=== PATIENT | female | born 1970 | race Caucasian/White ===

== ENCOUNTER → 2017-09-24 09:55 | Outpatient (CLI) | payer SELFPAY ==
[2017-09-24 12:38] LABS: Hematocrit 42.4 % (37-47); Hemoglobin 13.7 g/dl (12.0-15.0); Mean Corp Hgb Conc 32.3 g/gl (32-36); Mean Corpuscular Hgb 29.1 pg (27.0-32.0); Mean Platelet Vol. 9.3 fl (6.2-12.0); Platelet Count 303 K/mm3 (150-450); RBC Distribution Width CV 14.3 % (11.6-14.6); RBC Distribution Width SD 46.6 fl (35.1-43.9); Red Blood Count 4.71 M/mm3 (4.2-5.4); White Blood Count 8.3 K/mm3 (4.4-11.0)
[2017-09-24 12:40] LABS: Valproic Acid (Depakene) Level 101 ug/mL (50-100)
[2017-09-24 12:45] LABS: AST(SGOT) 18 U/L (15-37); Alanine Aminotransfer ALT/SGPT 34 U/L (13-56); Albumin, Serum 3.2 g/dL (3.2-5.0); Alkaline Phosphatase 98 U/L (45-117); Bilirubin, Direct 0.09 mg/dL (0.00-0.30); Free T3 2.4 pg/mL (2.18-3.98); Globulin 4.1 g/dL (2.2-4.2); Protein, Total 7.3 g/dL (6.4-8.2); T4 Free Direct 0.73 ng/dL (0.76-1.46); Thyroid Stim Hormone (TSH) 0.78 uIU/mL (0.358-3.74)
[2017-09-24 12:47] LABS: Scan Indicated on CBC? Y/N NO
== END ==
PROVIDERS: Family Provider Nurse Practitioner Primary Care; PCP Nurse Practitioner Primary Care; Visit Provider Psychiatry & Neurology Psychiatry
DX: F34.0 Cyclothymic disorder (principal); E03.9 Hypothyroidism, unspecified
CPT/HCPCS: 36415; 80076; 80164; 84439; 84443; 84481; 85027

== ENCOUNTER → 2018-04-15 10:09 | Outpatient (CLI) | payer SELFPAY ==
[2018-04-15 11:48] LABS: Hematocrit 44.3 % (37-47); Hemoglobin 14.4 g/dl (12.0-15.0); Mean Corp Hgb Conc 32.5 g/gl (32-36); Mean Corpuscular Hgb 30.1 pg (27.0-32.0); Mean Corpuscular Volume 92.7 fL (81-99); Mean Platelet Vol. 9.4 fl (6.2-12.0); Platelet Count 291 K/mm3 (150-450); RBC Distribution Width CV 14.1 % (11.6-14.6); RBC Distribution Width SD 46.5 fl (35.1-43.9); Red Blood Count 4.78 M/mm3 (4.2-5.4); Scan Indicated on CBC? Y/N NO
[2018-04-15 12:02] LABS: Valproic Acid (Depakene) Level 83 ug/mL (50-100)
[2018-04-15 12:10] LABS: AST(SGOT) 20 U/L (15-37); Alanine Aminotransfer ALT/SGPT 33 U/L (13-56); Albumin, Serum 3.2 g/dL (3.2-5.0); Alkaline Phosphatase 87 U/L (45-117); Bilirubin, Direct 0.07 mg/dL (0.00-0.30); Free T3 2.5 pg/mL (2.18-3.98); Globulin 4.3 g/dL (2.2-4.2); Protein, Total 7.5 g/dL (6.4-8.2); T4 Free Direct 0.72 ng/dL (0.76-1.46); Thyroid Stim Hormone (TSH) 1.58 uIU/mL (0.358-3.74)
== END ==
PROVIDERS: Family Provider Nurse Practitioner Primary Care; PCP Nurse Practitioner Primary Care; Referring Provider Psychiatry & Neurology Psychiatry; Visit Provider Psychiatry & Neurology Psychiatry
DX: F34.0 Cyclothymic disorder (principal); E03.9 Hypothyroidism, unspecified
CPT/HCPCS: 36415; 80076; 80164; 84439; 84443; 84481; 85027

== ENCOUNTER → 2018-10-17 08:44 | Outpatient (CLI) | payer SELFPAY ==
[2018-10-17 10:27] LABS: Hematocrit 44.2 % (37-47); Hemoglobin 14.3 g/dl (12.0-15.0); Mean Corp Hgb Conc 32.4 g/gl (32-36); Mean Corpuscular Hgb 30.1 pg (27.0-32.0); Mean Corpuscular Volume 93.1 fL (81-99); Mean Platelet Vol. 9.4 fl (6.2-12.0); Platelet Count 202 K/mm3 (150-450); RBC Distribution Width CV 13.4 % (11.6-14.6); RBC Distribution Width SD 45.6 fl (35.1-43.9); Red Blood Count 4.75 M/mm3 (4.2-5.4); White Blood Count 6.5 K/mm3 (4.4-11.0)
[2018-10-17 10:35] LABS: Scan Indicated on CBC? Y/N NO
[2018-10-17 10:50] LABS: ALB/GLOB Ratio 0.9 RATIO (0.9-2.4); AST(SGOT) 19 U/L (15-37); Alanine Aminotransfer ALT/SGPT 33 U/L (13-56); Albumin, Serum 3.2 g/dL (3.2-5.0); Alkaline Phosphatase 86 U/L (45-117); Anion Gap 8 (5-15); BUN 7 mg/dL (7-18); BUN/Creat Ratio 11.3 RATIO (10-20); Calcium,Total 8.7 mg/dL (8.5-10.1); Chloride 109 mmol/L (98-107); Cholesterol 175 mg/dL (200); Creatinine, Serum 0.62 mg/dL (0.55-1.02); EST Glomerular Filtration Rate 109 mL/min (>60); Est Glom Filt Rate - Afr Amer 132 mL/min (>60); Free T3 2.9 pg/mL (2.18-3.98); Globulin 3.6 g/dL (2.2-4.2); Glucose 81 mg/dL (74-106); High Density Lipoprotein 40 mg/dL; Potassium 4.4 mmol/L (3.5-5.1); Protein, Total 6.8 g/dL (6.4-8.2); Sodium Level 143 mmol/L (136-145); T4 Free Direct 0.83 ng/dL (0.76-1.46); Triglycerides 214 mg/dL; Very Low Density Lipoprotein 43 mg/dL (5-40)
[2018-10-17 11:19] LABS: Valproic Acid (Depakene) Level 104 ug/mL (50-100)
== END ==
PROVIDERS: Family Provider Nurse Practitioner Primary Care; PCP Nurse Practitioner Primary Care; Referring Provider Psychiatry & Neurology Psychiatry; Visit Provider Psychiatry & Neurology Psychiatry
DX: E03.9 Hypothyroidism, unspecified (principal); E78.00 Pure hypercholesterolemia, unspecified
CPT/HCPCS: 36415; 80053; 80061; 80164; 84439; 84443; 84481; 85027

== ENCOUNTER → 2019-04-21 10:04 | Outpatient (CLI) | payer SELFPAY ==
[2019-04-21 12:35] LABS: Hematocrit 47.4 % (37-47); Hemoglobin 15.2 g/dL (12.0-15.0); Mean Corp Hgb Conc 32.1 g/dL (32-36); Mean Corpuscular Hgb 30.2 pg (27.0-32.0); Mean Platelet Vol. 9.6 fl (6.2-12.0); Platelet Count 214 K/mm3 (150-450); RBC Distribution Width SD 44.7 fl (35.1-43.9); Red Blood Count 5.04 M/mm3 (4.2-5.4); White Blood Count 5.8 K/mm3 (4.4-11.0)
[2019-04-21 12:54] LABS: Valproic Acid (Depakene) Level 94 ug/mL (50-100)
[2019-04-21 12:58] LABS: AST(SGOT) 40 U/L (15-37); Alanine Aminotransfer ALT/SGPT 63 U/L (13-56); Albumin, Serum 3.4 g/dL (3.2-5.0); Alkaline Phosphatase 86 U/L (45-117); Bilirubin, Direct 0.06 mg/dL (0.00-0.30); Free T3 2.5 pg/mL (2.18-3.98); Globulin 4.1 g/dL (2.2-4.2); Protein, Total 7.5 g/dL (6.4-8.2); T4 Free Direct 0.76 ng/dL (0.76-1.46)
== END ==
PROVIDERS: Family Provider Nurse Practitioner Primary Care; PCP Nurse Practitioner Primary Care; Referring Provider Psychiatry & Neurology Psychiatry; Visit Provider Psychiatry & Neurology Psychiatry
DX: Z79.899 Other long term (current) drug therapy (principal)
CPT/HCPCS: 36415; 80076; 80164; 84439; 84443; 84481; 85027

== ENCOUNTER → 2019-10-21 07:23 | Outpatient (CLI) | payer SELFPAY ==
[2019-10-21 09:54] LABS: Hematocrit 46.7 % (37-47); Hemoglobin 14.9 g/dL (12.0-15.0); Mean Corp Hgb Conc 31.9 g/dL (32-36); Mean Corpuscular Hgb 29.9 pg (27.0-32.0); Mean Corpuscular Volume 93.8 fL (81-99); Mean Platelet Vol. 9.5 fl (6.2-12.0); Platelet Count 248 K/mm3 (150-450); RBC Distribution Width SD 44.6 fl (35.1-43.9); Red Blood Count 4.98 M/mm3 (4.2-5.4); White Blood Count 7.4 K/mm3 (4.4-11.0)
[2019-10-21 10:01] LABS: Valproic Acid (Depakene) Level 83 ug/mL (50-100)
[2019-10-21 10:14] LABS: AST(SGOT) 17 U/L (15-37); Alanine Aminotransfer ALT/SGPT 33 U/L (13-56); Albumin, Serum 3.2 g/dL (3.2-5.0); Alkaline Phosphatase 87 U/L (45-117); Anion Gap 7 (5-15); BUN 13 mg/dL (7-18); BUN/Creat Ratio 18.2 RATIO (10-20); Bilirubin, Direct 0.09 mg/dL (0.00-0.30); Chloride 105 mmol/L (98-107); Cholesterol 195 mg/dL (200); Creatinine, Serum 0.71 mg/dL (0.55-1.02); EST Glomerular Filtration Rate 92 mL/min (>60); Est Glom Filt Rate - Afr Amer 112 mL/min (>60); Globulin 4.2 g/dL (2.2-4.2); Glucose 108 mg/dL (74-106); High Density Lipoprotein 32 mg/dL; Potassium 3.7 mmol/L (3.5-5.1); Protein, Total 7.4 g/dL (6.4-8.2); Sodium Level 141 mmol/L (136-145); T4 Free Direct 0.77 ng/dL (0.76-1.46); Thyroid Stim Hormone (TSH) 0.11 uIU/mL (0.358-3.74); Triglycerides 397 mg/dL; Very Low Density Lipoprotein 79 mg/dL (5-40)
== END ==
PROVIDERS: PCP Nurse Practitioner Primary Care; Referring Provider Nurse Practitioner Primary Care; Visit Provider Nurse Practitioner Primary Care
DX: I10 Essential (primary) hypertension (principal); E78.2 Mixed hyperlipidemia; E03.9 Hypothyroidism, unspecified; Z79.899 Other long term (current) drug therapy
CPT/HCPCS: 36415; 80048; 80061; 80076; 80164; 84439; 84443; 84481; 85027

== ENCOUNTER → 2020-03-03 | Outpatient (CLI) | payer MEDICARE, SELFPAY | END | disposition home or self-care (01) | LOC: LABSPEC 16:54 | PROVIDERS: Referring Provider Family Medicine; Visit Provider Family Medicine | DX: Z03.818 Encounter for observation for suspected exposure to other biological agents ruled out (principal) | CPT/HCPCS: 87635; U0003 ==

== ENCOUNTER → 2020-03-17 | Outpatient (CLI) | payer MEDICARE, SELFPAY | END | disposition home or self-care (01) | LOC: LABSPEC 13:13 | PROVIDERS: Referring Provider Family Medicine; Visit Provider Family Medicine | DX: Z11.59 Encounter for screening for other viral diseases (principal) | CPT/HCPCS: 87635; U0003 ==

== ENCOUNTER → 2020-03-31 | Outpatient (CLI) | payer MEDICARE, SELFPAY | END | disposition home or self-care (01) | LOC: LABSPEC 12:42 | PROVIDERS: Referring Provider Family Medicine; Visit Provider Family Medicine | DX: Z03.818 Encounter for observation for suspected exposure to other biological agents ruled out (principal) | CPT/HCPCS: 87635; U0003 ==

== ENCOUNTER → 2020-04-14 | Outpatient (CLI) | payer MEDICARE, SELFPAY | END | disposition home or self-care (01) | LOC: LABSPEC 10:52 | PROVIDERS: Referring Provider Family Medicine; Visit Provider Family Medicine | DX: Z03.818 Encounter for observation for suspected exposure to other biological agents ruled out (principal) | CPT/HCPCS: 87635; U0003 ==

== ENCOUNTER → 2020-04-21 10:15 | Outpatient (CLI) | payer SELFPAY ==
[2020-04-21 12:25] LABS: Hematocrit 48.6 % (37-47); Hemoglobin 15.2 g/dL (12.0-15.0); Mean Corp Hgb Conc 31.3 g/dL (32-36); Mean Corpuscular Hgb 29.5 pg (27.0-32.0); Mean Corpuscular Volume 94.2 fL (81-99); Mean Platelet Vol. 9.1 fl (6.2-12.0); Platelet Count 265 K/mm3 (150-450); RBC Distribution Width SD 44.8 fl (35.1-43.9); Red Blood Count 5.16 M/mm3 (4.2-5.4); White Blood Count 7.4 K/mm3 (4.4-11.0)
[2020-04-21 13:09] LABS: AST(SGOT) 18 U/L (15-37); Alanine Aminotransfer ALT/SGPT 31 U/L (13-56); Albumin, Serum 3.4 g/dL (3.2-5.0); Alkaline Phosphatase 89 U/L (45-117); Bilirubin, Direct 0.05 mg/dL (0.00-0.30); Free T3 2.4 pg/mL (2.18-3.98); Globulin 4.2 g/dL (2.2-4.2); Protein, Total 7.6 g/dL (6.4-8.2); T4 Free Direct 0.77 ng/dL (0.76-1.46); Thyroid Stim Hormone (TSH) 0.08 uIU/mL (0.358-3.74)
[2020-04-21 13:14] LABS: Valproic Acid (Depakene) Level 102 ug/mL (50-100)
== END ==
PROVIDERS: PCP Nurse Practitioner Primary Care; Referring Provider Psychiatry & Neurology Psychiatry; Visit Provider Psychiatry & Neurology Psychiatry
DX: Z51.81 Encounter for therapeutic drug level monitoring (principal); Z79.899 Other long term (current) drug therapy; E03.9 Hypothyroidism, unspecified
CPT/HCPCS: 36415; 80076; 80164; 84439; 84443; 84481; 85027

== ENCOUNTER → 2020-04-28 | Outpatient (CLI) | payer MEDICARE, SELFPAY | END | disposition home or self-care (01) | LOC: LABSPEC 13:33 | PROVIDERS: PCP Nurse Practitioner Primary Care; Referring Provider Family Medicine; Visit Provider Family Medicine | DX: Z03.818 Encounter for observation for suspected exposure to other biological agents ruled out (principal) | CPT/HCPCS: 87635; U0003 ==

== ENCOUNTER → 2020-12-08 07:32 | Outpatient (CLI) | payer OTHER, SELFPAY ==
[2020-12-08 10:04] LABS: Hematocrit 49.6 % (37-47); Hemoglobin 15.9 g/dL (12.0-15.0); Mean Corp Hgb Conc 32.1 g/dL (32-36); Mean Corpuscular Hgb 29.6 pg (27.0-32.0); Mean Corpuscular Volume 92.4 fL (81-99); Mean Platelet Vol. 9.6 fl (6.2-12.0); Platelet Count 252 K/mm3 (150-450); RBC Distribution Width CV 13.2 % (11.6-14.6); RBC Distribution Width SD 44.9 fl (35.1-43.9); Red Blood Count 5.37 M/mm3 (4.2-5.4); White Blood Count 6.7 K/mm3 (4.4-11.0)
[2020-12-08 10:17] LABS: Valproic Acid (Depakene) Level 88 ug/mL (50-100)
[2020-12-08 10:40] LABS: ALB/GLOB Ratio 0.9 RATIO (0.9-2.4); AST(SGOT) 23 U/L (15-37); Alanine Aminotransfer ALT/SGPT 38 U/L (13-56); Albumin, Serum 3.6 g/dL (3.2-5.0); Alkaline Phosphatase 92 U/L (45-117); Anion Gap 8 (5-15); BUN 11 mg/dL (7-18); BUN/Creat Ratio 15.8 RATIO (10-20); Bilirubin, Direct 0.08 mg/dL (0.00-0.30); Calcium,Total 9.3 mg/dL (8.5-10.1); Chloride 104 mmol/L (98-107); Cholesterol 208 mg/dL (200); EST Glomerular Filtration Rate 95 mL/min (>60); Est Glom Filt Rate - Afr Amer 114 mL/min (>60); Free T3 2.6 pg/mL (2.18-3.98); Glucose 89 mg/dL (74-106); High Density Lipoprotein 42 mg/dL; Potassium 4.1 mmol/L (3.5-5.1); Protein, Total 7.6 g/dL (6.4-8.2); Sodium Level 139 mmol/L (136-145); Thyroid Stim Hormone (TSH) 0.24 uIU/mL (0.358-3.74); Triglycerides 268 mg/dL; Very Low Density Lipoprotein 54 mg/dL (5-40)
== END ==
PROVIDERS: PCP Nurse Practitioner Primary Care; Referring Provider Psychiatry & Neurology Psychiatry; Visit Provider Psychiatry & Neurology Psychiatry
DX: E78.2 Mixed hyperlipidemia (principal); I10 Essential (primary) hypertension
CPT/HCPCS: 36415; 80053; 80061; 80164; 82248; 84439; 84443; 84481; 85027

== ENCOUNTER 2021-08-18 08:27 | Outpatient (CLI) | payer SELFPAY ==
[2021-08-18 09:57] LABS: Hematocrit 46.4 % (37-47); Hemoglobin 15.1 g/dL (12.0-15.0); Mean Corp Hgb Conc 32.5 g/dL (32-36); Mean Corpuscular Hgb 30.6 pg (27.0-32.0); Mean Corpuscular Volume 93.9 fL (81-99); Mean Platelet Vol. 9.5 fl (6.2-12.0); Platelet Count 231 K/mm3 (150-450); RBC Distribution Width CV 13.2 % (11.6-14.6); RBC Distribution Width SD 45.5 fl (35.1-43.9); Red Blood Count 4.94 M/mm3 (4.2-5.4); White Blood Count 7.2 K/mm3 (4.4-11.0)
[2021-08-18 10:12] LABS: Valproic Acid (Depakene) Level 97 ug/mL (50-100)
[2021-08-18 10:17] LABS: AST(SGOT) 27 U/L (15-37); Alanine Aminotransfer ALT/SGPT 45 U/L (13-56); Albumin, Serum 3.4 g/dL (3.2-5.0); Alkaline Phosphatase 87 U/L (45-117); Bilirubin, Direct 0.08 mg/dL (0.00-0.30); Free T3 2.5 pg/mL (2.18-3.98); Globulin 4.1 g/dL (2.2-4.2); Protein, Total 7.5 g/dL (6.4-8.2); T4 Free Direct 0.88 ng/dL (0.76-1.46); Thyroid Stim Hormone (TSH) 0.43 uIU/mL (0.358-3.74)
== END 2021-08-18 23:59 | disposition home or self-care (01) ==
PROVIDERS: PCP Nurse Practitioner Primary Care; Referring Provider Psychiatry & Neurology Psychiatry; Visit Provider Psychiatry & Neurology Psychiatry
DX: E03.9 Hypothyroidism, unspecified (principal)
CPT/HCPCS: 36415; 80076; 80164; 84439; 84443; 84481; 85027

== ENCOUNTER → 2022-04-09 | Outpatient (CLI) | payer SELFPAY ==
[2022-04-09 10:01] LABS: Hematocrit 45.8 % (37-47); Hemoglobin 14.7 g/dL (12.0-15.0); Mean Corp Hgb Conc 32.1 g/dL (32-36); Mean Corpuscular Hgb 29.8 pg (27.0-32.0); Mean Corpuscular Volume 92.9 fL (81-99); Mean Platelet Vol. 9.3 fl (6.2-12.0); Platelet Count 244 K/mm3 (150-450); RBC Distribution Width CV 13.2 % (11.6-14.6); RBC Distribution Width SD 44.9 fl (35.1-43.9); Red Blood Count 4.93 M/mm3 (4.2-5.4); White Blood Count 8.4 K/mm3 (4.4-11.0)
[2022-04-09 11:20] LABS: AST(SGOT) 19 U/L (15-37); Alanine Aminotransfer ALT/SGPT 31 U/L (13-56); Albumin, Serum 3.3 g/dL (3.2-5.0); Alkaline Phosphatase 79 U/L (45-117); Bilirubin, Direct 0.08 mg/dL (0.00-0.30); Free T3 2.8 pg/mL (2.18-3.98); Globulin 4.3 g/dL (2.2-4.2); Protein, Total 7.6 g/dL (6.4-8.2); T4 Free Direct 0.82 ng/dL (0.76-1.46); Thyroid Stim Hormone (TSH) 0.27 uIU/mL (0.358-3.74); Valproic Acid (Depakene) Level 75 ug/mL (50-100)
== END | disposition home or self-care (01) ==
PROVIDERS: PCP Nurse Practitioner Primary Care; Referring Provider Psychiatry & Neurology Psychiatry; Visit Provider Psychiatry & Neurology Psychiatry
DX: E03.9 Hypothyroidism, unspecified (principal); Z79.899 Other long term (current) drug therapy
CPT/HCPCS: 36415; 80076; 80164; 84439; 84443; 84481; 85027

== ENCOUNTER → 2022-10-08 | Outpatient (CLI) | payer SELFPAY ==
[2022-10-08 09:59] LABS: Hematocrit 46.4 % (37-47); Hemoglobin 14.5 g/dL (12.0-15.0); Mean Corp Hgb Conc 31.3 g/dL (32-36); Mean Corpuscular Hgb 29.1 pg (27.0-32.0); Mean Corpuscular Volume 93.2 fL (81-99); Mean Platelet Vol. 9.1 fl (6.2-12.0); Platelet Count 255 K/mm3 (150-450); RBC Distribution Width SD 44.2 fl (35.1-43.9); Red Blood Count 4.98 M/mm3 (4.2-5.4)
[2022-10-08 10:40] LABS: Valproic Acid (Depakene) Level 98 ug/mL (50-100)
[2022-10-08 10:44] LABS: AST(SGOT) 16 U/L (15-37); Alanine Aminotransfer ALT/SGPT 31 U/L (13-56); Albumin, Serum 3.3 g/dL (3.2-5.0); Alkaline Phosphatase 88 U/L (45-117); Bilirubin, Direct 0.09 mg/dL (0.00-0.30); Free T3 2.7 pg/mL (2.18-3.98); Globulin 4.1 g/dL (2.2-4.2); Protein, Total 7.4 g/dL (6.4-8.2); T4 Free Direct 1.06 ng/dL (0.76-1.46)
== END | disposition home or self-care (01) ==
PROVIDERS: PCP Nurse Practitioner Primary Care; Referring Provider Psychiatry & Neurology Psychiatry; Visit Provider Psychiatry & Neurology Psychiatry
DX: Z51.81 Encounter for therapeutic drug level monitoring (principal); Z79.899 Other long term (current) drug therapy
CPT/HCPCS: 36415; 80076; 80164; 84439; 84443; 84481; 85027

== ENCOUNTER → 2025-01-14 | Outpatient (CLI) | payer SELFPAY ==
[2025-01-14 15:26] LABS: Hematocrit 44.6 % (37-47); Hemoglobin 14.6 g/dL (12.0-15.0); Immature Granulocytes Count 0.040 X10^3/uL (0.0-0.0); Mean Corp Hgb Conc 32.7 g/dL (32-36); Mean Corpuscular Volume 89.4 fL (81-99); Mean Platelet Vol. 9.3 fl (6.2-12.0); NRBC Flagged by Analyzer 0 % (0-5); Platelet Count 370 K/mm3 (150-450); RBC Distribution Width CV 13.2 % (11.6-14.6); RBC Distribution Width SD 43.5 fl (35.1-43.9); Red Blood Count 4.99 M/mm3 (4.2-5.4); White Blood Count 9.1 K/mm3 (4.4-11.0)
[2025-01-20 07:08] LABS: Ash, White <0.10 kU/L (Class 0); Black Walnut <0.10 kU/L (Class 0); Cat Hair / Dander,Stand <0.10 kU/L (Class 0); Cedar, Mountain <0.10 kU/L (Class 0); Cockroach, American <0.10 kU/L (Class 0); Dog Epithelia <0.10 kU/L (Class 0); Elm, American White <0.10 kU/L (Class 0); Mulberry, White <0.10 kU/L (Class 0); Oak, White <0.10 kU/L (Class 0); Pigweed, Rough <0.10 kU/L (Class 0); Ragweed, Short/Common <0.10 kU/L (Class 0); Sycamore, American <0.10 kU/L (Class 0)
[2025-01-20 16:09] LABS: Aspirgillus flavus Negative (Neg:<1:1); Aspirgillus fumigatus Negative (Neg:<1:1); Aspirgillus niger Negative (Neg:<1:1); Cytoplasmic Ab (C-ANCA) <1:20 titer (Neg:<1:20); Perinuclear Ab (P-ANCA) <1:20 titer (Neg:<1:20)
== END | disposition home or self-care (01) ==
PROVIDERS: PCP Nurse Practitioner Primary Care; Referring Provider Internal Medicine Critical Care Medicine; Visit Provider Internal Medicine Critical Care Medicine
DX: R05.3 Chronic cough (principal); J45.909 Unspecified asthma, uncomplicated
CPT/HCPCS: 36415; 82785; 85025; 86003; 86037; 86606

== ENCOUNTER → 2025-05-03 | Outpatient (CLI) | payer SELFPAY ==
--- NOTE | 2025-05-03 12:36 | ECHOD_ITS ---
Reason For Study Reason For Study: SOB Procedure This was a 2D Doppler, Color Flow transthoracic echocardiogram. The study was technically difficult. Contrast injection was performed. Exam performed in department. Left Ventricle Normal LV size. The left ventricular ejection fraction is 55 %. No regional wall motion abnormalities noted. Right Ventricle Normal RV size. Normal systolic function. Atria Normal left atrium. Normal right atrium. Mitral Valve Normal mitral valve. Tricuspid Valve Normal tricuspid valve. Aortic Valve The aortic valve is not well visualized. Pulmonic Valve The pulmonic valve is not well visualized. Great Vessels Normal aortic root. The pulmonary artery is normal size. Inferior vena cava collapse with respiration. Pericardium/Pleural No pericardial effusion. Medication 22 gauge I.V. with prn adaptor inserted into right arm. Diluted definity 2ml given slow IV push to enhance endocardial definition. MMode/2D Measurements & Calculations LVIDd: 4.6 cm IVSd: 1.0 cm Ao root diam: 3.3 cm LVIDs: 2.7 cm LVPWd: 1.4 cm FS: 40.3 % LVAd ap4: 27.3 cm2 SV(MOD-sp4): 46.2 ml SV(sp4-el): 48.4 ml LVLd ap4: 7.5 cm SI(MOD-sp4): 24.6 ml/m2 EDV(MOD-sp4): 83.4 ml EDV(sp4-el): 84.6 ml LVAs ap4: 16.3 cm2 LVLs ap4: 6.3 cm ESV(MOD-sp4): 37.2 ml ESV(sp4-el): 36.2 ml EF(MOD-sp4): 55.4 % EF(sp4-el): 57.2 % LA dimension(2D): 3.9 cm Time Measurements MV dec time: 0.16 sec Doppler Measurements & Calculations MV E max zander: 74.1 cm/sec MV V2 max: 77.7 cm/sec MV A max zander: 65.0 cm/sec MV max P.4 mmHg MV dec slope: 474.7 cm/sec2 MV E/A: 1.1 MV V2 mean: 54.3 cm/sec MV mean P.3 mmHg MV V2 VTI: 23.2 cm Ao V2 max: 121.1 cm/sec LV V1 max: 96.5 cm/sec PA V2 max: 94.5 cm/sec Ao max P.0 mmHg LV V1 max P.7 mmHg PA V2 mean: 63.5 cm/sec Ao V2 mean: 88.2 cm/sec LV V1 mean P.0 mmHg Ao mean P.5 mmHg LV V1 mean: 66.0 cm/sec Ao V2 VTI: 23.3 cm LV V1 VTI: 21.1 cm AV (velocity ratio): 0.91 ECHO/Echo Complete W/ Contrast Interpretation Summary Normal LV size. The left ventricular ejection fraction is 55 %. Contrast injection was performed. Ordering Physician: Mary Valdivia Referring Physician: Mary Valdivia Performed By: Ebony Hernandes RCS
--- NOTE | 2025-05-03 14:26 | STRESSREP ---
Stress Test Report Exercise stress test. 55-year-old lady with a history of chest pain. Stress protocol: Resting EKG demonstrates normal sinus rhythm with a rate of 82 bpm resting blood pressure is 164/90 mmHg. The patient exercised according to the regular Jae protocol for a total duration of 6 minutes attaining a maximum heart rate of 129 bpm which was 78% of maximum predicted heart rate; the maximum workload was 7 metabolic equivalents. At rest there were no ST or T wave changes noted to suggest ischemia and at peak exercise upsloping ST changes only were noted which did not meet the criteria for ischemia. No clinical angina was noted the test was terminated due to the target heart rate being achieved/fatigue. The peak blood pressure was 194/90 mmHg. Rate-pressure product was 24,400. Conclusion: Stress test with no EKG criteria for ischemia at a moderate workload. No arrhythmias noted.
--- OUTSIDE RECORDS SUMMARY | 2025-05-03 14:55 | XMS RPT_ITS | CCD ---
Author Organization [facility] CliniSyia Care Team Providers Care Email Marketing Executive Name Role Phone DEMOND HACKLER DOLL WIGS-COAL MINER, JOEL S Primary Care Physicia n Josemanuel PT, Cristy Unavailable Unavailable DEMOND HACKLER DOLL WIGS-COAL MINER, JOEL S Primary Care Unava ilable DEMOND HACKLER DOLL WIGS-COAL MINER, JOEL S Attending Unava ilable DEMOND HACKLER DOLL WIGS-COAL MINER, JOEL S Primary Care Unava ilable DEMOND HACKLER DOLL WIGS-COAL MINER, JOEL S Attending Unava ilable FRATENA HACKLER DOLL WIGS-PLATFORM LOADER, SAMMY Carmichael Attending Un available DEMOND HACKLER DOLL WIGS-COAL MINER, JOEL S Primary Care Unava ilable DEMOND HACKLER DOLL WIGS-COAL MINER, JOEL S Primary Care Unava ilable DEMOND HACKLER DOLL WIGS-COAL MINER, JOEL S Attending Unava ilable Demond DISTRIBUTION AGENT-C, Joel Primary Care Provider Dmeond DISTRIBUTION AGENT-C Joel Referring Provider Dr. Akin Meredith DO Attending Provider [phone] Dr. Akin Meredith DO Referring Provider [facility] Attending Provider FRATENA HACKLER DOLL WIGS-PLATFORM LOADER, SAMMY Carmichael Attending Un available DEMOND HACKLER DOLL WIGS-COAL MINER, JOEL S Primary Care Unava ilable DEMOND HACKLER DOLL WIGS-COAL MINER, JOEL S Attending Unava ilable DEMOND HACKLER DOLL WIGS-COAL MINER, JOEL S Primary Care Unava ilable DEMOND HACKLER DOLL WIGS-COAL MINER, JOEL S Primary Care Unava ilable FRATENA HACKLER DOLL WIGS-PLATFORM LOADER, SAMMY A Attending Un available DEMOND HACKLER DOLL WIGS-COAL MINER, JOEL S Attending Unava ilable DEMOND HACKLER DOLL WIGS-COAL MINER, JOEL S Primary Care Unava ilable DEMOND HACKLER DOLL WIGS-COAL MINER, JOEL S Attending Unava ilable DEMOND HACKLER DOLL WIGS-COAL MINER, JOEL S Primary Care Unava ilable DEMOND HACKLER DOLL WIGS-COAL MINER, JOEL S Attending Unava ilable DEMOND HACKLER DOLL WIGS-COAL MINER, JOEL S Primary Care Unava ilable DEMOND HACKLER DOLL WIGS-COAL MINER, JOEL S Attending Unava ilable DEMOND HACKLER DOLL WIGS-COAL MINER, JOEL S Primary Care Unava ilable [place], Joel Referring Unavailable Mary Valdivia Attending Unavailable Demond, Joel Primary Care Unavailable Akin Meredith Attending Unavailable Akin Meredith Referring Unavailable Demond, Joel Primary Care Unavailable Demond, Joel Primary Care Unavailable Mary Valdivia Attending Unavailable Mary Valdivia Referring Unavailable [place], Joel Referring Unavailable Mary Valdivia Attending Unavailable Demond, Joel Primary Care Unavailable Demond, Joel Primary Care Unavailable [place], Joel Referring Unavailable Akin Meredith Attending Unavailable Demond DISTRIBUTION AGENT-CJoel Primary Care Physician [phone] Demond [facility] Rivera Referring Provider Dr. Akin Meredith DO Attending Physician [phone] Dr. Akin Meredith DO Referring Provider [phone] Mary Guajardo Attending Physician [phone] Allergies Allergy Classification Reported Allergen(s) Allergy Type Date of Onset Reaction(s) Facility (14 sources) meloxicam; Translations: [meloxicam] Drug Allergy 5 Diarrhea (finding) [facility] (10 sources) Sulfonamides (Antibiotic); Translations: [sulfa drugs] Drug allergy Eruption of skin (disorder) [facility] (4 sources) Sulfonamides (Antibiotic) Allergy to substance 5 Rash [facility] (1 source) meloxicam Drug Allergy 5 [facility] (1 source) Sulfonamides (Antibiotic) Drug allergy (disorder) 5 [facility] Medications Current Medications Medication Drug Class(es) Dates Sig (Normalized) Sig (Original) 200 actuat albuterol 0.09 mg/actuat dry powder inhaler (4 sources) beta2-Adrenergic Agonist Start: 01-07-2025 albuterol MDI (90 mcg/inh) CFC free inhalation aerosol (5 sources) Start: 09-29-2024 take 1-2 puff(s) by inhalation every four hours as needed for wheezing albuterol MDI (90 mcg/inh) CFC free inhalation aerosol See Instructions, PRN Shortness of breath or wheezing, 1 to 2 puff(s) Inhalation q4h, # 18 gram(s), 11 Refill(s), Pharmacy: [facility], Community acquired pneumonia Wheezing, 165, cm, 09/29/24 10:12:00 EDT, Height, kg, 09/29/24 10:12:00 EDT, Dosing Weight Start Date: 09/29/24 Status: Ordered Medication Dispense Status: Completed Quantity: 18.0 Unit: g Total Allowed Fills: 12 Fills Dispensed: 0 Indications: Pneumonia, unspecified organism; Wheezing; Start: 01-12-2022 take 2 puff(s) by in halation every four hours as needed for wheezing albuterol MDI (90 mcg/inh) CFC free inhalation aerosol 2 puff(s), Inhalation, q4h, PRN as needed for wheezing, # 18 gram(s), 0 Refill(s), Pharmacy: [facility], Right lower lobe pneumonia, 165.8, cm, 01/12/22 16:49:00 EDT, Height Start Date: 01/12/22 Status: Ordered buPROPion hydrochloride 100 mg oral tablet (6 sources) Aminoketone Start: 08-08-2014 buPROPion 100 mg oral tablet Dose : 100 mg = 1 tab(s), Oral, Daily Start Date: 08/08/14 Status: Ordered clotrimazole 10 mg/ml topical cream (3 sources) Azole Antifungal Start: 01-29-2024 apply 1 dose topically twice daily clotrimazole 1% topical cream Apply 1 juaquin, Topical, BID, # 60 gram(s), 0 Refill(s), Pharmacy: [facility], Cream, 165, cm, 01/29/24 10:49:00 EDT, Height, 80.8, kg, 01/29/24 10:49:00 EDT, Dosing Weight Start Date: 01/29/24 Status: Ordered Medication Dispense Status: Completed Quantity: 60.0 Unit: g Total Allowed Fills: 1 Fills Dispensed: 0 FLUoxetine 20 mg oral capsule (8 sources) Serotonin Reuptake Inhibitor Start: 04-06-2025 take 2 capsules by mouth once daily Start: 01-29-2024 End: 04-06-2025 take 1 capsule by mouth once daily Fluoxetine 20 mg capsule Discontinued 20 mg PO daily January 06, 2025 11:00pm April 06, 2025 12:51pm Fluticasone Propion-Salmeter ol (4 sources) Corticosteroid, beta2-Adrenergic Agonist Start: 01-07-2025 Start: 01-07-2025 Fluticasone Pr opion-Salmeterol 250-50 mcg/dose blister with device Active 1 NMA INHALATION TWICE A DAY January 07, 2025 12:00am fluticasone-salmeterol 250 mcg-50 mcg/inh inhalation powder (2 sources) Start: 09-17-2024 take 1 dose by inhalation twice daily fluticasone-salmeterol 250 mcg-50 mcg/inh inhalation powder Dose = 1 puff(s), Inhalation, BID, # 60 EA, 11 Refill(s) Start Date: 09/17/24 Status: Ordered Medication Dispense Status: Completed Quantity: 60.0 Unit: EA Total Allowed Fills: 12 Fills Dispensed: 0 levothyroxine sodium 0.1 mg oral capsule (13 sources) l-Th yrox ine Start: 01-07-2025 take 1 capsule by mouth once daily Start: 09-29-2024 levothyroxine 100 mcg (0.1 mg) oral tablet Dose : 100 mcg = 1 tab(s), Oral, qDay, # 90 tab(s), 3 Refill(s), Pharmacy: [facility], 165, cm, 09/29/24 10:12:00 EDT, Height, kg, 09/29/24 10:12:00 EDT, Dosing Weight Start Date: 09/29/24 Status: Ordered Medication Dispense Status: Completed Quantity: 90.0 Unit: tab(s) Total Allowed Fills: 4 Fills Dispensed: 0 Start: 10-08-2023 End: 11-11-2024 levothyroxine 112 mcg (0.112 mg) oral tablet Dose : 112 mcg = 1 tab(s), Oral, qDay, # 100 tab(s), 3 Refill(s), Pharmacy: [facility], 165, cm, 07/23/23 7:21:00 EST, Height, kg, 07/23/23 7:21:00 EST, Dosing Weight Start Date: 10/08/23 Stop Date: 11/11/24 Status: Ordered Start: 06-13-2023 levothyroxine 112 mcg (0.112 mg) oral tablet Dose : 112 mcg = 1 tab(s), Oral, qDay, # 90 tab(s), 0 Refill(s), Pharmacy: [facility], 165, cm, 07/03/22 8:04:00 EST, Height, kg, 07/03/22 8:04:00 EST, Dosing Weight Start Date: 06/13/23 Status: Ordered Start: 03-05-2023 levothyroxine 112 mcg (0.112 mg) oral tablet Dose : 112 mcg = 1 tab(s), Oral, qDay, # 90 tab(s), 0 Refill(s), Pharmacy: [facility], 165, cm, 07/03/22 8:04:00 EST, Height, kg, 07/03/22 8:04:00 EST, Dosing Weight Start Date: 03/05/23 Status: Ordered Start: 12-04-2022 levothyroxine 112 mcg (0.112 mg) oral tablet Dose : 112 mcg = 1 tab(s), Oral, qDay, # 90 tab(s), 0 Refill(s), Pharmacy: [facility], 165, cm, 07/03/22 8:04:00 EST, Height Start Date: 12/04/22 Status: Ordered Start: 08-08-2014 Levothroid 112 mcg (0.112 mg) oral tablet Dose : 112 mcg = 1 tab(s), Oral, qDayAC, 0 Refill(s) Start Date: 08/08/14 Status: Ordered Start: 08-08-2014 Levothroid 112 mcg (0.112 mg) oral tablet Dose : 112 mcg = 1 tab(s), Oral, qDayAC, 0 Refill(s) Start Date: 08/08/14 Status: Ordered liothyronine sodium 0.005 mg oral tablet (5 sources) l-Triiodothyronine Start: 03-05-2023 liothyronin e 5 mcg oral tablet Dose : 5 mcg = 1 tab(s), Oral, qDay, # 90 tab(s), 0 Refill(s), Pharmacy: [facility], 165, cm, 07/03/22 8:04:00 EST, Height, kg, 07/03/22 8:04:00 EST, Dosing Weight Start Date: 03/05/23 Status: Ordered Start: 12-04-2022 liothyronine 5 mcg oral tablet Dose : 5 mcg = 1 tab(s), Oral, qDay, # 90 tab(s), 0 Refill(s), Pharmacy: [facility], 165, cm, 07/03/22 8:04:00 EST, Height Start Date: 12/04/22 Status: Ordered Start: 07-18-2021 liothyronine 5 mcg oral tablet 0 Refill(s) Start Date: 07/18/21 Status: Ordered losartan potassium 50 mg oral tablet (4 sources) Angiotensin 2 Receptor [place] Start: 03-02-2025 take 1 tablet by mouth once daily Start: 01-19-2025 losartan 50 mg oral tablet Dose : 50 mg = 1 tab(s), Oral, qDay, # 90 tab(s), 3 Refill(s), Pharmacy: [facility], 165, cm, 09/29/24 10:12:00 EDT, Height, kg, 09/29/24 10:12:00 EDT, Dosing Weight Start Date: 01/19/25 Status: Ordered Medication Dispense Status: Completed Quantity: 90.0 Unit: tab(s) Total Allowed Fills: 4 Fills Dispensed: 0 metroNIDAZOLE 500 mg oral tablet (1 source) Nitroimidazole Antimicrobial Start: 02-02-2024 End: 02-09-2024 metroNIDAZOLE 500 mg oral tablet Dose : 500 mg = 1 tab(s), Oral, q12h, X 7 day(s), # 14 tab(s), 0 Refill(s), 02/09/24 10:04:00 PM EDT, Pharmacy: [facility], 165, cm, 01/29/24 10:49:00 EDT, Height, 80.8, kg, 01/29/24 10:49:00 EDT, Dosing Weight Start Date: 02/02/24 Stop Date: 02/09/24 Status: Ordered omeprazole 20 mg delayed release oral tablet (2 sources) Proton Pump Inhibitor Start: 03-02-2025 take 1 tablet by mouth twice daily 30 minutes before breakfast predniSONE 20 mg oral tablet (1 source) Start: 04-06-2025 take 2 tablets by mouth once daily, then take 1 tablet by mouth once daily simvastatin 20 mg oral tablet (13 sources) HMG-CoA Reductase Inhibitor Start: 09-16-2024 End: 09-11-2025 take 1 tablet by mouth at bedtime Start: 07-23-2023 End: 07-17-2024 simvastatin 20 mg oral table t Dose : 20 mg = 1 tab(s), Oral, qHS, # 90 tab(s), 3 Refill(s), Pharmacy: [facility], 165, cm, 07/23/23 7:21:00 EST, Height, kg, 07/23/23 7:21:00 EST, Dosing Weight Start Date: 07/23/23 Stop Date: 07/17/24 Status: Ordered Start: 07-18-2021 End: 06-28-2023 simvastatin 20 mg oral table t Dose : 20 mg = 1 tab(s), Oral, qHS, # 90 tab(s), 3 Refill(s), Pharmacy: [facility], 165, cm, 07/03/22 8:04:00 EST, Height, kg, 07/03/22 8:04:00 EST, Dosing Weight Start Date: 07/03/22 Stop Date: 06/28/23 Status: Ordered SUMAtriptan 50 mg oral tablet (11 sources) Serotonin-1b and Serotonin-1d Receptor Agonist Start: 01-07-2025 take 1 tablet by mouth every two hours Start: 07-23-2023 End: 07-17-2024 SUMAtriptan 50 mg oral table t Dose : 50 mg = 1 tab(s), Oral, qDay, PRN as needed for migraine headache, 1 tab onset , may repeat in 2 hrs. MAX 4 tab(s)/24hrs, X 90 day(s), # 27 tab(s), 3 Refill(s), 07/17/24 7:47:00 AM EST, Pharmacy: [facility], 165, cm, 07/23/23 7:21:00 EST, Height, kg, 07/23/23 7:21:00 EST, Dosing Weight Start Date: 07/23/23 Stop Date: 07/17/24 Status: Ordered Start: 07-03-2022 take 1 tablet by nettie th every twenty-four hours SUMAtriptan 100 mg oral tablet Dose : 100 mg = 1 tab(s), Oral, qDay, PRN as needed for migraine headache, may repeat dose after 2 hours up to a maximum of 200 mg in 24 hours, # 27 tab(s), 1 Refill(s), Pharmacy: [facility], 165, cm, 07/03/22 8:04:00 EST, Height, kg, 07/03/22 8:04:00 EST, Dosing Weight Start Date: 07/03/22 Status: Ordered Start: 07-18-2021 take 1 tablet by nettie th every twenty-four hours SUMAtriptan 100 mg oral tablet Dose : 100 mg = 1 tab(s), Oral, qDay, PRN as needed for migraine headache, may repeat dose after 2 hours up to a maximum of 200 mg in 24 hours, # 27 tab(s), 0 Refill(s), Pharmacy: [place] [id number], 165, cm, 07/18/21 8:42:00 EST, Height, kg, 07/18... Start Date: 07/18/21 Status: Ordered divalproex sodium 500 mg delayed release oral tablet (13 sources) Mood Stabilizer, Anti-epileptic Agent Start: 01-07-2025 take 1 tablet by mouth twice daily Start: 04-13-2024 divalproex sod ium 500 mg oral tablet, extended release Dose : 500 mg = 1 tab(s), BID, TAKE 1 TABLET BY MOUTH TWICE DAILY Start Date: 04/13/24 Status: Ordered Medication Dispense Status: Completed Total Allowed Fills: 1 Fills Dispensed: 0 Start: 08-08-2014 take 1 tablet by nettie th in the morning, then take 2 tablets by mouth in the evening divalproex sodium 500 mg oral tablet, extended release See Instructions, 1 tab in the am, 2 tabs the pm Start Date: 08/08/14 Status: Ordered 24 hr verapamil hydrochloride 240 mg extended release oral capsule (13 sources) Calcium Channel [place] Start: 01-07-2025 take 1 capsule by mouth once daily in the morning Start: 09-29-2024 End: 09-24-2025 take 1 tablet by mouth every hour, then take 1 tablet by mouth once daily in the morning verapamil 240 mg/12 hours oral tablet, extended release Dose : 240 mg = 1 tab(s), Oral, qAM, # 90 tab(s), 3 Refill(s), Pharmacy: [facility], 165, cm, 09/29/24 10:12:00 EDT, Height, kg, 09/29/24 10:12:00 EDT, Dosing Weight Start Date: 09/29/24 Stop Date: 09/24/25 Status: Ordered Medication Dispense Status: Completed Quantity: 90.0 Unit: tab(s) Total Allowed Fills: 4 Fills Dispensed: 0 Start: 07-23-2023 End: 07-17-2024 take 1 tablet by mouth every hour, then take 1 tablet by mouth once daily in the morning verapamil 240 mg/12 hours oral tablet, extended release Dose : 240 mg = 1 tab(s), Oral, qAM, # 90 tab(s), 3 Refill(s), Pharmacy: [facility], 165, cm, 07/23/23 7:21:00 EST, Height, kg, 07/23/23 7:21:00 EST, Dosing Weight Start Date: 07/23/23 Stop Date: 07/17/24 Status: Ordered Start: 07-03-2022 End: 06-28-2023 take 1 tablet by mouth every hour, then take 1 tablet by mouth once daily in the morning verapamil 240 mg/12 hours oral tablet, extended release Dose : 240 mg = 1 tab(s), Oral, qAM, # 90 tab(s), 3 Refill(s), Pharmacy: [facility], 165, cm, 07/03/22 8:04:00 EST, Height, kg, 07/03/22 8:04:00 EST, Dosing Weight Start Date: 07/03/22 Stop Date: 06/28/23 Status: Ordered Start: 07-18-2021 End: 07-13-2022 take 1 tablet by mouth every hour, then take 1 tablet by mouth once daily in the morning verapamil 240 mg/12 hours oral tablet, extended release Dose : 240 mg = 1 tab(s), Oral, qAM, # 90 tab(s), 3 Refill(s), Pharmacy: [facility], 165, cm, 07/18/21 8:42:00 EST, Height, kg, 07/18/21 8:42:00 EST, Dosing Weight Start Date: 07/18/21 Stop Date: 07/13/22 Status: Ordered Completed/Discontinued Medications Medication Drug Class(es) Dates Sig (Normalized) Sig (Original) lisinopril 20 mg oral tablet (11 sources) Angiotensin Converting Enzyme Inhibitor Start: 01-07-2025 End: 03-02-2025 take 1 tablet by mouth once daily Lisinopril 20 mg tablet Discontinued 20 mg PO daily January 06, 2025 11:00pm March 02, 2025 8:45am Start: 07-23-2023 End: 07-17-2024 lisinopril 20 mg oral tablet Dose : 20 mg = 1 tab(s), Oral, qDay, # 90 tab(s), 3 Refill(s), Pharmacy: [facility], 165, cm, 07/23/23 7:21:00 EST, Height, kg, 07/23/23 7:21:00 EST, Dosing Weight Start Date: 07/23/23 Stop Date: 07/17/24 Status: Ordered Start: 07-18-2021 End: 06-28-2023 lisinopril 20 mg oral tablet Dose : 20 mg = 1 tab(s), Oral, qDay, # 90 tab(s), 3 Refill(s), Pharmacy: [facility], 165, cm, 07/03/22 8:04:00 EST, Height, kg, 07/03/22 8:04:00 EST, Dosing Weight Start Date: 07/03/22 Stop Date: 06/28/23 Status: Ordered Problems Active Problems Problem Classification Problem Date Documented Date Episodic/Chronic Asthma (5 sources) Asthma; Translations: [Unspecified asthma, uncomplicated] 01-14-2025 Chronic Diseases of white blood cells (6 sources) Leukocytosis; Translations: [Elevated white blood cell count, unspecified] 01-07-2025 Chronic Disorders of lipid metabolism (14 sources) Mixed hyperlipidemia; Translations: [Mixed hyperlipidemia] 07-17-2019 Chronic Essential hypertension (11 sources) Benign essential hypertension; Translations: [Hypertensive disorder] 07-17-2019 Chronic Headache; including migraine (14 sources) Migraine; Translations: [Migraine, unspecified, not intractable, without status migrainosus] 08-08-2014 Chronic Mood disorders (14 sources) Cyclothymia; 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] 07-17-2019 Chronic Mycoses (4 sources) Anogenital candidiasis; Translations: [Other urogenital candidiasis] Onset: 01-29-2024 01-29-2024 Episodic Nutritional deficiencies (1 source) Vitamin D deficiency; Translations: [Vitamin D deficiency, unspecified] Chronic Other inflammatory condition of skin (2 sources) Pruritus of vagina 02-02-2024 Episodic Other lower respiratory disease (14 sources) Chronic cough; Translations: [Chronic cough] Onset: 04-06-2025 01-14-2025 Episodic Other lower respiratory disease (4 sources) Wheezing; Translations: [Wheezing] 01-07-2025 Episodic Other lower respiratory disease (4 sources) Other nonspecific abnormal finding of lung field; Translations: [Ground glass opacity present on imaging of lung] 01-07-2025 Episodic Other lower respiratory disease (1 source) Shortness of breath; Translations: [Shortness of breath] Onset: 04-20-2025 Episodic Other lower respiratory disease (2 sources) Dyspnea; Translations: [Shortness of breath] 04-06-2025 Episodic Other screening for suspected conditions (not mental disorders or infectious disease) (6 sources) Viral screening status; Translations: [Abnormal electrocardiogram [ECG] [EKG]] Onset: 04-20-2025 07-23-2023 Episodic Pneumonia (except that caused by tuberculosis or sexually transmitted disease) (1 source) Pneumonia 07-22-2024 Episodic Residual codes; unclassified (1 source) Daytime hypersomnia; Translations: [Hypersomnia, unspecified] 04-06-2025 Chronic Thyroid disorders (10 sources) Hypothyroidism; Translations: [Hypothyroidism, unspecified] 07-23-2023 Chronic Thyroid disorders (5 sources) Thyroid dysfunction 08-08-2014 Episodic Unclassified (5 sources) Bipolar (qualifier value) 08-08-2014 Unclassified (10 sources) Cancer cervix screening status 08-01-2021 Unclassified (20 sources) Patient encounter status 05-30-2020 Unclassified (2 sources) Ground glass opacity 09-30-2024 Past or Other Problems Problem Classification Problem Date Documented Da te Episodic/Chronic Other lower respiratory disease (1 source) Wheezing; Translations: [Wheezing] Onset: 01-14-2025 Episodic Results Test Name Value Interpretation Reference Range Facility Pulmonary Visit Reporton Pulmonary Visit Report [facility] [address] [place] [address] OFFICE VISIT Date of Service: 04/06/25 MR#: [id number] Acct: [id number] Name: MEGAN ESPINOZA Rep #: [id number] 00 : 1970 Provider: Mary Valdivia NP Age/Sex: 55/F Location: [facility] Status: Signed Assessment and Plan Assessment and Plan (1) Shortness of breath: Status: Acute Plan: The patient is reporting shortness of breath associated with chest pain and tightness. The patient is also describing a chest heaviness to the right of her sternum. Her NIOX is elevated today which could suggest an asthma exacerbation and so I have recommended treating with oral prednisone at this time. She does have a faint expiratory wheeze on today's exam along with a diminished expiratory phase. She has completed an EKG from PCP which showed LVH per patient report. If the patient receives improvement in the symptoms with use of oral prednisone then the stress testing and ECHO can occur prior to follow-up. If there is no improvement in her symptoms with use of prednisone then I recommend the echo and stress testing be obtained to soon as possible. The patient will call and give an update on of this week. These 2 tests were previously ordered through [facility] [employer] system but the patient is self pay and [employer] is not giving them prices. (2) Chronic cough: Status: Chronic Plan: 80% improved with PPI for acid reflux and use of Trelegy. Her PFT from September 2024 and it does not suggest a flattened inspiratory limb or the presence of a fixed airway. I do believe that there was a combination of acid reflux disease and asthma that was contributing to her cough. Her NIOX is elevated today which continues to point towards asthma and so I recommend that she continue with Trelegy 200, 1 inhalation daily. The patient is self-pay and so I will provide samples in the office at this time and consider adjusting the regimen on follow-up after acute symptoms have improved. STOP BANG is elevated, further testing may be warranted for sleep disordered breathing and will be discussed on follow up. I have recommended that the patient follow-up in 4 weeks to review response to oral prednisone. Advance follow-up if there are worsening respiratory symptoms present or report to ER for severe worsening. Orders: Orders NIOX Today R05.3 - Chronic cough Stress Test Regular Today R06.02 - Shortness of breath, R94.31 - Abnormal electrocardiogram [ECG] [EKG] Echo Complete W/ Contrast Today R06.02 - Shortness of breath, R94.31 - Abnormal electrocardiogram [ECG] [EKG] Medications: New prednisone Take 2 tablets daily for 4 days then 1 tablet daily for 2 days. 20 mg PO QDAY 10 tabs 0RF J45.909 - Unspecified asthma, uncomplicated Plan Details Additional Comments: This note was generated with [employer] dictation software. It may contain incorrect words, spelling, and punctuation that were not noted in checking the note before signing. Follow Up: 4 Weeks (LMR) HPI HPI Comments Details: The patient is a 55-year-old female who presents to the office today for follow up of a chronic cough. She is ambulatory and currently on room air. Since last follow-up she has not been seen in the ER or urgent care for worsening respiratory symptoms. She has not received oral prednisone or antibiotics for her breathing. Previously noted by Dr. Meredith, the patient reported that she has been struggling with an intermittently productive cough since June 2024. She indicated that her cough initially began in June in the setting of an upper respiratory infection. She indicated that she has been diagnosed with several bouts of pneumonia over the course of the last year. She has never been formally diagnosed with asthma aside from indicating the possibility of exercise-induced bronchospasm 10 to 15 years ago. The patient is a lifelong non-smoker. She did not grow up in a smoking household. 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 She does not currently keep any animals as pets in her home environment. Prior pulmonary function studies completed through [facility] in September 2024 demonstrated no evidence of an obstructive ventilatory impairment. There was no significant bronchodilator response. Lung volumes and diffusing capacity were normal. CT chest without contrast from September 2024 apparently demonstrated tree-in-bud opacities in the right upper lobe. The patient then went on to have a repeat CT chest completed in December 2024 which demonstrated no significant pulmonary pathology. Her cough is 80% improved with use of omeprazole twice daily. She did use Trelegy for 2 weeks but lost the second inhaler and has been without inhaled therapy for the last 2 weeks. She denies cough today. She reports carol (more content not included)... Normal [facility] Pulmonary Visit Reporton Pulmonary Visit Report [facility] [address] [place] [address] OFFICE VISIT Date of Service: 03/02/25 MR#: [id number] Acct: [id number] Name: MEGAN ESPINOZA Rep #: [id number] : 1970 Provider: Mary Valdivia NP Age/Sex: 55/F Location: [facility].PMW Status: Signed Assessment and Plan Assessment and Plan (1) Chronic cough: Status: Chronic Plan: The patient presented today for the evaluation of a cough which has been present since June 2024 in the setting of an upper respiratory infection. CBC with differential does not show peripheral eosinophilia at this time. IgE, Aspergillus antibodies, ANCA and RAST profile were all negative. I am not suspecting an allergic component to her cough at this time. Her PFT is available to review from September 2024 and it does not suggest a flattened inspiratory limb or the presence of a fixed airway. I do believe that there is a combination of acid reflux disease and asthma that is contributing to her cough today. Her NIOX is elevated today which would suggest asthma and therefore I am recommending a trial of Trelegy 200, 1 inhalation daily. I am using this inhaler as a trial only as the patient is self-pay and this inhaler is available for samples in the office at this time. The use of this inhaler and potential side effects were reviewed with patient today. I have also recommended aggressive treatment for acid reflux and have prescribed omeprazole twice daily dosing with specific instructions of utilizing this on an empty stomach as well. I will not prescribe oral prednisone at this time as it could aggravate her GI symptoms and she will be receiving a high dose steroid component in the inhaler. The patient has nighttime symptoms but this could be due to sleep disordered breathing as well which will be further discussed on follow-up. If sleep apnea is present this could be contributing to the inflammatory process that is occurring in her upper airway. I have recommended that the patient follow-up in 4 to 6 weeks to review response to this regimen. Advance follow-up if there are worsening respiratory symptoms present. Orders: Orders NIOX Today R05.3 - Chronic cough Medications: New omeprazole 30 minutes before breakfast and 45 minutes before dinner 20 mg PO BID 60 tabs 3RF R05.3 - Chronic cough Plan She will return to the dentist for the jaw pain that she has been experiencing since the dental procedure. Plan Details Additional Comments: This note was generated with [employer] dictation software. It may contain incorrect words, spelling, and punctuation that were not noted in checking the note before signing. Follow Up: 4 to 6 weeks (LMR) HPI HPI Comments Details: The patient is a 55-year-old female who presents to the office today to review recent testing for a chronic cough. She is ambulatory and currently on room air. Since last follow-up she has not been seen in the ER or urgent care for worsening respiratory symptoms. She has not received oral prednisone or antibiotics for her breathing. She has however had worsening respiratory symptoms since Saturday. She reports that she has experienced fever and chills along with a productive cough with yellowish sputum. She indicates that she experiences shortness of breath with stairs at times and carrying items. She will have a wheeze on occasion but believes it is more in her throat, like a whistle. She experiences chest heaviness which is common for her. She has noticed hoarseness of her voice today. She reports that she awakens gasping to cough at night. She will suck on a lollipop at night and reports that this does improve her symptoms. She started having jaw pain after dentist appointment that the pain would go to her ear then down her throat but Advil helps this pain. She reports occasional heartburn and acid reflux along with vocal hoarseness. She denies any significant postnasal drainage or sinus drip. Previously noted by Dr. Meredith, the patient reported that she has been struggling with an intermittently productive cough since June 2024. She indicated that her cough initially began in June in the setting of an upper respiratory infection. She indicated that she has been diagnosed with several bouts of pneumonia over the course of the last year. She has never been formally diagnosed with asthma aside from indicating the possibility of exercise-induced bronchospasm 10 to 15 years ago. The patient is a lifelong non-smoker. She did not grow up in a smoking household. 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 She does not currently keep any animals as pets in her home environment. Prior pulmonary function studies completed through [facility] in September 2024 demonstrated no evidence of an obstructive ventila (more content not included)... Normal [facility] FT4on 01-26-2025 Free T4 [Mass/Vol] 0.85 ng/dL Normal 0.76-1.46 [facility] Comment on above: Performed By: #### T , FT4 #### [place] [address] LABORATORYOrdered By: SYSTEM SYSTEM on 01-26-2025 25-hydroxyvitamin D3 [Mass/Vol] 28.6 ng/mL Invalid Interpretation Code AO [facility] Comment on above: Interpretive Data: I nterpretive Values Based on Total 25([place]) Vitamin D: Deficient <20 ng/mL Insufficient 20 - <30 ng/mL Sufficient 30-100 ng/mL Free T4 [Mass/Vol] 0.85 ng/dL Normal 0.76 - 1.46 ng/dL AO ADM SS TSH Qn 0.93 m[IU]/L Normal 0.36 - 3.74 mcIU/mL AO ADM SS TSHon 01-26-2025 TSH Qn 0.93 m[IU]/L Normal 0.36-3.[address] [facility] Comment on above: Performed By: #### T , FT4 #### [place] [address] VIDHon 01-26-2025 Vit. D 25-Hydroxy 28.6 ng/mL Normal [facility] Comment on above: Result Comment: Inte rpretive Values Based on Total 25([place]) Vitamin D: Deficient <20 ng/mL Insufficient 20 - <30 ng/mL Sufficient 30-100 ng/mL Performed By: #### V IDH #### [facility] [address] [place], [place] [address] ANCAon 01-20-2025 Atypical pANCA <1:20 Normal Neg:<1:20 [facility] Comment on above: Result Comment: The atypical pANCA pattern has been observed in a significant percentage of patients with ulcerative colitis, primary sclerosing cholangitis and autoimmune hepatitis. Performed By: #### L 100.0100, L3200.1600, L3300.1200, L5500.0700, L3500.3600 #### [facility] [address] [place], [place], [phone] Cytoplasmic Ab <1:20 Normal Neg:<1:20 [facility] Comment on above: Performed By: #### L 100.0100, L3200.1600, L3300.1200, L5500.0700, L3500.3600 #### [facility] [address] [place], [address] Perinuclear Ab. <1:20 Normal Neg:<1:20 [facility] Comment on above: Result Comment: The presence of positive fluorescence exhibiting P-ANCA or C-ANCA patterns alone is not specific for the diagnosis of Jo's Granulomatosis (WG) or microscopic polyangiitis. Decisions about treatment should not be based solely on ANCA IFA results. The International ANCA Group Consensus recommends follow up testing of positive sera with both FL- 3 and MPO-ANCA enzyme immunoassays. As many as 5% serum samples are positive only by EIA. Ref. AM J Clin Pathol 1999;111:507-513. Performed By: #### L 100.0100, L3200.1600, L3300.1200, L5500.0700, L3500.3600 #### [facility] [address] [place], [address] Allergen Resp. Area 5on 08-0 ALTERNARIA TEN <0.10 Normal Class 0 [facility] Comment on above: Order Comment: Reaso n for Exam: chronic cough Performed By: #### L 100.0100, L3200.1600, L3300.1200, L5500.0700, L3500.3600 #### [facility] [address] [place], [address] JESUS, WHITE <0.10 Normal Class 0 [facility] Comment on above: Order Comment: Reaso n for Exam: chronic cough Performed By: #### L 100.0100, L3200.1600, L3300.1200, L5500.0700, L3500.3600 #### [facility] [address] [place], [address] ASPERGILLUS FUM <0.10 Normal Class 0 [facility] Comment on above: Order Comment: Reaso n for Exam: chronic cough Performed By: #### L 100.0100, L3200.1600, L3300.1200, L5500.0700, L3500.3600 #### [facility] [address] [place], [address] BERMUDA GRASS <0.10 Normal Class 0 [facility] Comment on above: Order Comment: Reaso n for Exam: chronic cough Performed By: #### L 100.0100, L3200.1600, L3300.1200, L5500.0700, L3500.3600 #### [facility] [address] [place], [address] BIRCH <0.10 Normal Class 0 [facility] Comment on above: Order Comment: Reaso n for Exam: chronic cough Performed By: #### L 100.0100, L3200.1600, L3300.1200, L5500.0700, L3500.3600 #### [facility] [address] [place], [address] BLACK WALNUT <0.10 Normal Class 0 [facility] Comment on above: Order Comment: Reaso n for Exam: chronic cough Performed By: #### L 100.0100, L3200.1600, L3300.1200, L5500.0700, L3500.3600 #### [facility] [address] [place], [place], [phone] ([phone]) CAT HAIR/DANDER <0.10 Normal Class 0 [facility] Comment on above: Order Comment: Reaso n for Exam: chronic cough Performed By: #### L 100.0100, L3200.1600, L3300.1200, L5500.0700, L3500.3600 #### [facility] [address] [place], [place], [phone] CLADOSPOR HERB <0.10 Normal Class 0 [facility] Comment on above: Order Comment: Reaso n for Exam: chronic cough Performed By: #### L 100.0100, L3200.1600, L3300.1200, L5500.0700, L3500.3600 #### [facility] [address] [place], [place], [phone] COCKROACH,AMER <0.10 Normal Class 0 [facility] Comment on above: Order Comment: Reaso n for Exam: chronic cough Performed By: #### L 100.0100, L3200.1600, L3300.1200, L5500.0700, L3500.3600 #### [facility] [address] [place], [place], [id number] COMMENT Comment Normal . [facility] Comment on above: Order Comment: Reaso n for Exam: chronic cough Result Comment: Carrillo sanchez of Specific IgE Class Description of Class ----- < 0.10 0 Negative 0.10 - 0.31 0/I Equivocal/Low 0.32 - 0.55 I Low 0.56 - 1.40 II Moderate 1.41 - 3.90 III High 3.91 - 19.00 IV Very High 19.01 - 100.00 V Very High >100.00 Very High Performed By: #### L 100.0100, L3200.1600, L3300.1200, L5500.0700, L3500.3600 #### [facility] [address] [place], [address] COTTONWOOD <0.10 Normal Class 0 [facility] Comment on above: Order Comment: Reaso n for Exam: chronic cough Performed By: #### L 100.0100, L3200.1600, L3300.1200, L5500.0700, L3500.3600 #### [facility] [address] [place], [place], [facility] D FARINAE MITE <0.10 Normal Class 0 [facility] Comment on above: Order Comment: Reaso n for Exam: chronic cough Performed By: #### L 100.0100, L3200.1600, L3300.1200, L5500.0700, L3500.3600 #### [facility] [address] [place], [place], [facility] D PTERONYSSINUS <0.10 Normal Class 0 [facility] Comment on above: Order Comment: Reaso n for Exam: chronic cough Performed By: #### L 100.0100, L3200.1600, L3300.1200, L5500.0700, L3500.3600 #### [facility] [address] [place], [place], [facility] DOG EPITHELIA <0.10 Normal Class 0 [facility] Comment on above: Order Comment: Reaso n for Exam: chronic cough Performed By: #### L 100.0100, L3200.1600, L3300.1200, L5500.0700, L3500.3600 #### [facility] [address] [place], [place], [facility] ELM,AMER WHITE <0.10 Normal Class 0 [facility] Comment on above: Order Comment: Reaso n for Exam: chronic cough Performed By: #### L 100.0100, L3200.1600, L3300.1200, L5500.0700, L3500.3600 #### [facility] [address] [place], [address] IMMUNOGLOB E 5 IU/mL Low 6-495 [facility] Comment on above: Order Comment: Reaso n for Exam: chronic cough Performed By: #### L 100.0100, L3200.1600, L3300.1200, L5500.0700, L3500.3600 #### [facility] [address] [place], [address] MAPLE/BOX ELDER <0.10 Normal Class 0 [facility] Comment on above: Order Comment: Reaso n for Exam: chronic cough Performed By: #### L 100.0100, L3200.1600, L3300.1200, L5500.0700, L3500.3600 #### [facility] [address] [place], [address] M[place] <0.10 Normal Class 0 [facility] Comment on above: Order Comment: Reaso n for Exam: chronic cough Performed By: #### L 100.0100, L3200.1600, L3300.1200, L5500.0700, L3500.3600 #### [facility] [address] [place], [address] Mouse Urine <0.10 Normal Class 0 [facility] Comment on above: Order Comment: Reaso n for Exam: chronic cough Performed By: #### L 100.0100, L3200.1600, L3300.1200, L5500.0700, L3500.3600 #### [facility] [address] [place], [address] MULBERRY,WHITE <0.10 Normal Class 0 [facility] Comment on above: Order Comment: Reaso n for Exam: chronic cough Performed By: #### L 100.0100, L3200.1600, L3300.1200, L5500.0700, L3500.3600 #### [facility] [address] [place], [address] OAK, WHITE <0.10 Normal Class 0 [facility] Comment on above: Order Comment: Reaso n for Exam: chronic cough Performed By: #### L 100.0100, L3200.1600, L3300.1200, L5500.0700, L3500.3600 #### [facility] [address] [place], [place], [facility] PECAN <0.10 Normal Class 0 [facility] Comment on above: Order Comment: Reaso n for Exam: chronic cough Performed By: #### L 100.0100, L3200.1600, L3300.1200, L5500.0700, L3500.3600 #### [facility] [address] [place], [place], [facility] PEN NOTATUM <0.10 Normal Class 0 [facility] Comment on above: Order Comment: Reaso n for Exam: chronic cough Performed By: #### L 100.0100, L3200.1600, L3300.1200, L5500.0700, L3500.3600 #### [facility] [address] [place], [address] PIGWEED, ROUGH <0.10 Normal Class 0 [facility] Comment on above: Order Comment: Reaso n for Exam: chronic cough Performed By: #### L 100.0100, L3200.1600, L3300.1200, L5500.0700, L3500.3600 #### [facility] [address] [place], [place], [facility] RAGWEED SH/COM <0.10 Normal Class 0 [facility] Comment on above: Order Comment: Reaso n for Exam: chronic cough Performed By: #### L 100.0100, L3200.1600, L3300.1200, L5500.0700, L3500.3600 #### [facility] [address] [place], [address] AUSTRALIAN THISTLE <0.10 Normal Class 0 [facility] Comment on above: Order Comment: Reaso n for Exam: chronic cough Performed By: #### L 100.0100, L3200.1600, L3300.1200, L5500.0700, L3500.3600 #### [facility] [address] [place], [place], [phone] SHEEP SORREL <0.10 Normal Class 0 [facility] Comment on above: Order Comment: Reaso n for Exam: chronic cough Result Comment: Perf ormed at: [facility] [id number] Wood Milling Machine Tender: Priscilla Butler MD, Phone: [phone] Performed By: #### L 100.0100, L3200.1600, L3300.1200, L5500.0700, L3500.3600 #### [facility] [address] [place], [place], [id number] SYCAMORE, AMER <0.10 Normal Class 0 [facility] Comment on above: Order Comment: Reaso n for Exam: chronic cough Performed By: #### L 100.0100, L3200.1600, L3300.1200, L5500.0700, L3500.3600 #### [facility] [address] [place], [place], [id number] WU GRASS <0.10 Normal Class 0 [facility] Comment on above: Order Comment: Reaso n for Exam: chronic cough Performed By: #### L 100.0100, L3200.1600, L3300.1200, L5500.0700, L3500.3600 #### [facility] [address] [place], [address] Aspergillus Antibodieson Asp. flavus Negative Normal Neg:<1:1 [facility] Comment on above: Performed By: #### L 100.0100, L3200.1600, L3300.1200, L5500.0700, L3500.3600 #### [facility] [address] [place], [address] Asp. fumigatus Negative Normal Neg:<1:1 [facility] Comment on above: Performed By: #### L 100.0100, L3200.1600, L3300.1200, L5500.0700, L3500.3600 #### [facility] [address] [place], [address] Asp. niger Negative Normal Neg:<1:1 [facility] Comment on above: Performed By: #### L 100.0100, L3200.1600, L3300.1200, L5500.0700, L3500.3600 #### [facility] [address] [place], [address] Immunoglobulin Reinaldo 5 IMMUNOGLOB E QN 5 IU/mL Low 6-495 [facility] Comment on above: Result Comment: Perf ormed at: - [facility] [id number] [employer] Milling Machine Tender: Russ Verma PhD, Phone: [phone] Performed at: [facility] [id number] [employer]illing Machine Tender: Priscilla Butler MD, Phone: [phone] Performed By: #### L 100.0100, L3200.1600, L3300.1200, L5500.0700, L3500.3600 #### [facility] [address] [place], [address] Absolute lymphocyte countOrd ered By: Akin Meredith on 01-14-2025 Lymphocytes Auto (Unsp spec) [#/Vol] 2.84 10*3/uL 0.83-4.51 [facility] Absolute neutrophil countOrd ered By: Akin Meredith on 01-14-2025 Neutrophils (Bld) [#/Vol] 5.4 10*3/uL 2.0-7.7 [facility] Automated lymphocyte count a s percentage of total leukocytesOrdered By: Akin Meredith on 01-14-2025 Lymphocytes/100 WBC Auto (Unsp spec) 31.3 % 19-41 [facility] Basophil percentageOrdered B y: Akin Meredith on 01-14-2025 Basophils/100 WBC (Bld) 0.6 % 0-[address] [facility] CBC W/Diff, Automatedon 12-17-2024 Absolute Lymph 2.84 X10 3/uL Normal 0.83-4.51 [facility] Comment on above: Performed By: #### L 100.0100, L3200.1600, L3300.1200, L5500.0700, L3500.3600 #### [facility] [address] [place], [address] Absolute Neut 5.4 X10 3/uL Normal 2.0-7.7 [facility] Comment on above: Performed By: #### L 100.0100, L3200.1600, L3300.1200, L5500.0700, L3500.3600 #### [facility] [address] [place], [address] Basophils/100 WBC (Bld) 0.6 % Normal 0-[address] [facility] Comment on above: Performed By: #### L 100.0100, L3200.1600, L3300.1200, L5500.0700, L3500.3600 #### [facility] [address] [place], [address] Eosinophils/100 WBC (Bld) 1.2 % Normal 0-5 [facility] Comment on above: Performed By: #### L 100.0100, L3200.1600, L3300.1200, L5500.0700, L3500.3600 #### [facility] [address] [place], [address] Erythrocyte distribution width (RBC) [Ratio] 13.2 % Normal 11.6-14.6 [facility] Comment on above: Performed By: #### L 100.0100, L3200.1600, L3300.1200, L5500.0700, L3500.3600 #### [facility] [address] [place], [address] Hematocrit (Bld) [Volume fraction] 44.6 % Normal 37-47 [facility] Comment on above: Performed By: #### L 100.0100, L3200.1600, L3300.1200, L5500.0700, L3500.3600 #### [facility] [address] [place], [address] Hemoglobin (Bld) [Mass/Vol] 14.6 g/dL Normal 12.0-15. 0 [facility] Comment on above: Performed By: #### L 100.0100, L3200.1600, L3300.1200, L5500.0700, L3500.3600 #### [facility] [address] [place], [address] IG% 0.400 Normal 0.0-0.9 [facility] Comment on above: Result Comment: IG% - Immature Granulocytes (promyelocytes, myelocytes and metamyelocytes) > 1% indicates that a LEFT SHIFT is Present. Performed By: #### L 100.0100, L3200.1600, L3300.1200, L5500.0700, L3500.3600 #### [facility] [address] [place], [address] Lymphocytes/100 WBC (Bld) 31.3 % Normal 19-41 [facility] Comment on above: Performed By: #### L 100.0100, L3200.1600, L3300.1200, L5500.0700, L3500.3600 #### [facility] [address] [place], [address] MCH (RBC) [Entitic mass] 29.3 pg Normal 27.0-32.0 [facility] Comment on above: Performed By: #### L 100.0100, L3200.1600, L3300.1200, L5500.0700, L3500.3600 #### [facility] [address] [place], [address] MCHC (RBC) [Mass/Vol] 32.7 g/dL Normal 32-36 [facility] Comment on above: Performed By: #### L 100.0100, L3200.1600, L3300.1200, L5500.0700, L3500.3600 #### [facility] [address] [place], [address] MCV (RBC) [Entitic vol] 89.4 fL Normal 81-[address] [facility] Comment on above: Performed By: #### L 100.0100, L3200.1600, L3300.1200, L5500.0700, L3500.3600 #### [facility] [address] [place], [address] Monocytes/100 WBC (Bld) 7.6 % Normal 0-10 [facility] Comment on above: Performed By: #### L 100.0100, L3200.1600, L3300.1200, L5500.0700, L3500.3600 #### [facility] [address] [place], [address] Neutrophils/100 WBC (Bld) 58.9 % Normal 47-70 [facility] Comment on above: Performed By: #### L 100.0100, L3200.1600, L3300.1200, L5500.0700, L3500.3600 #### [facility] [address] [place], [address] Nucleated RBC (Bld) [#/Vol] 0 10*3/uL Normal 0-5 [facility] Comment on above: Performed By: #### L 100.0100, L3200.1600, L3300.1200, L5500.0700, L3500.3600 #### [facility] [address] [place], [address] Platelet mean volume (Bld) [Entitic vol] 9.3 fL Normal 6.2-12.0 [facility] Comment on above: Performed By: #### L 100.0100, L3200.1600, L3300.1200, L5500.0700, L3500.3600 #### [facility] [address] [place], [address] Platelets (Bld) [#/Vol] 370 10*3/uL Normal 150-450 [facility] Comment on above: Performed By: #### L 100.0100, L3200.1600, L3300.1200, L5500.0700, L3500.3600 #### [facility] [address] [place], [address] RBC (Bld) [#/Vol] 4.99 10*6/uL Normal 4.2-5.4 [facility] Comment on above: Performed By: #### L 100.0100, L3200.1600, L3300.1200, L5500.0700, L3500.3600 #### [facility] [address] [place], [address] RDW SD 43.5 fl Normal 35.1-43.9 [facility] Comment on above: Performed By: #### L 100.0100, L3200.1600, L3300.1200, L5500.0700, L3500.3600 #### [facility] [address] [place], [address] WBC (Bld) [#/Vol] 9.1 10*3/uL Normal 4.4-11.0 [facility] Comment on above: Performed By: #### L 100.0100, L3200.1600, L3300.1200, L5500.0700, L3500.3600 #### [facility] [address] [place], [address] Eosinophil percentageOrdered By: Akin Meredith on 01-14-2025 Eosinophils/100 WBC (Bld) 1.2 % 0-5 [facility] Erythrocyte distribution wid th ratioOrdered By: Akin Meredith on 01-14-2025 Erythrocyte distribution width (RBC) [Ratio] 13.2 % 11.6-14.6 [facility] Erythrocyte distribution wid th standard deviationOrdered By: Akin Meredith on 01-14-2025 Erythrocyte distribution width (RBC) [Ratio] 43.5 fl 35.1-43.9 [facility] Hematocrit Auto (Bld) [Volum e fraction]Ordered By: Akin Meredith on 01-14-2025 Hematocrit (Bld) [Volume fraction] 44.6 % 37-47 [facility] Hemoglobin measurementOrdere d By: Akin Meredith on 01-14-2025 Hemoglobin (Bld) [Mass/Vol] 14.6 g/dL 12.0-15. 0 [facility] IgEOrdered By: Akin rodriguez n 01-14-2025 IgE 5 IU/mL Low 6-495 [facility] Comment on above: Performed at: [address] [id number] Director: Russ Verma PhD, Phone: [phone] at: [facility] [id number] Director: Priscilla Butler MD, Phone: [phone] Immature granulocytes/100 WB C Auto (Bld)Ordered By: Akin Meredith on 01-14-2025 Immature granulocytes/100 WBC (Bld) 0.400 % 0.0-0.9 [facility] Comment on above: IG% - Immature Granu locytes (promyelocytes, myelocytes and metamyelocytes) > 1% indicates that a LEFT SHIFT is Present. MCV (mean corpuscular volume ) determinationOrdered By: Akin Meredith on 01-14-2025 MCV (RBC) [Entitic vol] 89.4 fL 81-[address] [facility] Mean corpuscular hemoglobin (MCH) determinationOrdered By: Akin Meredith 01-14-2025 MCH (RBC) [Entitic mass] 29.3 pg 27.0-32.0 [facility] Mean corpuscular hemoglobin concentration (MCHC) determinationOrdered By: Akin Meredith 01-14-2025 MCHC (RBC) [Mass/Vol] 32.7 g/dL 32-36 [facility] Mean platelet volume determi nationOrdered By: Akin Meredith on 01-14-2025 Platelet mean volume (Bld) [Entitic vol] 9.3 fL 6.2-12.0 [facility] Monocyte percentageOrdered B y: Akin Meredith on 01-14-2025 Monocytes/100 WBC (Bld) 7.6 % 0-[address] [facility] Neutrophil percentageOrdered By: Akin Meredith on 01-14-2025 Neutrophils/100 WBC (Bld) 58.9 % 47-70 [facility] No Panel InformationOrdered By: Akin Meredith on 01-14-2025 RAST Comment Comment . [facility] Comment on above: Levels of Specific I gE Class Description of Class ----- < 0.10 0 Negative 0.10 - 0.31 0/I Equivocal/Low 0.32 - 0.55 I Low 0.56 - 1.40 II Moderate 1.41 - 3.90 III High 3.91 - 19.00 IV Very High 19.01 - 100.00 V Very High >100.00 Very High Nucleated red blood cell per centageOrdered By: Akin Meredith on 01-14-2025 Nucleated RBC/100 WBC (Bld) [Ratio] 0 % 0-5 [facility] Platelet countOrdered By: Monsalve on 01-14-2025 Platelets (Bld) [#/Vol] 370 10*3/uL 150-450 [facility] Pulmonary Visit Reporton Pulmonary Visit Report [facility] [address] [place] [address]. [address] [place] [address] OFFICE VISIT Date of Service: 01/14/25 MR#: [id number] Acct: [id number] Name: MEGAN ESPINOZA Rep #: [id number] : 1970 Provider: Dr. Akin Meredith DO Age/Sex: 55/F Location: [facility].PMW Status: Signed Assessment and Plan Assessment and Plan (1) Chronic cough: Status: Chronic Plan: The patient presented today for the evaluation of a cough which has been present since June 2024 in the setting of an upper respiratory infection. Prior pulmonary function studies were unremarkable. Recent CT imaging of the chest completed at the beginning of December 2024 was also unremarkable. She has a normal exhaled nitric oxide level at today's office visit. At the present time, the patient is currently on an MORGAN inhibitor, which I have recommended he discontinued. I do suspect that the patient may have an underlying component of vocal cord dysfunction, given her symptoms reported at today's visit. Will plan to obtain additional lab work including CBC with differential to evaluate for peripheral eosinophilia, IgE, Aspergillus antibodies, ANCA and RAST profile. The patient has never responded symptomatically to the use of bronchodilators, which certainly suggest an alternative diagnosis to asthma. If the patient continues to have a cough and asthma-like symptoms after discontinuation of MORGAN inhibitor, recommend referral to speech therapy for possible swallow evaluation and laryngeal control therapy, given suspicion for vocal cord dysfunction. Result: Oral exhaled NO (ppb): 18 Normal: 5-20 ppb (Adult) High Normal/Increased: 20-35 ppb (Adult). Moderately raised exhaled nitric oxide may indicate underlying inflammation, but notes that cold and influenza can raise exhaled nitric oxide in some patients have higher baseline levels than others. High: >35 ppb (Adult). Indicative of ongoing eosinophilic inflammation. Symptomatic patient likely to respond to steroids. Possible causes include: Poor compliance, recent allergen exposure, steroid dose inadequate, and steroid resistance. Orders: Orders NIOX 01/14/25 R06.2 - Wheezing Immunoglobulin E 01/14/25 J45.909 - Unspecified asthma, uncomplicated, R05.3 - Chronic cough Aspergillus Antibodies 01/14/25 J45.909 - Unspecified asthma, uncomplicated, R05.3 - Chronic cough CBC W/Diff, Automated 01/14/25 J45.909 - Unspecified asthma, uncomplicated, R05.3 - Chronic cough ANCA 01/14/25 J45.909 - Unspecified asthma, uncomplicated, R05.3 - Chronic cough Allergen Resp. Area 5 01/14/25 J45.909 - Unspecified asthma, uncomplicated, R05.3 - Chronic cough PFT Complete - DLCO, Spirometry b/a bronchodilators, lung volumes 01/14/25 R05.3 - Chronic cough HPI HPI Comments Details: The patient is a 55-year-old female who presents to the clinic today in referral for the evaluation of a chronic cough. The patient reported that she has been struggling with an intermittently productive cough since June 2024. She indicated that her cough initially began in June in the setting of an upper respiratory infection. She indicated that she has been diagnosed with several bouts of pneumonia over the course of the last year. She has never been formally diagnosed with asthma aside from indicating the possibility of exercise-induced bronchospasm 10 to 15 years ago. The patient is a lifelong non-smoker. She did not grow up in a smoking household. 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 She does not currently keep any animals as pets in her home environment. She denies any fevers, chills or night sweats. She does report occasional dyspnea along with intermittent chest tightness and wheezing. She often times experiences her cough when she is eating and describes a sensation that things are getting stuck. The patient has never been formally diagnosed with anxiety, but does report a tightness in her throat during these episodes along with the sensation that she is breathing through a straw. She has been prescribed albuterol as needed in the past, without any significant symptom relief. The patient is currently prescribed an MORGAN inhibitor for management of her hypertension. She does report occasional heartburn and reflux along with vocal hoarseness. She denies any significant sinus drainage or postnasal drip. Prior pulmonary function studies completed through [facility] in September 2024 demonstrated no evidence of an obstructive ventilatory impairment. There was no significant bronchodilator response. Lung volumes and diffusing capacity were normal. CT chest without contrast from September 2024 apparently demonstrated tree-in-bud opacities in the right upper lobe. The patient then went on to have a repeat CT chest completed in December 2024 which demonstrate (more content not included)... Normal [facility] RBC Auto (Bld) [#/Vol]Ordere d By: Akin Meredith on 01-14-2025 RBC (Bld) [#/Vol] 4.99 10*6/uL 4.2-5.4 [facility] Serum [place] sycamore IgE antibody assay (units/volume)Ordered By: Akin Meredith on 01-14-2025 [place] IgE Qn (S) <0.10 kU/L Class 0 [facility] Serum Aspergillus flavus ant ibody detection by immunodiffusionOrdered By: Akin Meredith on 01-14-2025 A. flavus Ab Immune diff Ql (S) Negative Neg:<1:1 [facility] Serum Aspergillus fumigatus IgE antibody assay (units/volume)Ordered By: Akin Meredith on 01-14-2025 A. fumigatus IgE Qn (S) <0.10 kU/L Class 0 [facility] Serum Aspergillus fumigatus antibody detection by immunodiffusionOrdered By: Akin Meredith on 01-14-2025 A. fumigatus Ab Immune diff Ql (S) Negative Neg:<1:1 [facility] Serum Aspergillus niger anti body detection by immunodiffusionOrdered By: Akin Meredith on 01-14-2025 A. niger Ab Immune diff Ql (S) Negative Neg:<1:1 [facility] Serum Bermuda grass IgE anti body assay (units/volume)Ordered By: Akin Meredith on 01-14-2025 Berm[place] grass IgE Qn (S) <0.10 kU/L Class 0 [facility] Serum Cladosporium herbarum IgE antibody assay (units/volume)Ordered By: Akin Meredith on 01-14-2025 C. herbarum IgE Qn (S) <0.10 kU/L Class 0 [facility] Serum Dermatophagoides ptero nyssinus specific IgE antibody assay (units/volume)Ordered By: Akin Meredith on 01-14-2025 house dust mite IgE Qn (S) <0.10 kU/L Class 0 [facility] Serum Fraxinus americana IgE antibody assay (units/volume)Ordered By: Akin Meredith on 01-14-2025 White Jesus IgE Qn (S) <0.10 kU/L Class 0 [facility] Serum Rumex acetosella IgE a ntibody assay (units/volume)Ordered By: Akin Meredith on 01-14-2025 [place] IgE Qn (S) <0.10 kU/L Class 0 [facility] Comment on above: Performed at: [address] [id number] Director: Priscilla Butler MD, Phone: [phone] Serum black walnut IgE antib lj assay (units/volume)Ordered By: Akin Meredith on 01-14-2025 [place] IgE Qn (S) <0.10 kU/L Class [address] [facility] Serum classic neutrophil cyt oplasmic antibody assay (units/volume)Ordered By: Akin Meredith on 01-14-2025 Neutrophil cytoplasmic Ab.classic Qn (S) <1:20 titer Neg:<1:20 [facility] Serum cottonwood IgE antibod y assay (units/volume)Ordered By: Akin Meredith on 01-14-2025 [place] IgE Qn (S) <0.10 kU/L Class 0 [facility] Serum dog epithelium IgE ant ibody assay (units/volume)Ordered By: Akin Meredith on 01-14-2025 Dog epithelium IgE Qn (S) <0.10 kU/L Class 0 [facility] Serum perinuclear neutrophil cytoplasmic antibody titer by immunofluorescenceOrdered By: Akin Meredith on 01-14-2025 Neutrophil cytoplasmic Ab.perinuclear IF (S) [Titer] <1:20 titer Neg:<1:20 [facility] Comment on above: The presence of posi tive fluorescence exhibiting P-ANCA orC-ANCA patterns alone is not specific for the diagnosis ofWegener's Granulomatosis (WG) or microscopic polyangiitis.Decisions about treatment should not be based solely onANCA IFA results. The International ANCA Group Consensusrecommends follow up testing of positive sera with both FL-3 and MPO-ANCA enzyme immunoassays. As many as 5% serumsamples are positive only by EIA. Ref. AM J Clin [id number];111:507-513. Serum wu IgE antibody a ssay (units/volume)Ordered By: Akin Meredith on 01-14-2025 Wu IgE Qn (S) <0.10 kU/L Class 0 [facility] Serum white elm IgE antibody assay (units/volume)Ordered By: Akin Meredith on 01-14-2025 White [place] IgE Qn (S) <0.10 kU/L Class 0 [facility] Serum white mulberry IgE ant ibody assay (units/volume)Ordered By: Akin Meredith on 01-14-2025 White mulberry IgE Qn (S) <0.10 kU/L Class 0 [facility] White blood cell (WBC) count Ordered By: Akin Meredith on 01-14-2025 WBC (Bld) [#/Vol] 9.1 10*3/uL 4.4-11.0 [facility] CT THORAX W/O CONTRASTon CT THORAX W/O CONTRAST ORIGINAL EXAMINATION: CT CHEST WITHOUT CONTRAST09/28/2024 11:15 am TECHNIQUE: CT of the chest was performed without the administration of intravenous contrast. Multiplanar reformatted images are provided for review. Automated exposure control, iterative reconstruction, and/or weight based adjustment of the mA/kV was utilized to reduce the radiation dose to as low as reasonably achievable. HISTORY: ORDERING SYSTEM PROVIDED HISTORY: Reason for Exam: cough, wheezing, frequent respiratory infections COMPARISON: Chest x-ray 07/23/2024 FINDINGS: LUNGS/PLEURA: The trachea and mainstem bronchi are patent. There are few small clusters of tree-in-bud type nodules within the posterior right upper lobe. 4 mm right middle lobe ground-glass nodule (series 4, image 38). There are also a couple small ground-glass opacities within the posterior right upper lobe. Couple small ground-glass opacities within the right lower lobe (series 4, image 41). No consolidation, pleural effusion, or pneumothorax. Scattered pleural and parenchymal scarring, for example in the lateral right lower lobe where there is a bandlike density. HEART AND VESSELS: The heart is normal in size without pericardial effusion. Mild calcified atherosclerotic disease of the aorta and branching vessels. No significant coronary artery calcifications. LYMPH: No mediastinal, axillary, or supraclavicular adenopathy on this non-contrast study. SOFT TISSUE/BONES: No acute soft tissue process. No thyroid nodule. No acute fracture or aggressive osseous lesion. Moderate multilevel degenerative changes of the spine. UPPER ABDOMEN: Cholelithiasis, otherwise unremarkable. Decreased attenuation within the liver is consistent with hepatic steatosis. IMPRESSION: Few small clusters of tree-in-bud type nodules within the posterior right upper lobe and couple scattered small ground-glass opacities within the right lung are likely infectious/inflammato ry in etiology. Recommend CT follow-up in 8-12 weeks to ensure resolution. Cholelithiasis. Hepatic steatosis. I have personally reviewed the images of this examination and agree with the resident's findings and interpretation. Interpreted by: Adebayo Howard Preliminary Report By: Sarmad Garcia Electronically signed By Adebayo Howard Dictated Date: 09/28/2024 11:27:58 AM Prelim Date: 09/28/2024 11:56:42 AM Sign Date: 09/28/2024 11:56:42 AM Ordering Provider: JOEL Queen [facility] .Auto Diffon 09-22-2024 Basophil, Absolute 0.0 10 3/mcL Normal 0.0-0.3 [facility] Comment on above: Performed By: #### V IDH, ANEU, VALPR, TSH, ADIFF, GFR, CMP, CBC #### [address] [address] Basophils/100 WBC (Bld) 0.2 % Normal 0.0-2.5 [facility] Comment on above: Performed By: #### V IDH, ANEU, VALPR, TSH, ADIFF, GFR, CMP, CBC #### [address] [address] Eosinophil, Absolute 0.1 10 3/mcL Normal 0.0-0.7 [facility] Comment on above: Performed By: #### V IDH, ANEU, VALPR, TSH, ADIFF, GFR, CMP, CBC #### [address] [address] Eosinophils/100 WBC (Bld) 0.5 % Normal 0.0-6.[address] [facility] Comment on above: Performed By: #### V IDH, ANEU, VALPR, TSH, ADIFF, GFR, CMP, CBC #### [address] [address] Lymphocyte, Absolute 2.9 10 3/mcL Normal 0.9-4.3 [facility] Comment on above: Performed By: #### V IDH, ANEU, VALPR, TSH, ADIFF, GFR, CMP, CBC #### [address] [address] Lymphocytes/100 WBC (Bld) 18.9 % Low 20.0-40.[address] [facility] Comment on above: Performed By: #### V IDH, ANEU, VALPR, TSH, ADIFF, GFR, CMP, CBC #### [address] [address] Monocyte, Absolute 1.0 10 3/mcL Normal 0.1-1.4 [facility] Comment on above: Performed By: #### V IDH, ANEU, VALPR, TSH, ADIFF, GFR, CMP, CBC #### [address] [address] Monocytes/100 WBC (Bld) 6.4 % Normal 2.0-13.0 [facility] Comment on above: Performed By: #### V IDH, ANEU, VALPR, TSH, ADIFF, GFR, CMP, CBC #### [address] [address] Neutrophils/100 WBC (Bld) 74.0 % Normal 50.0-75.[address] [facility] Comment on above: Performed By: #### V IDH, ANEU, VALPR, TSH, ADIFF, GFR, CMP, CBC #### [address] [address] .GFRon 09-22-2024 Estimated Glomerular Filtration Rate 107 ml/min/1.73sqm Normal [facility] Comment on above: Result Comment: Stages of Chronic Kidney Disease (CKD) Stage Description eGFR(ml/min/1.73 sq.m.) CKD 1 Normal kidney function or >=90 normal kindney function with possible kidney damage (ex. Proteinuria) CKD 2 Kidney damage with mild loss 60-89 of kidney function CKD 3a Mild to moderate loss of kidney 45-59 function CKD 3b Moderate to severe loss of 30-44 of kindey function CKD 4 Severe loss of kidney function 15-29 CKD 5 Kidney failure <15 Note: (go live 2024) the eGFR calculation was updated to the 2020 CKD-EPI creatinine equation without a race factor to calculate the eGFR results. Performed By: #### V IDH #### [address] [address] .NEUABSon 09-22-2024 Neutrophil, Absolute 11.3 10 3/mcL High 2.3-8.1 [facility] Comment on above: Performed By: #### V IDH, ANEU, VALPR, TSH, ADIFF, GFR, CMP, CBC #### [address] [address] CBCon 09-22-2024 Erythrocyte distribution width (RBC) [Ratio] 14.4 % Normal 11.5-15.[address] [facility] Comment on above: Performed By: #### V IDH, ANEU, VALPR, TSH, ADIFF, GFR, CMP, CBC #### [address] [address] Hematocrit (Bld) [Volume fraction] 44.6 % Normal 34.0-46.[address] [facility] Comment on above: Performed By: #### V IDH, ANEU, VALPR, TSH, ADIFF, GFR, CMP, CBC #### [place] [address] Hgb 14.8 G/dL Normal 12.0-16.[address] [facility] Comment on above: Performed By: #### V IDH, ANEU, VALPR, TSH, ADIFF, GFR, CMP, CBC #### [address] [address] MCH (RBC) [Entitic mass] 29.3 pg Normal 27.0-33.[address] [facility] Comment on above: Performed By: #### V IDH, ANEU, VALPR, TSH, ADIFF, GFR, CMP, CBC #### [address] [address] MCHC 33.2 G/dL Normal 32.0-36.[address] [facility] Comment on above: Performed By: #### V IDH, ANEU, VALPR, TSH, ADIFF, GFR, CMP, CBC #### [address] [address] MCV (RBC) [Entitic vol] 88.2 fL Normal 80.0-99.0 [facility] Comment on above: Performed By: #### V IDH, ANEU, VALPR, TSH, ADIFF, GFR, CMP, CBC #### [address] [address] Platelet 387 10 3/mcL Normal 150-[address] [facility] Comment on above: Performed By: #### V IDH, ANEU, VALPR, TSH, ADIFF, GFR, CMP, CBC #### [address] [address] Platelet mean volume (Bld) [Entitic vol] 7.2 fL Normal 6.6-10.[address] [facility] Comment on above: Performed By: #### V IDH, ANEU, VALPR, TSH, ADIFF, GFR, CMP, CBC #### [address] [address] RBC 5.06 10 6/mcL Normal 4.10-5.[address] [facility] Comment on above: Performed By: #### V IDH, ANEU, VALPR, TSH, ADIFF, GFR, CMP, CBC #### [address] [address] WBC 15.2 10 3/mcL High 4.5-10.[address] [facility] Comment on above: Performed By: #### V IDH, ANEU, VALPR, TSH, ADIFF, GFR, CMP, CBC #### [address] [address] CMPon 09-22-2024 Albumin Level 3.7 G/dL Normal 3.5-5.[address] [facility] Comment on above: Performed By: #### V IDH, ANEU, VALPR, TSH, ADIFF, GFR, CMP, CBC #### [address] [address] Albumin/Globulin [Mass ratio] 1.0 {ratio} Low 1.1-2.[address] [facility] Comment on above: Performed By: #### V IDH, ANEU, VALPR, TSH, ADIFF, GFR, CMP, CBC #### [address] [address] ALP [Catalytic activity/Vol] 95 U/L Normal 40-[address] [facility] Comment on above: Performed By: #### V IDH, ANEU, VALPR, TSH, ADIFF, GFR, CMP, CBC #### [address] [address] ALT [Catalytic activity/Vol] 58 U/L Normal 14-[address] [facility] Comment on above: Performed By: #### V IDH, ANEU, VALPR, TSH, ADIFF, GFR, CMP, CBC #### [address] [address] AST [Catalytic activity/Vol] 21 U/L Normal 10-[address] [facility] Comment on above: Performed By: #### V IDH, ANEU, VALPR, TSH, ADIFF, GFR, CMP, CBC #### [address] [address] Bili Total 0.4 mg/dL Normal 0.2-1.[address] [facility] Comment on above: Result Comment: Use of this assay is not recommended for patients undergoing treatment with eltrombopag due to the potential for falsely elevated results. Performed By: #### V IDH, ANEU, VALPR, TSH, ADIFF, GFR, CMP, CBC #### [address] [address] BUN/Creatinine Ratio 18 ratio Normal 7-27 [facility] Comment on above: Performed By: #### V IDH, ANEU, VALPR, TSH, ADIFF, GFR, CMP, CBC #### [address] [address] Calcium [Mass/Vol] 9.2 mg/dL Normal 8.4-10.2 [facility] Comment on above: Performed By: #### V IDH, ANEU, VALPR, TSH, ADIFF, GFR, CMP, CBC #### [address] [address] Chloride [Moles/Vol] 103 mmol/L Normal 98-107 [facility] Comment on above: Performed By: #### V IDH, ANEU, VALPR, TSH, ADIFF, GFR, CMP, CBC #### [address] [address] CO2 [Moles/Vol] 30 mmol/L High 22-[address] [facility] Comment on above: Performed By: #### V IDH, ANEU, VALPR, TSH, ADIFF, GFR, CMP, CBC #### [address] [address] Creatinine [Mass/Vol] 0.60 mg/dL Normal 0.55-1.02 [facility] Comment on above: Result Comment: Test ing performed on [employer] Dimension EXL analyzer using a modified kinetic Sadi technique. Performed By: #### V IDH, ANEU, VALPR, TSH, ADIFF, GFR, CMP, CBC #### [place] [address] Electrolyte Balance 9.0 mEq/L Normal 4.0-15.0 [facility] Comment on above: Performed By: #### V IDH, ANEU, VALPR, TSH, ADIFF, GFR, CMP, CBC #### [address] [address] Globulin 3.8 G/dL Normal 1.5-3.[address] [facility] Comment on above: Performed By: #### V IDH, ANEU, VALPR, TSH, ADIFF, GFR, CMP, CBC #### [address] [address] Glucose [Mass/Vol] 104 mg/dL Normal 70-105 [facility] Comment on above: Performed By: #### V IDH, ANEU, VALPR, TSH, ADIFF, GFR, CMP, CBC #### [address] [address] Potassium [Moles/Vol] 3.5 mmol/L Normal 3.5-5.1 [facility] Comment on above: Performed By: #### V IDH, ANEU, VALPR, TSH, ADIFF, GFR, CMP, CBC #### [address] [address] Sodium [Moles/Vol] 142 mmol/L Normal 136-145 [facility] Comment on above: Performed By: #### V IDH, ANEU, VALPR, TSH, ADIFF, GFR, CMP, CBC #### [place] [address] Total Protein 7.5 G/dL Normal 6.4-8.[address] [facility] Comment on above: Performed By: #### V IDH, ANEU, VALPR, TSH, ADIFF, GFR, CMP, CBC #### [place] [address] Urea nitrogen [Mass/Vol] 11 mg/dL Normal 7-[address] [facility] Comment on above: Performed By: #### V IDH, ANEU, VALPR, TSH, ADIFF, GFR, CMP, CBC #### [place] [address] TSHon 09-22-2024 TSH Qn 0.21 m[IU]/L Low 0.36-3.[address] [facility] Comment on above: Performed By: #### V IDH, ANEU, VALPR, TSH, ADIFF, GFR, CMP, CBC #### [place] [address] VALPRon 09-22-2024 LDose Valproic Acid: Unknown Normal [facility] Comment on above: Performed By: #### V IDH #### [place] [address] Valproic Acid Lvl 51 mcg/mL Normal 50-[address] [facility] Comment on above: Performed By: #### V IDH #### [place] [address] VIDHon 09-22-2024 Vit. D 25-Hydroxy 21.9 ng/mL Normal [facility] Comment on above: Result Comment: Inte rpretive Values Based on Total 25(OH) Vitamin D: Deficient <20 ng/mL Insufficient 20 - <30 ng/mL Sufficient 30-100 ng/mL Performed By: #### V IDH, ANEU, VALPR, TSH, ADIFF, GFR, CMP, CBC #### [place] [address] XR CHEST 2 VIEWSon XR CHEST 2 VIEWS ORIGINAL EXAMINATION: TWO XRAY VIEWS OF THE CHEST 07/23/2024 1:57 pm COMPARISON: None. HISTORY: ORDERING SYSTEM PROVIDED HISTORY: Reason for Exam: cough, fever x 2 weeks FINDINGS: The lungs are without acute focal process. There is no effusion or pneumothorax. The cardiomediastinal silhouette is without acute process. The osseous structures are without acute process. IMPRESSION: No acute process. Interpreted by: Dwight Hu DO Preliminary Report By: Dwight Hu DO Electronically signed By Dwight Hu DO Dictated Date: 07/23/2024 3:24:36 PM Prelim Date: 07/23/2024 3:24:57 PM Sign Date: 07/23/2024 3:24:57 PM Ordering Provider: JOEL LAGOS [facility] No Panel InformationOrdered By: Edgar Wilkins on 01-29-2024 Affirm Pathogens DNA Direct Probe Gardnerella vaginalis DNA Probe Positive Trichomonas vaginalis DNA Probe Negative Jenifer species DNA Probe Negative [facility] VALPRon 09-27-2023 LDose Valproic Acid: Unknown Normal [facility] ([place]) Comment on above: Performed By: #### V HODA YUAN #### [address] [address] Valproic Acid Lvl 80 mcg/mL Normal 50-100 [facility] ([place]) Comment on above: Performed By: #### V ALPAlirio VIDH #### [address] [address] VIDHon 09-27-2023 Vit. D 25-Hydroxy 20.2 ng/mL Normal [facility] ([place]) Comment on above: Result Comment: Inte rpretive Values Based on Total 25(OH) Vitamin D: Deficient <20 ng/mL Insufficient 20 - <30 ng/mL Sufficient 30-100 ng/mL Performed By: #### V ALPAlirio, VIDH #### [address] [address] .Auto Diffon 09-03-2023 Basophil, Absolute 0.0 10 3/mcL Normal 0.0-0.2 [facility] ([place]) Comment on above: Performed By: #### T SH, FT4, LIPID, ADIFF, CMP, GFR, ANEU, CBC #### [address] [address] Basophils/100 WBC (Bld) 0.5 % Normal 0.0-2.5 A [facility] ([place]) Comment on above: Performed By: #### T SH, FT4, LIPID, ADIFF, CMP, GFR, ANEU, CBC #### [address] [address] Eosinophil, Absolute 0.1 10 3/mcL Normal 0.0-0.4 [facility] ([place]) Comment on above: Performed By: #### T SH, FT4, LIPID, ADIFF, CMP, GFR, ANEU, CBC #### [address] [address] Eosinophils/100 WBC (Bld) 1.0 % Normal 0.0-7.0 [facility] ([place]) Comment on above: Performed By: #### T SH, FT4, LIPID, ADIFF, CMP, GFR, ANEU, CBC #### [address] [address] Lymphocyte, Absolute 3.1 10 3/mcL Normal 0.8-3.9 [facility] ([place]) Comment on above: Performed By: #### T SH, FT4, LIPID, ADIFF, CMP, GFR, ANEU, CBC #### [address] [address] Lymphocytes/100 WBC (Bld) 34.6 % Normal 10.0-50.0 [facility] ([place] Comment on above: Performed By: #### T SH, FT4, LIPID, ADIFF, CMP, GFR, ANEU, CBC #### [address] [address] Monocyte, Absolute 0.8 10 3/mcL Normal 0.2-1.0 [facility] ([place]) Comment on above: Performed By: #### T SH, FT4, LIPID, ADIFF, CMP, GFR, ANEU, CBC #### [address] [address] Monocytes/100 WBC (Bld) 8.6 % Normal 1.7-13.0 A [facility] ([place] Comment on above: Performed By: #### T SH, FT4, LIPID, ADIFF, CMP, GFR, ANEU, CBC #### [address] [address] Neutrophils/100 WBC (Bld) 55.3 % Normal 37.0-80.0 [facility] ([place]) Comment on above: Performed By: #### T SH, FT4, LIPID, ADIFF, CMP, GFR, ANEU, CBC #### [address] [address] .GFRon 09-03-2023 GFR Non- 82 ml/min/1.73sqm Normal [facility] ([place]) Comment on above: Result Comment: GFR Population mean for , Non- Americans Ages 20-29 = 116 mL/min/1.73 sq.m. Ages 30-39 = 107 mL/min/1.73 sq.m. Ages 40-49 = 99 mL/min/1.73 sq.m. Ages 50-59 = 93 mL/min/1.73 sq.m. Ages 60-69 = 85 mL/min/1.73 sq.m. Ages 70+ = 75 mL/min/1.73 sq.m. Chronic Kidney Disease: Less than 60 mL/min/1.73 square meters End Stage Renal Disease: Less than 15 mL/min/1.73 square meters Performed By: #### V ALPAlirio, VIMORAIMA #### [address] [address] GFR 100 ml/min/1.73sqm Normal [facility] ([place]) Comment on above: Result Comment: GFR Population mean for , Non- Americans Ages 20-29 = 116 mL/min/1.73 sq.m. Ages 30-39 = 107 mL/min/1.73 sq.m. Ages 40-49 = 99 mL/min/1.73 sq.m. Ages 50-59 = 93 mL/min/1.73 sq.m. Ages 60-69 = 85 mL/min/1.73 sq.m. Ages 70+ = 75 mL/min/1.73 sq.m. Chronic Kidney Disease: Less than 60 mL/min/1.73 square meters End Stage Renal Disease: Less than 15 mL/min/1.73 square meters Performed By: #### V KWABENA VIMORAIMA #### [address] [address] .NEUABSon 09-03-2023 Neutrophil, Absolute 5.0 10 3/mcL Normal 2.9-6.2 [facility] ([place]) Comment on above: Performed By: #### T SH, FT4, LIPID, ADIFF, CMP, GFR, ANEU, CBC #### [place] [address] CBCon 09-03-2023 Erythrocyte distribution width (RBC) [Ratio] 13.9 % Normal 11.5-14.5 [facility] ([place]) Comment on above: Performed By: #### T SH, FT4, LIPID, ADIFF, CMP, GFR, ANEU, CBC #### [place] [address] Hematocrit (Bld) [Volume fraction] 43.5 % Normal 37.0-47.0 [facility] ([place]) Comment on above: Performed By: #### T SH, FT4, LIPID, ADIFF, CMP, GFR, ANEU, CBC #### [place] [address] Hgb 14.8 G/dL Normal 12.0-16.0 [facility] ([place]) Comment on above: Performed By: #### T SH, FT4, LIPID, ADIFF, CMP, GFR, ANEU, CBC #### [place] [address] MCH (RBC) [Entitic mass] 30.2 pg Normal 27.0-31.2 [facility] ([place]) Comment on above: Performed By: #### T SH, FT4, LIPID, ADIFF, CMP, GFR, ANEU, CBC #### [place] [address] MCHC 34.1 G/dL Normal 33.0-37.0 [facility] ([place]) Comment on above: Performed By: #### T SH, FT4, LIPID, ADIFF, CMP, GFR, ANEU, CBC #### [address] [address] MCV (RBC) [Entitic vol] 88.6 fL Normal 80.0-94.0 A [facility] ([place]) Comment on above: Performed By: #### T SH, FT4, LIPID, ADIFF, CMP, GFR, ANEU, CBC #### [address] [address] Platelet 296 10 3/mcL Normal 130-400 [facility] ([place]) Comment on above: Performed By: #### T SH, FT4, LIPID, ADIFF, CMP, GFR, ANEU, CBC #### [address] [address] Platelet mean volume (Bld) [Entitic vol] 7.8 fL Normal 7.4-10.4 [facility] ([place]) Comment on above: Performed By: #### T SH, FT4, LIPID, ADIFF, CMP, GFR, ANEU, CBC #### [address] [address] RBC 4.91 10 6/mcL Normal 4.20-5.40 [facility] ([place]) Comment on above: Performed By: #### T SH, FT4, LIPID, ADIFF, CMP, GFR, ANEU, CBC #### [address] [address] WBC 9.1 10 3/mcL Normal 4.6-10.8 [facility] ([place]) Comment on above: Performed By: #### T SH, FT4, LIPID, ADIFF, CMP, GFR, ANEU, CBC #### [address] [address] CMPon 09-03-2023 Albumin Level 3.5 G/dL Normal 3.5-5.0 [facility] ([place]) Comment on above: Performed By: #### T SH, FT4, LIPID, ADIFF, CMP, GFR, ANEU, CBC #### [address] [address] Albumin/Globulin [Mass ratio] 0.9 {ratio} Low 1.1-2.5 [facility] ([place]) Comment on above: Performed By: #### T SH, FT4, LIPID, ADIFF, CMP, GFR, ANEU, CBC #### [address] [address] ALP [Catalytic activity/Vol] 78 U/L Normal 40-135 [facility] ([place]) Comment on above: Performed By: #### T SH, FT4, LIPID, ADIFF, CMP, GFR, ANEU, CBC #### [place] [address] ALT [Catalytic activity/Vol] 33 U/L Normal 14-59 [facility] ([place]) Comment on above: Performed By: #### T SH, FT4, LIPID, ADIFF, CMP, GFR, ANEU, CBC #### [place] [address] AST [Catalytic activity/Vol] 17 U/L Normal 10-40 [facility] ([place]) Comment on above: Performed By: #### T SH, FT4, LIPID, ADIFF, CMP, GFR, ANEU, CBC #### [address] [address] Bili Total 0.3 mg/dL Normal 0.2-1.0 [facility] ([place]) Comment on above: Result Comment: Use of this assay is not recommended for patients undergoing treatment with eltrombopag due to the potential for falsely elevated results. Performed By: #### T SH, FT4, LIPID, ADIFF, CMP, GFR, ANEU, CBC #### [place] [address] BUN/Creatinine Ratio 22 ratio Normal 7-27 [facility] ([place]) Comment on above: Performed By: #### T SH, FT4, LIPID, ADIFF, CMP, GFR, ANEU, CBC #### [address] [address] Calcium [Mass/Vol] 9.3 mg/dL Normal 8.4-10.2 [facility] ([place]) Comment on above: Performed By: #### T SH, FT4, LIPID, ADIFF, CMP, GFR, ANEU, CBC #### [address] [address] Chloride [Moles/Vol] 102 mmol/L Normal 98-107 [facility] ([place]) Comment on above: Performed By: #### T SH, FT4, LIPID, ADIFF, CMP, GFR, ANEU, CBC #### [address] [address] CO2 [Moles/Vol] 26 mmol/L Normal 22-29 [facility] ([place]) Comment on above: Performed By: #### T SH, FT4, LIPID, ADIFF, CMP, GFR, ANEU, CBC #### [place] [address] Creatinine [Mass/Vol] 0.74 mg/dL Normal 0.55-1.02 [facility] ([place]) Comment on above: Performed By: #### T SH, FT4, LIPID, ADIFF, CMP, GFR, ANEU, CBC #### [place] [address] Electrolyte Balance 11.0 mEq/L Normal 4.0-15.0 [facility] ([place]) Comment on above: Performed By: #### T SH, FT4, LIPID, ADIFF, CMP, GFR, ANEU, CBC #### [address] [address] Globulin 3.8 G/dL Normal [facility] ([place]) Comment on above: Performed By: #### T SH, FT4, LIPID, ADIFF, CMP, GFR, ANEU, CBC #### [place] [address] Glucose [Mass/Vol] 71 mg/dL Normal 70-105 [facility] ([place]) Comment on above: Performed By: #### T SH, FT4, LIPID, ADIFF, CMP, GFR, ANEU, CBC #### [address] [address] Potassium [Moles/Vol] 4.4 mmol/L Normal 3.5-5.1 [facility] ([place]) Comment on above: Performed By: #### T SH, FT4, LIPID, ADIFF, CMP, GFR, ANEU, CBC #### [address] [address] Sodium [Moles/Vol] 139 mmol/L Normal 136-145 [facility] ([place]) Comment on above: Performed By: #### T SH, FT4, LIPID, ADIFF, CMP, GFR, ANEU, CBC #### [place] [address] Total Protein 7.3 G/dL Normal 6.4-8.2 [facility]) Comment on above: Performed By: #### T SH, FT4, LIPID, ADIFF, CMP, GFR, ANEU, CBC #### [place] [address] Urea nitrogen [Mass/Vol] 16 mg/dL Normal 7-18 [facility]) Comment on above: Performed By: #### T SH, FT4, LIPID, ADIFF, CMP, GFR, ANEU, CBC #### [address] [address] FT4on 09-03-2023 Free T4 [Mass/Vol] 1.17 ng/dL Normal 0.76-1.46 [facility] ([place]) Comment on above: Performed By: #### T SH, FT4, LIPID, ADIFF, CMP, GFR, ANEU, CBC #### [address] [address] LABORATORYOrdered By: SYSTEM SYSTEM on 09-03-2023 Albumin BCP dye [Mass/Vol] 3.5 G/dL Normal 3 .5 - 5.0 G/dL AO ADM SS Albumin/Globulin [Mass ratio] 0.9 {ratio} Low 1.1 - 2.5 ratio AO ADM SS ALP [Catalytic activity/Vol] 78 U/L Normal 40 - 135 U/L AO ADM SS ALT With P-5'-P [Catalytic activity/Vol] 33 U/L Normal 14 - 59 U/L AO ADM SS AST With P-5'-P [Catalytic activity/Vol] 17 U/L Normal 10 - 40 U/L AO ADM SS Basophil, Absolute 0.0 103/mcL Normal 0.0 - 0.2 10^3/mcL AO Workflow SS Basophils/100 WBC (Bld) 0.5 % Normal 0.0 - 2.5 % AO Workflow SS Bilirubin [Mass/Vol] 0.3 mg/dL Normal 0.2 - 1 .0 mg/dL AO ADM SS Comment on above: Interpretive Data: U se of this assay is not recommended for patients undergoing treatment with eltrombopag due to the potential for falsely elevated results. Calcium [Mass/Vol] 9.3 mg/dL Normal 8.4 - 10. 2 mg/dL AO ADM SS Chloride [Moles/Vol] 102 mmol/L Normal 98 - 10 7 mmol/L AO ADM SS CO2 [Moles/Vol] 26 mmol/L Normal 22 - 29 mmol/L AO ADM SS Creatinine [Mass/Vol] 0.74 mg/dL Normal 0.55 - 1.02 mg/dL AO ADM SS Electrolyte Balance 11.0 mEq/L Normal 4.0 - 15 .0 mEq/L AO ADM SS Eosinophil, Absolute 0.1 103/mcL Normal 0.0 - 0 .4 10^3/mcL AO Workflow SS Eosinophils/100 WBC (Bld) 1.0 % Normal 0. 0 - 7.0 % AO Workflow SS Erythrocyte distribution width (RBC) [Ratio] 13.9 % Normal 11.5 - 14.5 % AO Workflow SS Free T4 [Mass/Vol] 1.17 ng/dL Normal 0.76 - 1.46 ng/dL AO ADM SS GFR/1.73 sq M.predicted among blacks MDRD (S/P/Bld) [Vol rate/Area] 100 ml/min/1.73sqm Invalid Interpretation Code AO Chemistry S Comment on above: Interpretive Data: GFR Population mean for , Non- Americans Ages 20-29 = 116 mL/min/1.73 sq.m. Ages 30-39 = 107 mL/min/1.73 sq.m. Ages 40-49 = 99 mL/min/1.73 sq.m. Ages 50-59 = 93 mL/min/1.73 sq.m. Ages 60-69 = 85 mL/min/1.73 sq.m. Ages 70+ = 75 mL/min/1.73 sq.m. Chronic Kidney Disease: Less than 60 mL/min/1.73 square meters End Stage Renal Disease: Less than 15 mL/min/1.73 square meters GFR/1.73 sq M.predicted among non-blacks MDRD (S/P/Bld) [Vol rate/Area] 82 ml/min/1.73sqm Invalid Interpretation Code AO Chemistry S Comment on above: Interpretive Data: GFR Population mean for , Non- Americans Ages 20-29 = 116 mL/min/1.73 sq.m. Ages 30-39 = 107 mL/min/1.73 sq.m. Ages 40-49 = 99 mL/min/1.73 sq.m. Ages 50-59 = 93 mL/min/1.73 sq.m. Ages 60-69 = 85 mL/min/1.73 sq.m. Ages 70+ = 75 mL/min/1.73 sq.m. Chronic Kidney Disease: Less than 60 mL/min/1.73 square meters End Stage Renal Disease: Less than 15 mL/min/1.73 square meters Globulin 3.8 G/dL Invalid Interpretation Code AO ADM SS Glucose [Mass/Vol] 71 mg/dL Normal 70 - 105 mg/dL AO ADM SS Hematocrit (Bld) [Volume fraction] 43.5 % Normal 37.0 - 47.0 % AO Workflow SS Hemoglobin (Bld) [Mass/Vol] 14.8 G/dL Normal 12.0 - 16.0 G/dL AO Workflow SS Lymphocyte, Absolute 3.1 103/mcL Normal 0.8 - 3 .9 10^3/mcL AO Workflow SS Lymphocytes/100 WBC (Bld) 34.6 % Normal 10 .0 - 50.0 % AO Workflow SS MCH (RBC) [Entitic mass] 30.2 pg Normal 27. 0 - 31.2 pg AO Workflow SS MCHC 34.1 G/dL Normal 33.0 - 37.0 G/dL AO Workflow SS MCV (RBC) [Entitic vol] 88.6 fL Normal 80.0 - 94.0 fL AO Workflow SS Monocyte, Absolute 0.8 103/mcL Normal 0.2 - 1.0 10^3/mcL AO Workflow SS Monocytes/100 WBC (Bld) 8.6 % Normal 1.7 - 13.0 % AO Workflow SS Neutrophil, Absolute 5.0 103/mcL Normal 2.9 - 6 .2 10^3/mcL AO Workflow SS Neutrophils/100 WBC (Bld) 55.3 % Normal 37 .0 - 80.0 % AO Workflow SS Platelet mean volume (Bld) [Entitic vol] 7.8 fL Normal 7.4 - 10.4 fL AO Workflow SS Platelets (Bld) [#/Vol] 296 103/mcL Normal 130 - 400 10^3/mcL AO Workflow SS Potassium [Moles/Vol] 4.4 mmol/L Normal 3.5 - 5.1 mmol/L AO ADM SS Protein [Mass/Vol] 7.3 G/dL Normal 6.4 - 8.2 G/dL AO ADM SS RBC (Bld) [#/Vol] 4.91 106/mcL Normal 4.20 - 5.40 10^6/mcL AO Workflow SS Sodium [Moles/Vol] 139 mmol/L Normal 136 - 145 mmol/L AO ADM SS TSH Qn 0.31 m[IU]/L Low 0.36 - 3.74 mcIU/mL AO ADM SS Urea nitrogen [Mass/Vol] 16 mg/dL Normal 7 - 18 mg/dL AO ADM SS Urea nitrogen/Creatinine [Mass ratio] 22 ratio Normal 7 - 27 ratio AO ADM SS WBC (Bld) [#/Vol] 9.1 103/mcL Normal 4.6 - 10.8 10^3/mcL AO Workflow SS LABORATORYOrdered By: Jordi Grimaldo on 09-03-2023 Cholesterol [Mass/Vol] 196 mg/dL Normal 0 - 2 00 mg/dL AO ADM SS Comment on above: Interpretive Data: C holesterol Reference Interval: Less than 200 Desirable 200-239 Borderline high risk 240 and above High risk Cholesterol in HDL [Mass/Vol] 42 mg/dL Normal 40 - 60 mg/dL AO ADM SS Cholesterol in LDL [Mass/Vol] 104 mg/dL Normal 0 - 130 mg/dL AO ADM SS Triglyceride [Mass/Vol] 251 mg/dL High 0 - 150 mg/dL AO ADM SS Comment on above: Interpretive Data: T riglyceride Reference Interval: Less than 150 Normal 150-199 Borderline high risk 200-499 High risk 500 or higher Very high risk LIPIDon 09-03-2023 Cholesterol [Mass/Vol] 196 mg/dL Normal 0-200 [facility] ([place]) Comment on above: Result Comment: Chol esterol Reference Interval: Less than 200 Desirable 200-239 Borderline high risk 240 and above High risk Performed By: #### V ALPAlirio, FRANCOISE #### [address] [address] Cholesterol in HDL [Mass/Vol] 42 mg/dL Normal 40-60 [facility] ([place]) Comment on above: Performed By: #### V ALPAlirio, FRANCOISE #### [address] [address] Cholesterol in LDL [Mass/Vol] 104 mg/dL Normal 0-130 [facility] ([place]) Comment on above: Performed By: #### V KWABENA, FRANCOISE #### [address] [address] Triglyceride [Mass/Vol] 251 mg/dL High 0-150 A [facility] ([place]) Comment on above: Result Comment: Trig lyceride Reference Interval: Less than 150 Normal 150-199 Borderline high risk 200-499 High risk 500 or higher Very high risk Performed By: #### V KWABENA, VIMORAIMA #### [address] [address] TSHon 09-03-2023 TSH Qn 0.31 m[IU]/L Low 0.36-3.74 [facility] ([place]) Comment on above: Performed By: #### T SH, FT4, LIPID, ADIFF, CMP, GFR, ANEU, CBC #### [address] [address] [place] MAMMOGRAM SCREENING BILAT ERAL W/TOMOon 04-08-2023 [place] MAMMOGRAM SCREENING BILATERAL W/DIRK ORIGINAL FROM: [address] [address] PROCEDURE FOR: MEGAN ESPINOZA [address] [place] [address] Home: PID#: [id number] Exam#: [id number] : 1970 Age: 53 TO: JOEL LAGOS [facility] [address], [place] [address] Fax: NO FAX EXAMINATION: SCREENING DIGITAL BILATERAL MAMMOGRAM WITH TOMOSYNTHESIS, 04/08/2023 9:40 am TECHNIQUE: Screening mammography of the bilateral breasts was performed with tomosynthesis. 2D standard and 3D tomosynthesis combination imaging performed through both breasts in the MLO and CC projection. Computer aided detection was utilized in the interpretation of this exam. COMPARISON: 08/01/2021, 07/01/2020 HISTORY: Breast cancer screening. FINDINGS: BREAST DENSITY: Scattered fibroglandular tissue There are benign appearing calcifications in the left breast. There are no significant masses or calcifications. IMPRESSION: No mammographic evidence of malignancy. Continued screening with annual mammograms is recommended. Jamari zick risk calculations, generated with the history provided, report this patient's 10 year risk and lifetime risk for developing breast cancer at 1.7% and 6.2%, respectively. Based on this assessment tool, if the patient's calculated lifetime risk is below 20%, then the patient is considered at average risk for developing breast cancer. If the patient's calculated lifetime risk is at or above 20%, then the patient is considered high risk for developing breast cancer and may be a candidate for supplemental breast MRI screening in addition to annual mammographic screening per the [place] [employer]. BIRADS: MAMMOGRAM BI-RADS: 2: Benign finding RECALL: 1 year screening RECALL TYPE: mammo LETTER SENT: Normal BI-RADS 1 and 2 Interpreted by: Kyle Cruz MD Preliminary Report By: Kyle Cruz MD Electronically signed By Kyle Cruz MD Dictated Date: 04/08/2023 4:47:02 PM Prelim Date: 04/08/2023 4:56:41 PM Sign Date: 04/08/2023 4:56:41 PM Ordering Provider: JOEL LAGOS Cupola Melter: GUERO MATTHEW RT(R) (M) letter sent: Normal BI-RADS 1 and 2 Mammogram BI-RADS: 2 Benign Normal [facility] ([place]) Basophil percentageOrdered B y: Dr. Stockton on 10-08-2022 Bilirubin [Mass/Vol] 0.20 mg/dL 0.20-1.00 [facility] Comment on above: For patients on eltr ombopag therapy, use of Dimension Byers TBIL is not recommended. Protein [Mass/Vol] 7.4 g/dL 6.4-8.2 [facility] WBC (Bld) [#/Vol] 7.0 10*3/uL 4.4-11.0 [facility] Blood erythrocytes count (nu mber/volume)Ordered By: Dr. Stockton on 10-08-2022 RBC (Bld) [#/Vol] 4.98 10*6/uL 4.2-5.4 [facility] Blood hemoglobin measurement (mass/volume)Ordered By: Dr. Stockton on 10-08-2022 Hemoglobin (Bld) [Mass/Vol] 14.5 g/dL 12.0-15. 0 [facility] Blood platelet mean volumeOr dered By: Dr. Stockton on 10-08-2022 Platelet mean volume (Bld) [Entitic vol] 9.1 fL 6.2-12.0 [facility] Determination of erythrocyte mean corpuscular volume (MCV)Ordered By: Dr. Stockton on 10-08-2022 MCV (RBC) [Entitic vol] 93.2 fL 81-99 [facility] Direct bilirubinOrdered By: Dr. Stockton on 10-08-2022 Bilirubin.direct [Mass/Vol] 0.09 mg/dL 0.00-0.3 0 [facility] Hematocrit Auto (Bld) [Volum e fraction]Ordered By: Dr. Stockton on 10-08-2022 Hematocrit (Bld) [Volume fraction] 46.4 % 37-47 [facility] Laboratory - Chemistry and C hemistry - challengeOrdered By: Dr. Stockton on 10-08-2022 ALP [Catalytic activity/Vol] 88 U/L 45-117 [facility] ALT [Catalytic activity/Vol] 31 U/L 13-56 [facility] Free T4 [Mass/Vol] 1.06 ng/dL 0.76-1.46 [facility] Globulin (S) [Mass/Vol] 4.1 g/dL 2.2-4.[address] [facility] - Hematology and Cell countsOrdered By: Dr. Stockton on 10-08-2022 Erythrocyte distribution width (RBC) [Entitic vol] 44.2 fL 35.1-43.9 [facility] Erythrocyte distribution width (RBC) [Ratio] 13.0 % 11.6-14.6 [facility] MCH (RBC) [Entitic mass] 29.1 pg 27.0-32.0 [facility] MCHC Auto (RBC) [Mass/Vol]Or dered By: Dr. Stockton on 10-08-2022 MCHC (RBC) [Mass/Vol] 31.3 g/dL 32-36 [facility] No Panel InformationOrdered By: Dr. Stockton on 10-08-2022 Free Triiodothyronine (T3) pg/dL 2.7 pg/mL 2.18-3.98 [facility] Thyroid Stimulating Hormone (TSH) 0.10 uIU/mL 0.358-3.74 [facility] Valproic Acid (Depakene) Level 98 ug/mL 50-100 [facility] Platelets bldOrdered By: Dr. Stockton on 10-08-2022 Platelets (Bld) [#/Vol] 255 10*3/uL 150-450 [facility] Serum or plasma albumin rick urement (mass/volume)Ordered By: Dr. Stockton on 10-08-2022 Albumin [Mass/Vol] 3.3 g/dL 3.2-5.0 [facility] Thin prep Papanicolaou smear with manual screeningOrdered By: Dr. Stockton on 10-08-2022 Thin prep Papanicolaou smear with manual screening 16 U/L 15-37 [facility] LABORATORYOrdered By: SYSTEM SYSTEM on 07-17-2022 Calcium [Mass/Vol] 9.2 mg/dL Invalid Interpretation Code 8.4 - 10.2 mg/dL AO ADM SS Chloride [Moles/Vol] 105 mmol/L Invalid Interpretation Code 98 - 107 mmol/L AO ADM SS CO2 [Moles/Vol] 31 mmol/L Invalid Interpretation Code 22 - 29 mmol/L AO ADM SS Creatinine [Mass/Vol] 0.85 mg/dL Invalid Interpretation Code 0.55 - 1.02 mg/dL AO ADM SS Electrolyte Balance 6.0 mEq/L Invalid Interpretation Code 4.0 - 15.0 mEq/L AO ADM SS GFR 85 ml/min/1.73sqm Invalid Interpretation Code AO Chemistry S GFR Non- 70 ml/min/1.73sqm Inval id Interpretation Code AO Chemistry S Glucose [Mass/Vol] 82 mg/dL Invalid Interpretation Code 70 - 105 mg/dL AO ADM SS Potassium [Moles/Vol] 5.1 mmol/L Invalid Interpretation Code 3.5 - 5.1 mmol/L AO ADM SS Sodium [Moles/Vol] 142 mmol/L Invalid Interpretation Code 136 - 145 mmol/L AO ADM SS Urea nitrogen [Mass/Vol] 14 mg/dL Invalid Interpretation Code 7 - 18 mg/dL AO ADM SS Urea nitrogen/Creatinine [Mass ratio] 16 ratio Invalid Interpretation Code 7 - 27 ratio AO ADM SS LABORATORYOrdered By: Jordi Grimaldo on 07-17-2022 Cholesterol [Mass/Vol] 178 mg/dL Invalid Interpretation Code 0 - 200 mg/dL AO ADM SS Cholesterol in HDL [Mass/Vol] 35 mg/dL Invalid Interpretation Code 40 - 60 mg/dL AO ADM SS Cholesterol in LDL [Mass/Vol] 97 mg/dL Invalid Interpretation Code 0 - 130 mg/dL AO ADM SS Triglyceride [Mass/Vol] 229 mg/dL Invalid Interpretation Code 0 - 150 mg/dL AO ADM SS LABORATORYOrdered By: Jordi Smith on 08-01-2021 HPV Interp High Risk HPV Typing : NEGATIVEHPV types 16, 18, 31, 33, 35, 39, 45, 51, 52, 56, 58, 59, 66 and 68 DNA wereundetectable or below the pre-set threshold.The jigna High-Risk HPV DNA Test is not intended for use as a screening device forPap normal women under age 30 and is not intended to substitute for regular Papscreening.The jigna High-Risk HPV DNA Test is designed to augment existing methods for thedetection of cervical disease and should be used in conjunction with clinicalinformation derived from other diagnostic and screening tests, physical examinationsand full medical history in accordance with appropriate patient managementprocedures. NOTE: A negative result does not preclude the presence of HPV infection because resultsdepend on adequate specimen collection, absence of inhibitors and sufficientDNA to be detected. Invalid Interpretation Code See Interp HPVN Auto Viro/Sero SS Specimen source Nom (Unsp spec) Cervix (08/01/21 8:37 AM) Invalid Interpretation Code Auto Viro/Sero SS COVID PCR, SCREENING CONGREG ATEon 12-09-2019 Lab Specimen Source Nasal, Nasopharyngeal Normal [facility] Comment on above: Performed By: #### C VCLA #### [facility] [address] [place] [address] CORONAVIRUS 2019,PCR NOT DETECTED Normal Not Detected [facility] Comment on above: Result Comment: This assay is designed to detect the N, ORF1ab and/or S genes of SARS-CoV-2 via nucleic acid amplification. A Negative (NOT DETECTED) result does not preclude 2019-nCoV infection since the adequacy of sample collection and/or low viral burden may result in presence of viral nucleic acids below the clinical sensitivity of this test method. Negative (NOT DETECTED) result should not be used as the sole basis for treatment or other patient management decisions. Rather negative results should be combined with clinical observations, patient history, and epidemiological information to make patient management decisions. Fact sheet for providers: https://www.fda.gov/media/703784/download Fact sheet for patients: https://www.fda.gov/media/783850/download This test has received FDA Emergency Use Authorization (EUA) and has been verified by [facility] ([facility]). This test is only authorized for the duration of time that circumstances exist to justify the authorization of the emergency use of in vitro diagnostic tests for the detection of SARS-CoV-2 virus and/or diagnosis of COVID-19 infection under section 564(b)(1) of the Act, 21 U.S.C. 360bbb-3(b)(1), unless the authorization is terminated or revoked sooner. [facility] ([facility]) is certified under CLIA-88 as qualified to perform high complexity testing. This tests analytical performance characteristics have been determined by [facility]. Testing is performed at [facility] is located at [address] [place] [address] (CLIA License #[id number], CAP #[id number]). Performed By: #### C [facility] #### [facility] [address] [place] [address] Vital Signs Date Time Vital Sign Value Performing Clinician Hannah garcia 04-06-2025 12:25-0400 Body height 162.56 cm Joel Lagos DISTRIBUTION AGENT-C Work Phone: [facility] 04-06-2025 12:25-0400 Body mass index (BMI) [Ratio] 31.2 kg/m2 Joel Lagos DISTRIBUTION AGENT-C Work Phone: [facility] 04-06-2025 12:25-0400 Body temperature 97.2 [degF] Joel Lagos DISTRIBUTION AGENT-C Work Phone: [facility] 04-06-2025 12:25-0400 Body weight 82.55 kg Joel Lagos DISTRIBUTION AGENT-C Work Phone: [facility] 04-06-2025 12:25-0400 Diastolic blood pressure 87 mm[Hg] Joel Lagos DISTRIBUTION AGENT-C Work Phone: [facility] 04-06-2025 12:25-0400 Heart rate 80 /min Joelcamron Lagos DISTRIBUTION AGENT-C Work Phone: [facility] 04-06-2025 12:25-0400 Respiratory rate 18 /min Joel Lagos DISTRIBUTION AGENT-C Work Phone: [facility] 04-06-2025 12:25-0400 SaO2% (BldA) [Mass fraction] 96 % Joel Lagos DISTRIBUTION AGENT-C Work Phone: [facility] 04-06-2025 12:25-0400 Systolic blood pressure 142 mm[Hg] Joel Lagos DISTRIBUTION AGENT-C Work Phone: [facility] 03-02-2025 08:09-0400 Body mass index (BMI) [Ratio] 30.9 kg/m2 Joel Lagos DISTRIBUTION AGENT-C Work Phone: [facility] 03-02-2025 08:09-0400 Body temperature 97.1 [degF] Joel Marshfield DISTRIBUTION AGENT-C Work Phone: [facility] 03-02-2025 08:09-0400 Body weight 81.64 kg Joel Marshfield DISTRIBUTION AGENT-C Work Phone: [facility] 03-02-2025 08:09-0400 Diastolic blood pressure 74 mm[Hg] Joel Demond DISTRIBUTION AGENT-C Work Phone: [facility] 03-02-2025 08:09-0400 Heart rate 80 /min Joel Marshfield DISTRIBUTION AGENT-C Work Phone: [facility] 03-02-2025 08:09-0400 Respiratory rate 18 /min Joel Demond DISTRIBUTION AGENT-C Work Phone: [facility] 03-02-2025 08:09-0400 SaO2% (BldA) [Mass fraction] 99 % Joelcamron Beckettmer DISTRIBUTION AGENT-C Work Phone: [facility] 03-02-2025 08:09-0400 Systolic blood pressure 137 mm[Hg] Joel Marshfield DISTRIBUTION AGENT-C Work Phone: [facility] 01-14-2025 10:37-0400 Body height 162.56 cm Joel Beckettmer DISTRIBUTION AGENT-C Work Phone: [facility] 01-14-2025 10:37-0400 Body mass index (BMI) [Ratio] 31.1 kg/m2 Joel Lagos DISTRIBUTION AGENT-C Work Phone: [facility] 01-14-2025 10:37-0400 Body temperature 95.6 [degF] Joel Lagos DISTRIBUTION AGENT-C Work Phone: [facility] 01-14-2025 10:37-0400 Body weight 82.15 kg Joel Lagos DISTRIBUTION AGENT-C Work Phone: [facility] 01-14-2025 10:37-0400 Diastolic blood pressure 83 mm[Hg] Joel Lagos DISTRIBUTION AGENT-C Work Phone: [facility] 01-14-2025 10:37-0400 Heart rate 78 /min Joel Beckettmer DISTRIBUTION AGENT-C Work Phone: [facility] 01-14-2025 10:37-0400 Respiratory rate 18 /min Joel Beckettmer DISTRIBUTION AGENT-C Work Phone: [facility] 01-14-2025 10:37-0400 SaO2% (BldA) [Mass fraction] 95 % Joel Beckettmer DISTRIBUTION AGENT-C Work Phone: [facility] 01-14-2025 10:37-0400 Systolic blood pressure 138 mm[Hg] Joel Lagos DISTRIBUTION AGENT-C Work Phone: [facility] Encounters Encounter Date Encounter Type Care Provider Facility Start: 05-03-2025 ambulatory Joel Demond Facility :[facility] Start: 04-06-2025 End: 04-06-2025 Patient encounter procedure [facility]BUTION [facility] Start: 04-06-2025 End: 04-06-2025 ambulatory Joel Demond Facility:[facility] Start: 04-06-2025 ambulatory JOEL BECKETTRory ER [employer] Facility:[facility] Start: 03-02-2025 End: 03-02-2025 Patient encounter procedure DISTRIBUTION AGENT Mary Valdivia [facility] Work Phone: Start: 03-02-2025 End: 03-02-2025 ambulatory Joel Beckettmer DISTRIBUTION AGENT-C Work Phone: [facility] Start: 01-26-2025 End: 01-26-2025 ambulatory JOEL BECKETTMER [employer] Facility:[facility] Start: 01-26-2025 End: 01-26-2025 Patient encounter procedure JOEL Duval DEMOND [employer] [facility] Start: 01-14-2025 End: 01-14-2025 ambulatory Joel Beckettmer DISTRIBUTION AGENT-C Work Phone: -Laboratory Start: 01-14-2025 End: 01-14-[address] Akin Meredith DO -Laboratory Work Phone: Start: 01-14-2025 End: 01-14-[address] Akin Meredith DO -[facility] Work Phone: Start: 01-14-2025 End: 01-14-2025 ambulatory Joel Lagos DISTRIBUTION AGENT-C Work Phone: -[facility] Start: 01-14-2025 End: 01-14-2025 ambulatory Akin Meredith Facility:[facility] Start: 09-28-2024 End: 09-28-2024 ambulatory JOEL Mukund BECKETTDEMOND [employer] Facility:[facility] Start: 09-22-2024 End: 09-22-2024 ambulatory SAMMYLALO LIUA [employer] Facility:[facility] Start: 07-23-2024 End: 07-23-2024 ambulatory JOEL Mukund DEMOND [employer] Facility:[facility] Start: 07-23-2024 End: 07-23-2024 Patient encounter procedure JOEL S DEMOND [employer] [facility] Start: 01-29-2024 End: 02-02-2024 ambulatory JOEL S DEMOND [employer] Facility:[facility] Start: 01-29-2024 End: 02-02-2024 Outreach Lab JOEL Mukund DEMOND [employer] [facility] Start: 09-27-2023 End: 09-27-2023 ambulatory SAMMY A NOEA [employer] Facility:[facility] Start: 09-03-2023 End: 09-03-2023 ambulatory JOEL S DEMOND [employer] Facility:[facility] Start: 09-03-2023 End: 09-03-2023 Patient encounter procedure JOEL S DEMOND [employer] [facility] Start: 04-08-2023 End: 04-08-2023 ambulatory JOEL S DEMOND [employer] Facility:[facility] Start: 04-08-2023 End: 04-08-2023 Patient encounter procedure JOEL Duval DEMOND [employer] [facility] Start: 12-31-2022 End: 12-31-2022 Patient encounter procedure PHY WO ID REFERRING [facility] Start: 10-08-2022 End: 10-08-2022 ambulatory [facility] Work Phone: Start: 10-08-2022 End: 10-08-2022 Patient encounter procedure [facility] Start: 07-17-2022 End: 07-17-2022 Patient encounter procedure JOEL Duval DEMOND [employer] [facility] Start: 08-01-2021 End: 08-05-2021 Outreach Lab JOEL Duval DEMOND [employer] [facility] Start: 08-01-2021 End: 08-01-2021 Patient encounter procedure JOEL Duval DEMOND [employer] [facility] Procedures Date Procedure Procedure Detail Performing Clinician Start: 01-14-2025 Alternaria alternata KERON Lagos DISTRIBUTION AGENT-C Work Phone: Start: 01-14-2025 [place] cockroach RASRocío Lagos DISTRIBUTION AGENT-C Work Phone: Start: 01-14-2025 Antibody measurement Hank Lagos DISTRIBUTION AGENT-C Work Phone: Comment on above: The atypical pANCA p attern has been observed in asignificant percentage of patients with ulcerative colitis,primary sclerosing cholangitis and autoimmune hepatitis. Start: 01-14-2025 Box elder KERON Lagos DISTRIBUTION AGENT-C Work Phone: Start: 01-14-2025 Cat dander RAST Joel Demond DISTRIBUTION AGENT-C Work Phone: Start: 01-14-2025 [place] RAST Joel Narciso tmer DISTRIBUTION AGENT-C Work Phone: Start: 01-14-2025 Common ragweed RAST Marly aldana Marshfield DISTRIBUTION AGENT-C Work Phone: Start: 01-14-2025 Common silver birch RAST Joel Demond DISTRIBUTION AGENT-C Work Phone: Start: 01-14-2025 House dust mite (Df) RAST Joel Demond DISTRIBUTION AGENT-C Work Phone: Start: 01-14-2025 Mouse urine proteins RAST Joel Demond DISTRIBUTION AGENT-C Work Phone: Start: 01-14-2025 Pecan nut RAST Joel Lagos DISTRIBUTION AGENT-C Work Phone: Start: 01-14-2025 Penicillium chrysoge num RAST Joel Demond DISTRIBUTION AGENT-C Work Phone: Start: 01-14-2025 Cambodian thistle RAST Hank lyon Demond DISTRIBUTION AGENT-C Work Phone: Start: 01-14-2025 Tree pollen RAST Rafaela Lagos DISTRIBUTION AGENT-C Work Phone: Start: 01-14-2025 [place] pollen RAST Rafaela Lagos DISTRIBUTION AGENT-C Work Phone: Start: 06-17-1992 section RAFAELA LAGOS [employer] None (qualifier value) CHAN LAGOS [employer] Plan of Treatment Date Care Activity Detail Author Start: 04-06-2025 Cardiovascular stress testing [facility] Start: 01-14-2025 Measurement of respi ratory function [facility] CBC W Auto Different ial panel - Blood [facility] IgE [Units/volume] i n Serum or Plasma [facility] Immunizations Immunization Date Immunization Notes Care Provider Fa mary 08-24-2021 SARS-CoV-2 (COVID-19 ) mRNA-1273 vaccine JOEL DEMOND [employer] [facility] 07-27-2021 SARS-CoV-2 (COVID-19 ) mRNA-1273 vaccine JOEL DEMOND [employer] [facility] 03-17-2018 influenza virus vaccine, unspecified formulation JOEL DEMOND [employer] [facility] Payers Date Payer Category Payer Unknown [id number] 2018 Self-pay 1970 Unknown [id number] 2.16.8 [id number]. 1970 Unknown [id number] .16.8 [id number] 1970 Unknown [id number] 40.1.209472.3.579.2 1970 Unknown [id number] .16.8 40.1.238617.3.579.2.62 1970 Unknown [id number] 2.. [id number] 1970 Unknown [id number] 2.16. 840.1.805304.3.579.2.62 1970 Unknown [id number] 2.16. 840.1.027253.3.579.2. 1970 Unknown [id number] 2.16. 840.1.364011.3.579.2.62 1970 Unknown [id number] 2.16.8 40.1.448822.3.579.2.627 1970 Unknown [id number] 2.16.8 40.1.926125.3.579.2.627 1970 Unknown [id number] 2.16.8 40.1.557516.3.579.2.627 Self-pay [id number] Unknown [id number] 2.16.8 [id number] Unknown [id number] 2.16.8 [id number] Unknown [id number] 2.16.8 40.1.345613.3.579.2.462 Unknown [id number] 2.16.8 [id number] Unknown [id number] 2.16.8 [id number] Social History Date Type Detail Facility Start: 07-17-2019 End: 01-07-2025 Never smoked tobacco (finding) [facility] Start: 1970 Sex Assigned At Female [facility] Sexual Orientation [facility] Start: 12-10-2018 Sex Female (finding) [facility] Sex Female [facility] Clinical Notes 08-01-2021 to 04-06-2025 Note Date & Type Note Facility 04-06-2025 Progress note [facility] 04-06-2025 Progress note Note Date/Time April 06, 2025 3:35pm [facility] [address] [place], [place] [address] OFFICE VISIT Date of Service: 04/06/25 MR#: [id number] Acct: [id number] Name: MEGAN ESPINOZA Rep #: [id number] : 1970 Provider: Mary zayas NP Age/Sex: 55/F Location: [facility] Status: Signed Assessment and Plan Assessment and Plan (1) Shortness of breath: Status: Acute Plan: The patient is reporting shortness of breath associated with chest pain and tightness. The patient is also describing a chest heaviness to the right of hersternum. Her NIOX is elevated today which could suggest an asthma exacerbation and so I have recommended treating with oral prednisone at this time. She does have a faint expiratory wheeze on today's exam along with a diminished expiratory phase. She has completed an EKG from PCP which showed LVH per patient report. If the patient receives improvement in the symptoms with use oforal prednisone then the stress testing and ECHO can occur prior to follow-up. If there is no improvement in her symptoms with use of prednisone then I recommend the echo and stress testing be obtained to soon as possible. The patient will call and give an update on of this week. These 2 tests were previously ordered through [employer] system but the patient is self pay and [employer] is not giving them prices. (2) Chronic cough: Status: Chronic Plan: 80% improved with PPI for acid reflux and use of Trelegy. Her PFT from September 2024 and it does not suggest a flattened inspiratory limb or the presence of a fixed airway. I do believe that there was a combination of acid reflux disease and asthma that was contributing to her cough. Her NIOX is elevated today whichcontinues to point towards asthma and so I recommend that she continue with Trelegy 200, 1 inhalation daily. The patient is self-pay and so I will provide samples in the office at this time and consider adjusting the regimen on follow-up after acute symptoms have improved. STOP BANG is elevated, further testing may be warranted for sleep disordered breathing and will be discussed on follow up. I have recommended that the patient follow-up in 4 weeks to review responseto oral prednisone. Advance follow-up if there are worsening respiratory symptoms present or report to ER for severe worsening. Orders: Orders NIOX Today R05.3 - Chronic cough Stress Test Regular Today R06.02 - Shortness of breath, R94.31 - Abnormal electrocardiogram [ECG] [EKG] Echo Complete W/ Contrast Today R06.02 - Shortness of breath, R94.31 - Abnormal electrocardiogram [ECG] [EKG] Medications: New prednisone Take 2 tablets daily for 4 days then 1 tablet daily for 2 days. 20 mg PO QDAY 10 tabs 0RF J45.909 - Unspecified asthma, uncomplicated Plan Details Additional Comments: This note was generated with [employer] dictation software. It may contain incorrect words, spelling, and punctuation that were not noted in checking the note before signing. Follow Up: 4 Weeks (LMR) HPI HPI Comments Details: The patient is a 55-year-old female who presents to the office today for follow up of a chronic cough. She is ambulatory and currently on room air. Since last follow-up she has not been seen in the ER or urgent care for worsening respiratory symptoms. She has not received oral prednisone or antibiotics for her breathing. Previously noted by Dr. Meredith, the patient reported that she has been struggling with an intermittently productive cough since June 2024. She indicated that her cough initially began in June in the setting of an upper respiratory infection. She indicated that she has been diagnosed with several bouts of pneumonia over the course of the last year. She has never been formally diagnosed with asthma aside from indicating the possibility of exercise-induced bronchospasm 10 to 15 years ago. The patient is a lifelong non-smoker. She did not grow up in a smoking household. 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 She does not currently keep any animals as pets in her home environment. Prior pulmonary function studies completed through [facility] in September 2024 demonstrated no evidence of an obstructive ventilatory impairment. There was no significant bronchodilator response. Lung volumes and diffusing capacity were normal. CT chest without contrast from September 2024 apparently demonstrated tree-in-bud opacities in the right upper lobe. The patient then went on to have a repeat CT chest completed in December 2024 which demonstrated no significant pulmonary pathology. Her cough is 80% improved with use of omeprazole twice daily. She did use Trelegy for 2 weeks but lost the second inhaler and has been without inhaled therapy for the last 2 weeks. She denies cough today. She reports that wheezing will occur on occasion. She reports that there is chest pain and tightness along with shortness of breath. She had a recent EKG which showed left ventricular hypertrophy and she has an upcoming stress and echocardiogram scheduled for 2 weeks out through PCP. She reports that that chest pain and tightness has been occurring for the past 2 days. She indicates that she really needs to think about taking a deep breath. This does not occur routinely. It will come and go. She reports that her chest feels like there are books sitting on it at times. She indicates that this will occur when she lays down at night. She does not awaken gasping for air. PFT from September 28, 2024 shows no evidence of obstructive lung disease in the spirometry, normal lung volumes, normal diffusion capacity. Lab work from January 14, 2025 shows negative RAST testing, IgE at 5 IU/mL, ANCA is negative, atypical p-ANCA is negative and aspergillosis is negative. CBC with differential does not show evidence of eosinophilia. STOP-BANG Assessment: 1. Do you snore? [yes] not all the time per 2. Are you frequently tired during the day? [Yes ] 3. Have you been observed gasping or choking while asleep? [No] 4. Do you have high blood pressure? [Yes] 5. BMI - greater than 35kg/m2? [N] 6. Age - over 50 years old? [Yes] 7. Neck Circumference - greater than 37 cm for females or 40 cm for males? [N] 8. Gender - male? [N] Total STOP-BANG score = [4] which indicates [high] risk for obstructive sleep apnea (yes to 3 or more questions = high risk of sleep apnea). NIOX today is 39 ppb. Intake Vital Signs 03/02/25 08:09 04/06/25 12:25 Height 5 ft 4 in 5 ft 4 in Weight: 182 lb BMI 31.2 BP 142/87 H Blood Pressure Location Rt brachial Position Sitting Respiration 18 Pulse 80 Pulse Source Monitor Temp 97.2 F L Temperature Source Temporal Artery Pulse Oximetry (%) 96 Oxygen Delivery Method room air Comment weight per patient. Intake Visit Reasons: 4 wk fu Photo Manager Required: No DME Vendor: n/a Accompanied by: Significant Other Is patient in pain?: No Allergies meloxicam Allergy (Mild, Verified 04/06/25 13:50) Diarrhea Sulfa (Sulfonamide Antibiotics) (sulfa drugs) Allergy (Mild, Verified 04/06/25 13:50) Rash Medications ?Medication ?Instructions ?Recorded ?Confirmed ?Type albuterol sulfate 90 mcg/actuation 2 inh inhalation Q4 -6H PRN 01/07/25 04/06/25 History breath activated powder inhaler divalproex 500 mg tablet,delayed 500 mg PO BID 5 04/06/25 History release fluticasone 250 mcg-salmeterol 50 1 inh inhalation BID 01/07/25 04/06/25 History mcg/dose blistr powdr for inhalation levothyroxine 100 mcg capsule 100 mcg PO QDAY 01/07/25 04/06/25 History simvastatin 20 mg tablet 20 mg PO QHS 01/07/25 History sumatriptan succinate 50 mg tablet See Rx Instructions PO .COMPLEX 01/07/25 04/06/25 History verapamil 240 mg 24 hr 240 mg PO QAM 01/07/2504/06 History capsule,extended release losartan 50 mg tablet 50 mg PO DAILY blood pressur e 03/02/25 04/06/25 History omeprazole 20 mg tablet,delayed 20 mg PO BID #60 tabs 03/02/25 04/06/25 Rx release fluoxetine 20 mg capsule 40 mg PO QDAY 04/06/2504/06 History prednisone 20 mg tablet 20 mg PO QDAY #10 tabs 04/0604/06/25 Rx PFSH Medical History Mixed hyperlipidemia Migraines Cyclothymic disorder Hypertension Ground glass opacity present on imaging of lung Leukocytosis Hypothyroidism Wheezing Surgical History Previous section Family History Maternal Grandmother Alzheimer dementia CAD (coronary artery disease) Glaucoma Uncle Aneurysm CAD (coronary artery disease) Glaucoma Hypertension Uncle Colon cancer CAD (coronary artery disease) Mother CHF (congestive heart failure) Diabetes Hypertension Hyperlipidemia Father CHF (congestive heart failure) Hyperlipidemia Prostate cancer Aunt Glaucoma Hypertension Sister CAD (coronary artery disease) Social History Smoking Status: Never smoker alcohol intake: never substance use type: does not use caffeine: No Questionnaire [place] Sleepiness Scale [place] Sleepiness Scale Sitting and readin = Would never doze Watching TV: 0 = Would never doze Sitting inactive in public places such as theater or meeting (only at night): 1 = Slight chance of dozing Sitting as a passenger in a car for an hour without a break: 3 = High chance of dozing Lying down to rest in the afternoon when circumstances permit: 3 = High chance of dozing Sitting and talking with someone: 0 = Would never doze In a car, while stopped for a few minutes in traffic: 0 = Would never doze [place] Sleepiness Scale Total Score: 7 Review of Systems Resp Respiratory: Yes as per HPI Exam Const Constitutional: Positive conversant, cooperative, in no acute respiratory distress, well developed, well nourished and good hygiene Head Head: Yes normocephalic and Yes atraumatic Eyes Eye: Positive clear conjunctiva; Negative nystagmus or scleral abnormality Ears Ear: Positive hearing normal and external ears normal Nose Nose: Yes external nose normal Mouth Mouth: Positive oral mucosae normal and posterior oropharynx is adequate; Negative no lesions Neck Neck: Positive normal visual inspection and trachea midline; Negative lymphadenopathy Chest Wall Chest: Positive symmetric chest movement Normal AP diameter. Resp lung sounds: Positive diminished lung sounds (Expiratory phase), wheezes (On expiration) and prolonged expiratory time; Negative wheeze present on forced exhalation, rhonchi or rales Cardio Cardiac: Positive regular rate, regular rhythm, S1 normal and S2 normal; Negative murmur, rub or gallop GI GI: Positive normal to inspection Genitourinary: Positive deferred Musc Musculoskeletal: Positive steady gait Skin Pulmonary Skin Exam: Positive intact; Negative lesion, rash, ulcers or dermal atrophy Pulses Pulse: Yes radial pulses present Extremities Extremities: Yes capillary refill normal, No clubbing, No cyanosis and No edema Neuro Neurologic: Yes no focal neuro deficits, Yes conversant and Yes cooperative Psych Appearance: Positive grossly normal Mental Status: Positive mental status grossly normal Mood: Positive congruent mood Affect: Positive normal affect Office Procedures Niox Air Inflam Monitor NIOX Result NIOX: 39 Coding Level of Care Code Off vis,est,level 3 Diagnoses Shortness of breath R06.02 Chronic cough R05.3 04/06/25 1508 <Electronically signed by Mary bennett DISTRIBUTION AGENT-C> Date _ Mary Valdivia DISTRIBUTION AGENT-C Cosigner Signature: Date (if applicable) CC: ~ [facility] Work Phone: 1(472) 807-768807-31-2025 Evaluation note* Diagnosis Onset Date Resolution Status Admit Date Chronic cough chronic January 14, 2025 10:22am [facility] Work Phone: 1(524) 384-416707-31-2025 Evaluation note* Diagnosis Onset Date Resolution Status Admit Date Chronic cough chronic January 14, 2025 10:22am Chronic cough chronic February 152024 9:24am [facility] Work Phone: 1(233) 192-229007-31-2025 Evaluation note* Diagnosis Onset Date Resolution Status Admit Date Chronic cough chronic January 14, 2025 10:22am Chronic cough chronic February 152024 9:24am Shortness of breath acute Octob er 2024 1:36pm Chronic cough chronic March 1:36pm [facility] Work Phone: 1(604) 366-655906-16-2025 Evaluation + Plan note Future Scheduled Tests Radiology* CT Thorax w/o Contrast 11/30/24 [facility] 02-06-2025 Note* Exam Date Time Procedure Performing Provider Status 07/23/24 1:56 PM XR Chest 2 Views DWIGHT HU DO; [facility] (Verified) [id number] ORIGINAL EXAMINATION: TWO XRAY VIEWS OF THE CHEST 07/23/2024 1:57 pm COMPARISON: None. HISTORY: ORDERING SYSTEM PROVIDED HISTORY: Reason for Exam: cough, fever x 2 weeks FINDINGS: The lungs are without acute focal process. There is no effusion or pneumothorax. The cardiomediastinal silhouette is without acute process. The osseous structures are without acute process. IMPRESSION: No acute process. Interpreted by: Dwight Hu DO Preliminary Report By: Dwight Hu DO Electronically signed By Dwight Hu DO Dictated Date: 07/23/2024 3:24:36 PM Prelim Date: 07/23/2024 3:24:57 PM Sign Date: 07/23/2024 3:24:57 PM Ordering Provider: JOEL LAGOS [facility]08-15-2024 Note. MICRO - Microbiology PROCEDURE: Affirm Pathogens DNA Direct Probe [*1] SOURCE: Vaginal Fluid BODY SITE: Vaginal Wall COLLECTED DATE/TIME: 01/29/2024 11:33 EDT RECEIVED DATE/TIME: 01/29/2024 18:52 EDT START DATE/TIME: 01/29/2024 18:52 EDT FREE TEXT SOURCE: FINAL REPORTS Final Report [] Verified Date/Time/Personnel: 01/30/2024 09:21 EDT Gardnerella vaginalis DNA Probe Positive Trichomonas vaginalis DNA Probe Negative Jenifer species DNA Probe Negative Performing Locations *1: This test was performed at: [facility], [address] [place] [address], [facility] , [facility] ([place])07-23-2023 Evaluation + Plan note Future Scheduled Tests Laboratory* Hepatitis C Antibody IgG 07/23/23 Radiology* MA Mammo Screening Bilateral w/ Dirk 04/05/23 [facility] 10-20-2023 Evaluation + Plan note Future Scheduled Tests Radiology* MA Mammo Screening Bilateral w/ Dirk 04/05/23 [facility] 02-15-2022 Evaluation + Plan note Future Scheduled Tests Laboratory* Pathology Hematology Specialist Request 08/01/21 Radiology* XR Hip Minimum 2 Views Right 08/24/20 * XR Hand and Wrist 6 Views Right 09/14/20 [facility] 02-15-2022 Evaluation + Plan note Future Scheduled Tests Laboratory* Pathology Hematology Specialist Request 08/01/21 [facility] Evaluation noteNo assessment information available [facility] Work Phone: Evaluation note* Diagnosis Onset Date Resolution Status Admit Date Asthma acute January 14 10:22am Chronic cough chronic January 14, 2025 10:22am [facility] Work Phone: Hospital course Narrative No data available for this section [facility] Hospital Discharge instructions No data available for this section [facility] Progress note No data available for this section [facility] Reason for referral (narrative)No reason for [facility] Work Phone: Summary Purpose Family History Relationship Condition Age at Onset Recorded Date/T gera Not Specified Alzheimer's dementia Unknown Coronary artery disease Unknown Glaucoma Unknown uncle Aneurysm Unknown Hypertension Unknown uncle Malignant neoplasm of colon Unknown mother Congestive heart failure Unknown Diabetes mellitus Unknown Hyperlipidemia Unknown father Congestive heart failure Unknown Malignant neoplasm of prostate Unknown aunt Glaucoma Unknown sister Coronary artery disease Unknown Advance Directives No Advanced Directives Records FoundNo Advanced Directives Records FoundNo Advanced Directives Records FoundNo Advanced Directives Records Found Chief Complaint and Reason for Visit Chief Complaint THYROID MONITORING Chief Complaint Admit Date Chronic Cough January 14, 2025 10:2 2am Reason for Visit Admit Date Asthma January 14, 2025 10:2 2am Chronic cough January 14, 2025 10:2 2am Chief Complaint Admit Date Chronic Cough January 14, 2025 10:2 2am E-ORDER January 14, 2025 11:3 8am Reason for Visit Admit Date Chronic cough January 14, 2025 10:2 2am Chief Complaint Admit Date Chronic Cough January 14, 2025 10:2 2am E-ORDER January 14, 2025 11:3 8am 1 M FU March 02, 2025 9:24am Reason for Visit Admit Date Chronic cough January 14, 2025 10:2 2am Chronic cough March 02, 2025 9:24am Chief Complaint Admit Date Chronic Cough January 14, 2025 10:2 2am E-ORDER January 14, 2025 11:3 8am 1 M FU March 02, 2025 9:24am 4 wk fu April 06, 2025 1 :36pm Reason for Visit Admit Date Chronic cough January 14, 2025 10:2 2am Chronic cough March 02, 2025 9:24am Shortness of breath April 06, 2025 1 :36pm Chronic cough April 06, 2025 1 :36pm Additional Source Comments INFORMATION SOURCE (unrecogn ized section and content) DATE CREATED AUTHOR 01/04/2020 [facility] DATE CREATED AUTHOR AUTHOR'S ORGANIZ ATION 02/03/2024 [facility] ([place]) DATE CREATED AUTHOR AUTHOR'S ORGANIZ ATION 04/07/[address] [facility] DATE CREATED AUTHOR AUTHOR'S ORGANIZ ATION 04/21/2025 [facility] Care Team (unrecognized sect ion and content) Care Team Personnel Name: Kierra Abernathy Clerelvis Muniz PT Position: P3 Scheduling - Assembly Instructions Writer Advanced Member Role: Other Name: JOEL LAGOS [employer] Position: P4 Advanced Practice Nurse Member Role: Primary Care Physician Address: Address: [address] [place] [address]- [place] Care Team Related Persons Name: SAGAR ESPINOZA Care Teams (unrecognized sec tion and content) Team Status: Active Member Role Status Dates Joel Lagos DISTRIBUTION AGENT, DISTRIBUTION AGENT-C Family Provider Active Joel Lagos DISTRIBUTION AGENT, DISTRIBUTION AGENT-C Primary Care Provider Active Team Status: Inactive Member Role Status Dates Joel Lagos NP, DISTRIBUTION AGENT-C Primary Care Provider Active Dr. En Stockton MD Attending Provider, Referring Provider Active Team Status: Active Member Role/Relationship Status Dates Joel Lagos DISTRIBUTION AGENT, DISTRIBUTION AGENT-C Family Provider Active Joel Lagos DISTRIBUTION AGENT, DISTRIBUTION AGENT-C Primary Care Provider Active Team Status: Inactive Member Role/Relationship Status Dates Joel Lgaos DISTRIBUTION AGENT, DISTRIBUTION AGENT-C Primary Care Provider Active Start: January 14, 2025 End: January 14, 2025 Joel Lagos DISTRIBUTION AGENT, DISTRIBUTION AGENT-C Referring Provider Active Start: January 14, 2025 End: January 14, 2025 Dr. Akin Meredith DO Attending Provider Active S tart: January 14, 2025 End: January 14, 2025 Team Status: Inactive Member Role/Relationship Status Dates Joel Lagos NP, DISTRIBUTION AGENT-C Primary Care Provider Active Start: January 14, 2025 End: January 14, 2025 Dr. Akin Meredith DO Attending Provider Active S tart: January 14, 2025 End: January 14, 2025 Dr. Akin Meredith , Referring Provider Active S tart: January 14, 2025 End: January 14, 2025 Team Status: Inactive Member Role/Relationship Status Dates Joel Lagos DISTRIBUTION AGENT, DISTRIBUTION AGENT-C Primary Care Provider Active Start: March 02, 2025 End: March 02, 2025 Joel Lagos DISTRIBUTION AGENT, DISTRIBUTION AGENT-C Referring Provider Active Start: March 02, 2025 End: March 02, 2025 Mary Valdivia NP-C Attending Provider Active Start: March 02, 2025 End: March 02, 2025 Team Status: Active Member Role/Relationship Status Dates Joel Lagos DISTRIBUTION AGENT, DISTRIBUTION AGENT-C Primary care physician Active Team Status: Inactive Member Role/Relationship Status Dates Joel Lagos DISTRIBUTION AGENT, DISTRIBUTION AGENT-C Primary care physician Active Start: January 14, 2025 End: January 14, 2025 Joel Lagos DISTRIBUTION AGENT, DISTRIBUTION AGENT-C Referring Provider Active Start: January 14, 2025 End: January 14, 2025 Dr. Akin Meredith , Attending physician Active Start: January 14, 2025 End: January 14, 2025 Team Status: Inactive Member Role/Relationship Status Dates Joel Lagos NP, DISTRIBUTION AGENT-C Primary care physician Active Start: January 14, 2025 End: January 14, 2025 Dr. Akin Meredith DO Attending physician Active Start: January 14, 2025 End: January 14, 2025 Dr. Akin Meredith DO Referring Provider Active S tart: January 14, 2025 End: January 14, 2025 Team Status: Inactive Member Role/Relationship Status Dates Joel Lagos NP, DISTRIBUTION AGENT-C Primary care physician Active Start: March 02, 2025 End: March 02, 2025 Joel Lagos DISTRIBUTION AGENT, DISTRIBUTION AGENT-C Referring Provider Active Start: March 02, 2025 End: March 02, 2025 Mary Valdivia NP-C Attending physician Active Start: March 02, 2025 End: March 02, 2025 Team Status: Inactive Member Role/Relationship Status Dates Joel Lagos NP, DISTRIBUTION AGENT-C Primary care physician Active Start: April 06, 2025 End: April 06, 2025 Joel Lagos DISTRIBUTION AGENT, DISTRIBUTION AGENT-C Referring Provider Active Start: April 06, 2025 End: April 06, 2025 MAHOGANY AguilaC Attending physician Active Start: April 06, 2025 End: April 06, 2025 Goals (unrecognized section and content) Goals may be documented in a n alternate section FOR RECORDS PERTAINING TO PATIENTS WHO ARE OR HAVE BEEN ENROLLED IN A CHEMICAL DEPENDENCY/SUBSTANCEABUSE PROGRAM, SOME INFORMATION MAY BE OMITTED. This clinical summary was aggregated from multiple sources. Caution should be exercised in using it in the provision of clinical care. This summary normalizes information from multiple sources, and as a consequence, information in this document may materially change the coding, format and clinical context of patient data. In addition, data may be omitted in some cases. CLINICAL DECISIONS SHOULD BE BASED ON THE PRIMARY CLINICAL RECORDS. [employer] provides no warranty or guarantee of the accuracy or completeness of information in this document.
== END | disposition home or self-care (01) ==
PROVIDERS: PCP Nurse Practitioner Primary Care; Referring Provider Nurse Practitioner Family; Visit Provider Nurse Practitioner Family
DX: R06.02 Shortness of breath (principal); R94.31 Abnormal electrocardiogram [ECG] [EKG]
CPT/HCPCS: 93017; 93306; Q9957; A4216; C8929

== ENCOUNTER → 2025-05-10 | Outpatient (CLI) | payer SELFPAY ==
--- OUTSIDE RECORDS SUMMARY | 2025-05-10 18:00 | XMS RPT_ITS | CCD ---
Author Organization [facility] CliniSysd Care Team Providers Care Director Of Market Intelligence Name Role Phone DEMOND BELL TIER-CHANNEL MARKETING MANAGER, JOEL S Primary Care Physicia n Josemanuel PT, Cristy Unavailable Unavailable DEMOND BELL TIER-CHANNEL MARKETING MANAGER, JOEL S Primary Care Unava ilable DEMOND BELL TIER-CHANNEL MARKETING MANAGER, JOEL S Attending Unava ilable DEMOND BELL TIER-CHANNEL MARKETING MANAGER, JOEL S Primary Care Unava ilable DEMOND BELL TIER-CHANNEL MARKETING MANAGER, JOEL S Attending Unava ilable FRATENA BELL TIER-CHILDCARE PROVIDER, SAMMY Carmichael Attending Un available DEMOND BELL TIER-CHANNEL MARKETING MANAGER, JOEL S Primary Care Unava ilable DEMOND BELL TIER-CHANNEL MARKETING MANAGER, JOEL S Primary Care Unava ilable DEMOND BELL TIER-CHANNEL MARKETING MANAGER, JOEL S Attending Unava ilable Demond ELECTRO OPTICS ENGINEER-C, Joel Primary Care Provider Demond ELECTRO OPTICS ENGINEER-CHankJoel Referring Provider Dr. Akin Meredith DO Attending Provider [phone] Dr. Akin Meredith DO Referring Provider [phone] [facility] Attending Provider FRATENA BELL TIER-CHILDCARE PROVIDER, SAMMY Carmichael Attending Un available DEMOND BELL TIER-CHANNEL MARKETING MANAGER, JOEL S Primary Care Unava ilable DEMOND BELL TIER-CHANNEL MARKETING MANAGER, JOEL S Attending Unava ilable DEMOND BELL TIER-CHANNEL MARKETING MANAGER, JOEL S Primary Care Unava ilable DEMOND BELL TIER-CHANNEL MARKETING MANAGER, JOEL S Primary Care Unava ilable FRATENA BELL TIER-CHILDCARE PROVIDER, SAMMY A Attending Un available DEMOND BELL TIER-CHANNEL MARKETING MANAGER, JOEL S Attending Unava ilable DEMOND BELL TIER-CHANNEL MARKETING MANAGER, JOEL S Primary Care Unava ilable DEMOND BELL TIER-CHANNEL MARKETING MANAGER, JOEL S Attending Unava ilable DEMOND BELL TIER-CHANNEL MARKETING MANAGER, JOEL S Primary Care Unava ilable DEMOND BELL TIER-CHANNEL MARKETING MANAGER, JOEL S Attending Unava ilable DEMOND BELL TIER-CHANNEL MARKETING MANAGER, JOEL S Primary Care Unava ilable DEMOND BELL TIER-CHANNEL MARKETING MANAGER, JOEL S Attending Unava ilable DEMOND BELL TIER-CHANNEL MARKETING MANAGER, JOEL S Primary Care Unava ilable [place], Joel Referring Unavailable Mary Valdivia Attending Unavailable Demond, Joel Primary Care Unavailable Akin Meredith Attending Unavailable Akin Meredith Referring Unavailable Demond, Joel Primary Care Unavailable Demond, Joel Primary Care Unavailable Mary Valdivia Attending Unavailable Mary Valdivia Referring Unavailable [place], Joel Referring Unavailable Mary Valdivia Attending Unavailable Demond, Joel Primary Care Unavailable Demond, Joel Primary Care Unavailable [place], Joel Referring Unavailable Akin Meredith Attending Unavailable Demond ELECTRO OPTICS ENGINEER-CJoel Primary Care Physician [phone] Demond [facility] Rivera Referring Provider Dr. Akin Meredith DO Attending Physician [phone] Dr. Akin Meredith DO Referring Provider [phone] Mary Guajardo Attending Physician [phone] Allergies Allergy Classification Reported Allergen(s) Allergy Type Date of Onset Reaction(s) Facility (14 sources) meloxicam; Translations: [meloxicam] Drug Allergy 5 Diarrhea (finding) [facility] (10 sources) Sulfonamides (Antibiotic); Translations: [sulfa drugs] Drug allergy Eruption of skin (disorder) [facility] (4 sources) Sulfonamides (Antibiotic) Allergy to substance 5 Rash [facility] (1 source) meloxicam Drug Allergy 5 [facility] (1 source) Sulfonamides (Antibiotic) Drug allergy (disorder) 5 [facility] Medications Current Medications Medication [...] q4h, # 18 gram(s), 11 Refill(s), Pharmacy: [facility], Community acquired pneumonia Wheezing, 165, [...] wheezing, # 18 gram(s), 0 Refill(s), Pharmacy: [facility], Right lower lobe pneumonia, 165.8, cm, 01/12/22 [...] BID, # 60 gram(s), 0 Refill(s), Pharmacy: [facility], Cream, 165, cm, 01/29/24 10:49:00 [...] qDay, # 90 tab(s), 3 Refill(s), Pharmacy: [facility], 165, cm, 09/29/24 10:12:00 EDT, Height, kg, 09/29/24 10:12:00 EDT, Dosing Weight Start Date: 09/29/24 Status: Ordered Medication Dispense Status: Completed Quantity: 90.0 Unit: tab(s) Total Allowed Fills: 4 Fills Dispensed: 0 Start: 10-08-2023 End: 11-11-2024 levothyroxine 112 mcg (0.112 mg) oral tablet Dose : 112 mcg = 1 tab(s), Oral, qDay, # 100 tab(s), 3 Refill(s), Pharmacy: [facility], 165, cm, 07/23/23 7:21:00 EST, Height, kg, 07/23/23 7:21:00 EST, Dosing Weight Start Date: 10/08/23 Stop Date: 11/11/24 Status: Ordered Start: 06-13-2023 levothyroxine 112 mcg (0.112 mg) oral tablet Dose : 112 mcg = 1 tab(s), Oral, qDay, # 90 tab(s), 0 Refill(s), Pharmacy: [facility], 165, cm, 07/03/22 8:04:00 EST, Height, kg, 07/03/22 8:04:00 EST, Dosing Weight Start Date: 06/13/23 Status: Ordered Start: 03-05-2023 levothyroxine 112 mcg (0.112 mg) oral tablet Dose : 112 mcg = 1 tab(s), Oral, qDay, # 90 tab(s), 0 Refill(s), Pharmacy: [facility], 165, cm, 07/03/22 8:04:00 EST, Height, kg, 07/03/22 8:04:00 EST, Dosing Weight Start Date: 03/05/23 Status: Ordered Start: 12-04-2022 levothyroxine 112 mcg (0.112 mg) oral tablet Dose : 112 mcg = 1 tab(s), Oral, qDay, # 90 tab(s), 0 Refill(s), Pharmacy: [facility], 165, cm, 07/03/22 8:04:00 EST, Height Start [...] qDay, # 90 tab(s), 0 Refill(s), Pharmacy: [facility], 165, cm, 07/03/22 8:04:00 EST, Height, kg, 07/03/22 8:04:00 EST, Dosing Weight Start Date: 03/05/23 Status: Ordered Start: 12-04-2022 liothyronine 5 mcg oral tablet Dose : 5 mcg = 1 tab(s), Oral, qDay, # 90 tab(s), 0 Refill(s), Pharmacy: [facility], 165, cm, 07/03/22 8:04:00 EST, [...] qDay, # 90 tab(s), 3 Refill(s), Pharmacy: [facility], 165, cm, 09/29/24 10:12:00 EDT, [...] 0 Refill(s), 02/09/24 10:04:00 PM EDT, Pharmacy: [facility], 165, cm, 01/29/24 10:49:00 EDT, [...] qHS, # 90 tab(s), 3 Refill(s), Pharmacy: [facility], 165, cm, 07/23/23 7:21:00 EST, Height, kg, 07/23/23 7:21:00 EST, Dosing Weight Start Date: 07/23/23 Stop Date: 07/17/24 Status: Ordered Start: 07-18-2021 End: 06-28-2023 simvastatin 20 mg oral table t Dose : 20 mg = 1 tab(s), Oral, qHS, # 90 tab(s), 3 Refill(s), Pharmacy: [facility], 165, cm, 07/03/22 8:04:00 EST, [...] 3 Refill(s), 07/17/24 7:47:00 AM EST, Pharmacy: [facility], 165, cm, 07/23/23 7:21:00 EST, [...] hours, # 27 tab(s), 1 Refill(s), Pharmacy: [facility], 165, cm, 07/03/22 8:04:00 EST, [...] hours, # 27 tab(s), 0 Refill(s), Pharmacy: [place] [facility], 165, cm, 07/18/21 8:42:00 EST, Height, kg, [...] qAM, # 90 tab(s), 3 Refill(s), Pharmacy: [facility], 165, cm, 09/29/24 10:12:00 EDT, [...] qAM, # 90 tab(s), 3 Refill(s), Pharmacy: [facility], 165, cm, 07/23/23 7:21:00 EST, [...] qAM, # 90 tab(s), 3 Refill(s), Pharmacy: [facility], 165, cm, 07/03/22 8:04:00 EST, [...] qAM, # 90 tab(s), 3 Refill(s), Pharmacy: [facility], 165, cm, 07/18/21 8:42:00 EST, [...] qDay, # 90 tab(s), 3 Refill(s), Pharmacy: [facility], 165, cm, 07/23/23 7:21:00 EST, Height, kg, 07/23/23 7:21:00 EST, Dosing Weight Start Date: 07/23/23 Stop Date: 07/17/24 Status: Ordered Start: 07-18-2021 End: 06-28-2023 lisinopril 20 mg oral tablet Dose : 20 mg = 1 tab(s), Oral, qDay, # 90 tab(s), 3 Refill(s), Pharmacy: [facility], 165, cm, 07/03/22 8:04:00 EST, [...] Facility Pulmonary Visit Reporton Pulmonary Visit Report [facility] Pulmonary Medicine [address] [place] [address] OFFICE VISIT Date of Service: 04/06/25 MR#: [id number] Acct: [id number] Name: MEGAN ESPINOZA Rep #: [id number] : 1970 Provider: Mary Valdivia NP Age/Sex: 55/F [place] [facility] [place] Status: Signed Assessment and Plan Assessment and [...] These 2 tests were previously ordered through [employer] system but the patient is self pay and [employer] is not giving them prices. (2) Chronic [...] Additional Comments: This note was generated with [employer] dictation software. It may contain incorrect words, [...] The patient is employed working as an registrar assistant at a shelter facility. She does not currently keep any animals as pets in her home environment. Prior pulmonary function studies completed through [facility] in September 2024 demonstrated no evidence of [...] reports carol (more content not included)... Normal [facility] Pulmonary Visit Reporton Pulmonary Visit Report [facility] Pulmonary Medicine [address] [place] [address] OFFICE VISIT Date of Service: 03/02/25 MR#: [id number] Acct: [id number] Name: MEGAN ESPINOZA Rep #: [id number] : 1970 Provider: Mary Valdivia NP Age/Sex: 55/F [place] [facility] [place] Status: Signed Assessment and Plan Assessment and [...] Additional Comments: This note was generated with [employer] dictation software. It may contain incorrect words, [...] The patient is employed working as an registrar assistant at a shelter facility. She does not currently keep any animals as pets in her home environment. Prior pulmonary function studies completed through [facility] in September 2024 demonstrated no evidence of an obstructive ventila (more content not included)... Normal [facility] FT4on 01-26-2025 Free T4 [Mass/Vol] 0.85 ng/dL Normal 0.76-1.46 [facility] Comment on above: Performed By: #### T , FT4 #### [place] [address] LABORATORYOrdered By: SYSTEM SYSTEM on 01-26-2025 25-hydroxyvitamin D3 [Mass/Vol] 28.6 ng/mL Invalid Interpretation Code AO [facility] Comment on above: Interpretive Data: I nterpretive Values Based on Total 25(OH) Vitamin D: Deficient <20 ng/mL Insufficient 20 - <30 ng/mL Sufficient 30-100 ng/mL Free T4 [Mass/Vol] 0.85 ng/dL Normal 0.76 - 1.46 ng/dL AO ADM SS TSH Qn 0.93 m[IU]/L Normal 0.36 - 3.74 mcIU/mL AO ADM SS TSHon 01-26-2025 TSH Qn 0.93 m[IU]/L Normal 0.36-3.74 [facility] Comment on above: Performed By: #### T , FT4 #### [place] [address] VIDHon 01-26-2025 Vit. D 25-Hydroxy 28.6 ng/mL Normal [facility] Comment on above: Result Comment: Inte rpretive Values Based on Total 25(OH) Vitamin D: Deficient <20 ng/mL Insufficient 20 - <30 ng/mL Sufficient 30-100 ng/mL Performed By: #### V IDH #### [facility] [address] [place], [place] [address] ANCAon 01-20-2025 Atypical pANCA <1:20 Normal Neg:<1:20 [facility] Comment on above: Result Comment: The atypical pANCA pattern has been observed in a significant percentage of patients with ulcerative colitis, primary sclerosing cholangitis and autoimmune hepatitis. Performed By: #### L 100.0100, L3200.1600, L3300.1200, L5500.0700, L3500.3600 #### [facility] [address] [place], [place], [phone] ([phone] Cytoplasmic Ab <1:20 Normal Neg:<1:20 [facility] Comment on above: Performed By: #### L 100.0100, L3200.1600, L3300.1200, L5500.0700, L3500.3600 #### [facility] [address] [place], [address] Perinuclear Ab. <1:20 Normal Neg:<1:20 [facility] Comment on above: Result Comment: The presence of positive fluorescence exhibiting P-ANCA or C-ANCA patterns alone is not specific for the diagnosis of Jo's Granulomatosis (WG) or microscopic polyangiitis. Decisions about treatment should not be based solely on ANCA IFA results. The [employer] ANCA [employer] Consensus recommends follow up testing of positive sera with both AZ- 3 and MPO-ANCA enzyme immunoassays. As many as 5% serum samples are positive only by EIA. Ref. AM J Clin Pathol 1999;111:507-513. Performed By: #### L 100.0100, L3200.1600, L3300.1200, L5500.0700, L3500.3600 #### [facility] [address] [place], [address] Allergen Resp. Area 5on 08-0 ALTERNARIA TEN <0.10 Normal Class 0 [facility] Comment on above: Order Comment: Reaso n for Exam: chronic cough Performed By: #### L 100.0100, L3200.1600, L3300.1200, L5500.0700, L3500.3600 #### [facility] [address] [place], [address] JESUS, WHITE <0.10 Normal Class 0 [facility] Comment on above: Order Comment: Reaso n for Exam: chronic cough Performed By: #### L 100.0100, L3200.1600, L3300.1200, L5500.0700, L3500.3600 #### [facility] [address] [place], [address] ASPERGILLUS FUM <0.10 Normal Class 0 [facility] Comment on above: Order Comment: Reaso n for Exam: chronic cough Performed By: #### L 100.0100, L3200.1600, L3300.1200, L5500.0700, L3500.3600 #### [facility] [address] [place], [address] BERMUDA GRASS <0.10 Normal Class 0 [facility] Comment on above: Order Comment: Reaso n for Exam: chronic cough Performed By: #### L 100.0100, L3200.1600, L3300.1200, L5500.0700, L3500.3600 #### [facility] [address] [place], [address] BIRCH <0.10 Normal Class 0 [facility] Comment on above: Order Comment: Reaso n for Exam: chronic cough Performed By: #### L 100.0100, L3200.1600, L3300.1200, L5500.0700, L3500.3600 #### [facility] [address] [place], [address] BLACK WALNUT <0.10 Normal Class 0 [facility] Comment on above: Order Comment: Reaso n for Exam: chronic cough Performed By: #### L 100.0100, L3200.1600, L3300.1200, L5500.0700, L3500.3600 #### [facility] [address] [place], [place], [phone] CAT HAIR/DANDER <0.10 Normal Class 0 [facility] Comment on above: Order Comment: Reaso n for Exam: chronic cough Performed By: #### L 100.0100, L3200.1600, L3300.1200, L5500.0700, L3500.3600 #### [facility] [address] [place], [place], [id number] CLADOSPOR HERB <0.10 Normal Class 0 [facility] Comment on above: Order Comment: Reaso n for Exam: chronic cough Performed By: #### L 100.0100, L3200.1600, L3300.1200, L5500.0700, L3500.3600 #### [facility] [address] [place], [place], [phone] COCKROACH,AMER <0.10 Normal Class 0 [facility] Comment on above: Order Comment: Reaso n for Exam: chronic cough Performed By: #### L 100.0100, L3200.1600, L3300.1200, L5500.0700, L3500.3600 #### [facility] [address] [place], [place], [id number] COMMENT Comment Normal . [facility] Comment on above: Order Comment: [...] L 100.0100, L3200.1600, L3300.1200, L5500.0700, L3500.3600 #### [facility] [address] [place], [address] COTTONWOOD <0.10 Normal Class 0 [facility] Comment on above: Order Comment: Reaso n for Exam: chronic cough Performed By: #### L 100.0100, L3200.1600, L3300.1200, L5500.0700, L3500.3600 #### [facility] [address] [place], [place], [facility] D FARINAE MITE <0.10 Normal Class 0 [facility] Comment on above: Order Comment: Reaso n for Exam: chronic cough Performed By: #### L 100.0100, L3200.1600, L3300.1200, L5500.0700, L3500.3600 #### [facility] [address] [place], [place], [facility] D PTERONYSSINUS <0.10 Normal Class 0 [facility] Comment on above: Order Comment: Reaso n for Exam: chronic cough Performed By: #### L 100.0100, L3200.1600, L3300.1200, L5500.0700, L3500.3600 #### [facility] [address] [place], [place], [facility] DOG EPITHELIA <0.10 Normal Class 0 [facility] Comment on above: Order Comment: Reaso n for Exam: chronic cough Performed By: #### L 100.0100, L3200.1600, L3300.1200, L5500.0700, L3500.3600 #### [facility] [address] [place], [place], [facility] ELM,AMER WHITE <0.10 Normal Class 0 [facility] Comment on above: Order Comment: Reaso n for Exam: chronic cough Performed By: #### L 100.0100, L3200.1600, L3300.1200, L5500.0700, L3500.3600 #### [facility] [address] [place], [address] IMMUNOGLOB E 5 IU/mL Low 6-495 [facility] Comment on above: Order Comment: Reaso n for Exam: chronic cough Performed By: #### L 100.0100, L3200.1600, L3300.1200, L5500.0700, L3500.3600 #### [facility] [address] [place], [address] MAPLE/BOX ELDER <0.10 Normal Class 0 [facility] Comment on above: Order Comment: Reaso n for Exam: chronic cough Performed By: #### L 100.0100, L3200.1600, L3300.1200, L5500.0700, L3500.3600 #### [facility] [address] [place], [address] MOUNTAIN CEDAR <0.10 Normal Class 0 [facility] Comment on above: Order Comment: Reaso n for Exam: chronic cough Performed By: #### L 100.0100, L3200.1600, L3300.1200, L5500.0700, L3500.3600 #### [facility] [address] [place], [address] Mouse Urine <0.10 Normal Class 0 [facility] Comment on above: Order Comment: Reaso n for Exam: chronic cough Performed By: #### L 100.0100, L3200.1600, L3300.1200, L5500.0700, L3500.3600 #### [facility] [address] [place], [address] MULBERRY,WHITE <0.10 Normal Class 0 [facility] Comment on above: Order Comment: Reaso n for Exam: chronic cough Performed By: #### L 100.0100, L3200.1600, L3300.1200, L5500.0700, L3500.3600 #### [facility] [address] [place], [address] OAK, WHITE <0.10 Normal Class 0 [facility] Comment on above: Order Comment: Reaso n for Exam: chronic cough Performed By: #### L 100.0100, L3200.1600, L3300.1200, L5500.0700, L3500.3600 #### [facility] [address] [place], [place], [facility] PECAN <0.10 Normal Class 0 [facility] Comment on above: Order Comment: Reaso n for Exam: chronic cough Performed By: #### L 100.0100, L3200.1600, L3300.1200, L5500.0700, L3500.3600 #### [facility] [address] [place], [place], [facility] PEN NOTATUM <0.10 Normal Class 0 [facility] Comment on above: Order Comment: Reaso n for Exam: chronic cough Performed By: #### L 100.0100, L3200.1600, L3300.1200, L5500.0700, L3500.3600 #### [facility] [address] [place], [address] PIGWEED, ROUGH <0.10 Normal Class 0 [facility] Comment on above: Order Comment: Reaso n for Exam: chronic cough Performed By: #### L 100.0100, L3200.1600, L3300.1200, L5500.0700, L3500.3600 #### [facility] [address] [place], [place], [facility] RAGWEED SH/COM <0.10 Normal Class 0 [facility] Comment on above: Order Comment: Reaso n for Exam: chronic cough Performed By: #### L 100.0100, L3200.1600, L3300.1200, L5500.0700, L3500.3600 #### [facility] [address] [place], [address] CITIZEN [place] THISTLE <0.10 Normal Class 0 [facility] Comment on above: Order Comment: Reaso n for Exam: chronic cough Performed By: #### L 100.0100, L3200.1600, L3300.1200, L5500.0700, L3500.3600 #### [facility] [address] [place], [place], [id number] SHEEP SORREL <0.10 Normal Class 0 [facility] Comment on above: Order Comment: Reaso n for Exam: chronic cough Result Comment: Perf ormed at: [facility] [id number] Post Framer: Priscilla Butler MD, Phone: [phone] Performed By: #### L 100.0100, L3200.1600, L3300.1200, L5500.0700, L3500.3600 #### [facility] [address] [place], [place], [id number] SYCAMORE, AMER <0.10 Normal Class 0 [facility] Comment on above: Order Comment: Reaso n for Exam: chronic cough Performed By: #### L 100.0100, L3200.1600, L3300.1200, L5500.0700, L3500.3600 #### [facility] [address] [place], [place], [id number] WU GRASS <0.10 Normal Class 0 [facility] Comment on above: Order Comment: Reaso n for Exam: chronic cough Performed By: #### L 100.0100, L3200.1600, L3300.1200, L5500.0700, L3500.3600 #### [facility] [address] [place], [address] Aspergillus Antibodieson Asp. flavus Negative Normal Neg:<1:1 [facility] Comment on above: Performed By: #### L 100.0100, L3200.1600, L3300.1200, L5500.0700, L3500.3600 #### [facility] [address] [place], [address] Asp. fumigatus Negative Normal Neg:<1:1 [facility] Comment on above: Performed By: #### L 100.0100, L3200.1600, L3300.1200, L5500.0700, L3500.3600 #### [facility] [address] [place], [address] Asp. niger Negative Normal Neg:<1:1 [facility] Comment on above: Performed By: #### L 100.0100, L3200.1600, L3300.1200, L5500.0700, L3500.3600 #### [facility] [address] [place], [address] Immunoglobulin Reinaldo 5 IMMUNOGLOB E QN 5 IU/mL Low 6-495 [facility] Comment on above: Result Comment: Perf ormed at: - [facility] [id number] Post Framer: Russ Verma PhD, Phone: [phone] Performed at: [facility] [id number] Post Framer: Priscilla Butler MD, Phone: [phone] Performed By: #### L 100.0100, L3200.1600, L3300.1200, L5500.0700, L3500.3600 #### [facility] [address] [place], [address] Absolute lymphocyte countOrd ered By: Akin Meredith on 01-14-2025 Lymphocytes Auto (Unsp spec) [#/Vol] 2.84 10*3/uL 0.83-4.51 [facility] Absolute neutrophil countOrd ered By: Akin Meredith on 01-14-2025 Neutrophils (Bld) [#/Vol] 5.4 10*3/uL 2.0-7.7 [facility] Automated lymphocyte count a s percentage of total leukocytesOrdered By: Akin Meredith on 01-14-2025 Lymphocytes/100 WBC Auto (Unsp spec) 31.3 % 19-41 [facility] Basophil percentageOrdered B y: Akin Meredith on 01-14-2025 Basophils/100 WBC (Bld) 0.6 % 0-1 [facility] CBC W/Diff, Automatedon 12-17-2024 Absolute Lymph 2.84 X10 3/uL Normal 0.83-4.51 [facility] Comment on above: Performed By: #### L 100.0100, L3200.1600, L3300.1200, L5500.0700, L3500.3600 #### [facility] [address] [place], [address] Absolute Neut 5.4 X10 3/uL Normal 2.0-7.7 [facility] Comment on above: Performed By: #### L 100.0100, L3200.1600, L3300.1200, L5500.0700, L3500.3600 #### [facility] [address] [place], [address] Basophils/100 WBC (Bld) 0.6 % Normal 0-1 [facility] Comment on above: Performed By: #### L 100.0100, L3200.1600, L3300.1200, L5500.0700, L3500.3600 #### [facility] [address] [place], [address] Eosinophils/100 WBC (Bld) 1.2 % Normal 0-5 [facility] Comment on above: Performed By: #### L 100.0100, L3200.1600, L3300.1200, L5500.0700, L3500.3600 #### [facility] [address] [place], [address] Erythrocyte distribution width (RBC) [Ratio] 13.2 % Normal 11.6-14.6 [facility] Comment on above: Performed By: #### L 100.0100, L3200.1600, L3300.1200, L5500.0700, L3500.3600 #### [facility] [address] [place], [address] Hematocrit (Bld) [Volume fraction] 44.6 % Normal 37-47 [facility] Comment on above: Performed By: #### L 100.0100, L3200.1600, L3300.1200, L5500.0700, L3500.3600 #### [facility] [address] [place], [address] Hemoglobin (Bld) [Mass/Vol] 14.6 g/dL Normal 12.0-15. 0 [facility] Comment on above: Performed By: #### L 100.0100, L3200.1600, L3300.1200, L5500.0700, L3500.3600 #### [facility] [address] [place], [address] IG% 0.400 Normal 0.0-0.9 [facility] Comment on above: Result Comment: IG% - Immature Granulocytes (promyelocytes, myelocytes and metamyelocytes) > 1% indicates that a LEFT SHIFT is Present. Performed By: #### L 100.0100, L3200.1600, L3300.1200, L5500.0700, L3500.3600 #### [facility] [address] [place], [address] Lymphocytes/100 WBC (Bld) 31.3 % Normal 19-41 [facility] Comment on above: Performed By: #### L 100.0100, L3200.1600, L3300.1200, L5500.0700, L3500.3600 #### [facility] [address] [place], [address] MCH (RBC) [Entitic mass] 29.3 pg Normal 27.0-32.0 [facility] Comment on above: Performed By: #### L 100.0100, L3200.1600, L3300.1200, L5500.0700, L3500.3600 #### [facility] [address] [place], [address] MCHC (RBC) [Mass/Vol] 32.7 g/dL Normal 32-36 [facility] Comment on above: Performed By: #### L 100.0100, L3200.1600, L3300.1200, L5500.0700, L3500.3600 #### [facility] [address] [place], [address] MCV (RBC) [Entitic vol] 89.4 fL Normal 81-99 [facility] Comment on above: Performed By: #### L 100.0100, L3200.1600, L3300.1200, L5500.0700, L3500.3600 #### [facility] [address] [place], [address] Monocytes/100 WBC (Bld) 7.6 % Normal 0-10 [facility] Comment on above: Performed By: #### L 100.0100, L3200.1600, L3300.1200, L5500.0700, L3500.3600 #### [facility] [address] [place], [address] Neutrophils/100 WBC (Bld) 58.9 % Normal 47-70 [facility] Comment on above: Performed By: #### L 100.0100, L3200.1600, L3300.1200, L5500.0700, L3500.3600 #### [facility] [address] [place], [address] Nucleated RBC (Bld) [#/Vol] 0 10*3/uL Normal 0-5 [facility] Comment on above: Performed By: #### L 100.0100, L3200.1600, L3300.1200, L5500.0700, L3500.3600 #### [facility] [address] [place], [address] Platelet mean volume (Bld) [Entitic vol] 9.3 fL Normal 6.2-12.0 [facility] Comment on above: Performed By: #### L 100.0100, L3200.1600, L3300.1200, L5500.0700, L3500.3600 #### [facility] [address] [place], [address] Platelets (Bld) [#/Vol] 370 10*3/uL Normal 150-450 [facility] Comment on above: Performed By: #### L 100.0100, L3200.1600, L3300.1200, L5500.0700, L3500.3600 #### [facility] [address] [place], [address] RBC (Bld) [#/Vol] 4.99 10*6/uL Normal 4.2-5.4 [facility] Comment on above: Performed By: #### L 100.0100, L3200.1600, L3300.1200, L5500.0700, L3500.3600 #### [facility] [address] [place], [address] RDW SD 43.5 fl Normal 35.1-43.9 [facility] Comment on above: Performed By: #### L 100.0100, L3200.1600, L3300.1200, L5500.0700, L3500.3600 #### [facility] [address] [place], [address] WBC (Bld) [#/Vol] 9.1 10*3/uL Normal 4.4-11.0 [facility] Comment on above: Performed By: #### L 100.0100, L3200.1600, L3300.1200, L5500.0700, L3500.3600 #### [facility] [address] [place], [address] Eosinophil percentageOrdered By: Akin Meredith on 01-14-2025 Eosinophils/100 WBC (Bld) 1.2 % 0-5 [facility] Erythrocyte distribution wid th ratioOrdered By: Akin Meredith on 01-14-2025 Erythrocyte distribution width (RBC) [Ratio] 13.2 % 11.6-14.6 [facility] Erythrocyte distribution wid th standard deviationOrdered By: Akin Meredith on 01-14-2025 Erythrocyte distribution width (RBC) [Ratio] 43.5 fl 35.1-43.9 [facility] Hematocrit Auto (Bld) [Volum e fraction]Ordered By: Akin Meredith on 01-14-2025 Hematocrit (Bld) [Volume fraction] 44.6 % 37-47 [facility] Hemoglobin measurementOrdere d By: Akin Meredith on 01-14-2025 Hemoglobin (Bld) [Mass/Vol] 14.6 g/dL 12.0-15. 0 [facility] IgEOrdered By: Akin rodriguez n 01-14-2025 IgE 5 IU/mL Low 6-495 [facility] Comment on above: Performed at: [address] [id number] Director: Russ Verma PhD, Phone: [phone] at: [facility] [address] [id number] Director: Priscilla Butler MD, Phone: [phone] Immature granulocytes/100 WB C Auto (Bld)Ordered By: Akin Meredith on 01-14-2025 Immature granulocytes/100 WBC (Bld) 0.400 % 0.0-0.9 [facility] Comment on above: IG% - Immature Granu locytes (promyelocytes, myelocytes and metamyelocytes) > 1% indicates that a LEFT SHIFT is Present. MCV (mean corpuscular volume ) determinationOrdered By: Akin Meredith on 01-14-2025 MCV (RBC) [Entitic vol] 89.4 fL 81-99 [facility] Mean corpuscular hemoglobin (MCH) determinationOrdered By: Akin Meredith 01-14-2025 MCH (RBC) [Entitic mass] 29.3 pg 27.0-32.0 [facility] Mean corpuscular hemoglobin concentration (MCHC) determinationOrdered By: Akin Meredith 01-14-2025 MCHC (RBC) [Mass/Vol] 32.7 g/dL 32-36 [facility] Mean platelet volume determi nationOrdered By: Akin Meredith on 01-14-2025 Platelet mean volume (Bld) [Entitic vol] 9.3 fL 6.2-12.0 [facility] Monocyte percentageOrdered B y: Akin Meredith on 01-14-2025 Monocytes/100 WBC (Bld) 7.6 % 0-10 [facility] Neutrophil percentageOrdered By: Akin Meredith on 01-14-2025 Neutrophils/100 WBC (Bld) 58.9 % 47-70 [facility] No Panel InformationOrdered By: Akin Meredith on 01-14-2025 RAST Comment Comment . [facility] Comment on above: Levels of [...] RBC/100 WBC (Bld) [Ratio] 0 % 0-5 [facility] Platelet countOrdered By: Monsalve on 01-14-2025 Platelets (Bld) [#/Vol] 370 10*3/uL 150-450 [facility] Pulmonary Visit Reporton Pulmonary Visit Report [facility] [place] [address] [place] [address]. [address] [place] [address] OFFICE VISIT Date of Service: 01/14/25 MR#: [id number] Acct: [id number] Name: MEGAN ESPINOZA Rep #: [id number] : 1970 Provider: Dr. Akin Meredith DO Age/Sex: 55/F [place] [facility] [place] Status: Signed Assessment and Plan Assessment and [...] The patient is employed working as an registrar assistant at a shelter facility. She does not currently keep any [...] drip. Prior pulmonary function studies completed through [facility] in September 2024 demonstrated no evidence of an obstructive ventilatory impairment. There was no significant bronchodilator response. Lung volumes and diffusing capacity were normal. CT chest without contrast from September 2024 apparently demonstrated tree-in-bud opacities in the right upper lobe. The patient then went on to have a repeat CT chest completed in December 2024 which demonstrate (more content not included)... Normal [facility] RBC Auto (Bld) [#/Vol]Ordere d By: Akin Meredith on 01-14-2025 RBC (Bld) [#/Vol] 4.99 10*6/uL 4.2-5.4 [facility] Serum Danish sycamore IgE antibody assay (units/volume)Ordered By: Akin Meredith on 01-14-2025 [place] IgE Qn (S) <0.10 kU/L Class 0 [facility] Serum Aspergillus flavus ant ibody detection by immunodiffusionOrdered By: Akin Meredith on 01-14-2025 A. flavus Ab Immune diff Ql (S) Negative Neg:<1:1 [facility] Serum Aspergillus fumigatus IgE antibody assay (units/volume)Ordered By: Akin Meredith on 01-14-2025 A. fumigatus IgE Qn (S) <0.10 kU/L Class 0 [facility] Serum Aspergillus fumigatus antibody detection by immunodiffusionOrdered By: Akin Meredith on 01-14-2025 A. fumigatus Ab Immune diff Ql (S) Negative Neg:<1:1 [facility] Serum Aspergillus niger anti body detection by immunodiffusionOrdered By: Akin Meredith on 01-14-2025 A. niger Ab Immune diff Ql (S) Negative Neg:<1:1 [facility] Serum Bermuda grass IgE anti body assay (units/volume)Ordered By: Akin Meredith on 01-14-2025 Bermuda grass IgE Qn (S) <0.10 kU/L Class 0 [facility] Serum Cladosporium herbarum IgE antibody assay (units/volume)Ordered By: Akin Meredith on 01-14-2025 C. herbarum IgE Qn (S) <0.10 kU/L Class 0 [facility] Serum Dermatophagoides ptero nyssinus specific IgE antibody assay (units/volume)Ordered By: Akin Meredith on 01-14-2025 house dust mite IgE Qn (S) <0.10 kU/L Class 0 [facility] Serum Fraxinus americana IgE antibody assay (units/volume)Ordered By: Akin Meredith on 01-14-2025 White Jesus IgE Qn (S) <0.10 kU/L Class [address] [facility] Serum Rumex acetosella IgE a ntibody assay (units/volume)Ordered By: Akin Meredith on 01-14-2025 [place] IgE Qn (S) <0.10 kU/L Class 0 [facility] Comment on above: Performed at: [address] [id number] Director: Priscilla Butler MD, Phone: [phone] Serum black walnut IgE antib lj assay (units/volume)Ordered By: Akin Meredith on 01-14-2025 Black [place] IgE Qn (S) <0.10 kU/L Class 0 [facility] Serum classic neutrophil cyt oplasmic antibody assay (units/volume)Ordered By: Akin Meredith on 01-14-2025 Neutrophil cytoplasmic Ab.classic Qn (S) <1:20 titer Neg:<1:20 [facility] Serum cottonwood IgE antibod y assay (units/volume)Ordered By: Akin Meredith on 01-14-2025 [place] IgE Qn (S) <0.10 kU/L Class 0 [facility] Serum dog epithelium IgE ant ibody assay (units/volume)Ordered By: Akin Meredith on 01-14-2025 Dog epithelium IgE Qn (S) <0.10 kU/L Class 0 [facility] Serum perinuclear neutrophil cytoplasmic antibody titer by immunofluorescenceOrdered By: Akin Meredith on 01-14-2025 Neutrophil cytoplasmic Ab.perinuclear IF (S) [Titer] <1:20 titer Neg:<1:20 [facility] Comment on above: The presence of posi tive fluorescence exhibiting P-ANCA orC-ANCA patterns alone is not specific for the diagnosis ofWegener's Granulomatosis (WG) or microscopic polyangiitis.Decisions about treatment should not be based solely onANCA IFA results. The International ANCA Group Consensusrecommends follow up testing of positive sera with both AZ-3 and MPO-ANCA enzyme immunoassays. As many as 5% serumsamples are positive only by EIA. Ref. AM J Clin [id number];111:507-513. Serum wu IgE antibody a ssay (units/volume)Ordered By: Akin Meredith on 01-14-2025 Wu IgE Qn (S) <0.10 kU/L Class 0 [facility] Serum white elm IgE antibody assay (units/volume)Ordered By: Akin Meredith on 01-14-2025 White [place] IgE Qn (S) <0.10 kU/L Class [address] [facility] Serum white mulberry IgE ant ibody assay (units/volume)Ordered By: Akin Meredith on 01-14-2025 White mulberry IgE Qn (S) <0.10 kU/L Class 0 [facility] White blood cell (WBC) count Ordered By: Akin Meredith on 01-14-2025 WBC (Bld) [#/Vol] 9.1 10*3/uL 4.4-11.0 [facility] CT THORAX W/O CONTRASTon CT THORAX W/O [...] 09/28/2024 11:56:42 AM Ordering Provider: JOEL Queen [facility] .Auto Diffon 09-22-2024 Basophil, Absolute 0.0 10 3/mcL Normal 0.0-0.3 [facility] Comment on above: Performed By: #### V IDH, ANEU, VALPR, TSH, ADIFF, GFR, CMP, CBC #### [address] [address] Basophils/100 WBC (Bld) 0.2 % Normal 0.0-2.5 [facility] Comment on above: Performed By: #### V IDH, ANEU, VALPR, TSH, ADIFF, GFR, CMP, CBC #### [address] [address] Eosinophil, Absolute 0.1 10 3/mcL Normal 0.0-0.7 [facility] Comment on above: Performed By: #### V IDH, ANEU, VALPR, TSH, ADIFF, GFR, CMP, CBC #### [address] [address] Eosinophils/100 WBC (Bld) 0.5 % Normal 0.0-6.0 [facility] Comment on above: Performed By: #### V IDH, ANEU, VALPR, TSH, ADIFF, GFR, CMP, CBC #### [address] [address] Lymphocyte, Absolute 2.9 10 3/mcL Normal 0.9-4.3 [facility] Comment on above: Performed By: #### V IDH, ANEU, VALPR, TSH, ADIFF, GFR, CMP, CBC #### [address] [address] Lymphocytes/100 WBC (Bld) 18.9 % Low 20.0-40.0 [facility] Comment on above: Performed By: #### V IDH, ANEU, VALPR, TSH, ADIFF, GFR, CMP, CBC #### [address] [address] Monocyte, Absolute 1.0 10 3/mcL Normal 0.1-1.4 [facility] Comment on above: Performed By: #### V IDH, ANEU, VALPR, TSH, ADIFF, GFR, CMP, CBC #### [address] [address] Monocytes/100 WBC (Bld) 6.4 % Normal 2.0-13.0 [facility] Comment on above: Performed By: #### V IDH, ANEU, VALPR, TSH, ADIFF, GFR, CMP, CBC #### [address] [address] Neutrophils/100 WBC (Bld) 74.0 % Normal 50.0-75.0 [facility] Comment on above: Performed By: #### V IDH, ANEU, VALPR, TSH, ADIFF, GFR, CMP, CBC #### [address] [address] .GFRon 09-22-2024 Estimated Glomerular Filtration Rate 107 ml/min/1.73sqm Normal [facility] Comment on above: Result Comment: Stages of [...] results. Performed By: #### V IDH #### [address] [address] .NEUABSon 09-22-2024 Neutrophil, Absolute 11.3 10 3/mcL High 2.3-8.1 [facility] Comment on above: Performed By: #### V IDH, ANEU, VALPR, TSH, ADIFF, GFR, CMP, CBC #### [address] [address] CBCon 09-22-2024 Erythrocyte distribution width (RBC) [Ratio] 14.4 % Normal 11.5-15.5 [facility] Comment on above: Performed By: #### V IDH, ANEU, VALPR, TSH, ADIFF, GFR, CMP, CBC #### [address] [address] Hematocrit (Bld) [Volume fraction] 44.6 % Normal 34.0-46.0 [facility] Comment on above: Performed By: #### V IDH, ANEU, VALPR, TSH, ADIFF, GFR, CMP, CBC #### [place] [address] Hgb 14.8 G/dL Normal 12.0-16.0 [facility] Comment on above: Performed By: #### V IDH, ANEU, VALPR, TSH, ADIFF, GFR, CMP, CBC #### [address] [address] MCH (RBC) [Entitic mass] 29.3 pg Normal 27.0-33.0 [facility] Comment on above: Performed By: #### V IDH, ANEU, VALPR, TSH, ADIFF, GFR, CMP, CBC #### [address] [address] MCHC 33.2 G/dL Normal 32.0-36.0 [facility] Comment on above: Performed By: #### V IDH, ANEU, VALPR, TSH, ADIFF, GFR, CMP, CBC #### [address] [address] MCV (RBC) [Entitic vol] 88.2 fL Normal 80.0-99.0 [facility] Comment on above: Performed By: #### V IDH, ANEU, VALPR, TSH, ADIFF, GFR, CMP, CBC #### [address] [address] Platelet 387 10 3/mcL Normal 150-450 [facility] Comment on above: Performed By: #### V IDH, ANEU, VALPR, TSH, ADIFF, GFR, CMP, CBC #### [address] [address] Platelet mean volume (Bld) [Entitic vol] 7.2 fL Normal 6.6-10.5 [facility] Comment on above: Performed By: #### V IDH, ANEU, VALPR, TSH, ADIFF, GFR, CMP, CBC #### [address] [address] RBC 5.06 10 6/mcL Normal 4.10-5.30 [facility] Comment on above: Performed By: #### V IDH, ANEU, VALPR, TSH, ADIFF, GFR, CMP, CBC #### [address] [address] WBC 15.2 10 3/mcL High 4.5-10.8 [facility] Comment on above: Performed By: #### V IDH, ANEU, VALPR, TSH, ADIFF, GFR, CMP, CBC #### [address] [address] CMPon 09-22-2024 Albumin Level 3.7 G/dL Normal 3.5-5.0 [facility] Comment on above: Performed By: #### V IDH, ANEU, VALPR, TSH, ADIFF, GFR, CMP, CBC #### [address] [address] Albumin/Globulin [Mass ratio] 1.0 {ratio} Low 1.1-2.5 [facility] Comment on above: Performed By: #### V IDH, ANEU, VALPR, TSH, ADIFF, GFR, CMP, CBC #### [address] [address] ALP [Catalytic activity/Vol] 95 U/L Normal 40-135 [facility] Comment on above: Performed By: #### V IDH, ANEU, VALPR, TSH, ADIFF, GFR, CMP, CBC #### [address] [address] ALT [Catalytic activity/Vol] 58 U/L Normal 14-59 [facility] Comment on above: Performed By: #### V IDH, ANEU, VALPR, TSH, ADIFF, GFR, CMP, CBC #### [address] [address] AST [Catalytic activity/Vol] 21 U/L Normal 10-40 [facility] Comment on above: Performed By: #### V IDH, ANEU, VALPR, TSH, ADIFF, GFR, CMP, CBC #### [address] [address] Bili Total 0.4 mg/dL Normal 0.2-1.0 [facility] Comment on above: Result Comment: Use of this assay is not recommended for patients undergoing treatment with eltrombopag due to the potential for falsely elevated results. Performed By: #### V IDH, ANEU, VALPR, TSH, ADIFF, GFR, CMP, CBC #### [address] [address] BUN/Creatinine Ratio 18 ratio Normal 7-27 [facility] Comment on above: Performed By: #### V IDH, ANEU, VALPR, TSH, ADIFF, GFR, CMP, CBC #### [address] [address] Calcium [Mass/Vol] 9.2 mg/dL Normal 8.4-10.2 [facility] Comment on above: Performed By: #### V IDH, ANEU, VALPR, TSH, ADIFF, GFR, CMP, CBC #### [address] [address] Chloride [Moles/Vol] 103 mmol/L Normal 98-107 [facility] Comment on above: Performed By: #### V IDH, ANEU, VALPR, TSH, ADIFF, GFR, CMP, CBC #### [address] [address] CO2 [Moles/Vol] 30 mmol/L High 22-29 [facility] Comment on above: Performed By: #### V IDH, ANEU, VALPR, TSH, ADIFF, GFR, CMP, CBC #### [address] [address] Creatinine [Mass/Vol] 0.60 mg/dL Normal 0.55-1.02 [facility] Comment on above: Result Comment: Test ing performed on Linked[employer] Dimension EXL analyzer using a modified kinetic Sadi technique. Performed By: #### V IDH, ANEU, VALPR, TSH, ADIFF, GFR, CMP, CBC #### [place] [address] Electrolyte Balance 9.0 mEq/L Normal 4.0-15.0 [facility] Comment on above: Performed By: #### V IDH, ANEU, VALPR, TSH, ADIFF, GFR, CMP, CBC #### [address] [address] Globulin 3.8 G/dL Normal 1.5-3.8 [facility] Comment on above: Performed By: #### V IDH, ANEU, VALPR, TSH, ADIFF, GFR, CMP, CBC #### [address] [address] Glucose [Mass/Vol] 104 mg/dL Normal 70-105 [facility] Comment on above: Performed By: #### V IDH, ANEU, VALPR, TSH, ADIFF, GFR, CMP, CBC #### [address] [address] Potassium [Moles/Vol] 3.5 mmol/L Normal 3.5-5.1 [facility] Comment on above: Performed By: #### V IDH, ANEU, VALPR, TSH, ADIFF, GFR, CMP, CBC #### [address] [address] Sodium [Moles/Vol] 142 mmol/L Normal 136-145 [facility] Comment on above: Performed By: #### V IDH, ANEU, VALPR, TSH, ADIFF, GFR, CMP, CBC #### [place] [address] Total Protein 7.5 G/dL Normal 6.4-8.2 [facility] Comment on above: Performed By: #### V IDH, ANEU, VALPR, TSH, ADIFF, GFR, CMP, CBC #### [place] [address] Urea nitrogen [Mass/Vol] 11 mg/dL Normal 7-18 [facility] Comment on above: Performed By: #### V IDH, ANEU, VALPR, TSH, ADIFF, GFR, CMP, CBC #### [place] [address] TSHon 09-22-2024 TSH Qn 0.21 m[IU]/L Low 0.36-3.74 [facility] Comment on above: Performed By: #### V IDH, ANEU, VALPR, TSH, ADIFF, GFR, CMP, CBC #### [place] [address] VALPRon 09-22-2024 LDose Valproic Acid: Unknown Normal [facility] Comment on above: Performed By: #### V IDH #### [place] [address] Valproic Acid Lvl 51 mcg/mL Normal 50-100 [facility] Comment on above: Performed By: #### V IDH #### [place] [address] VIDHon 09-22-2024 Vit. D 25-Hydroxy 21.9 ng/mL Normal [facility] Comment on above: Result Comment: Inte rpretive Values Based on Total 25(OH) Vitamin D: Deficient <20 ng/mL Insufficient 20 - <30 ng/mL Sufficient 30-100 ng/mL Performed By: #### V IDH, ANEU, VALPR, TSH, ADIFF, GFR, CMP, CBC #### [place] [address] XR CHEST 2 VIEWSon XR CHEST 2 [...] 07/23/2024 3:24:57 PM Ordering Provider: JOEL LAGOS [facility] No Panel InformationOrdered By: Edgar Wilkins on 01-29-2024 Affirm Pathogens DNA Direct Probe Gardnerella vaginalis DNA Probe Positive Trichomonas vaginalis DNA Probe Negative Jenifer species DNA Probe Negative [facility] VALPRon 09-27-2023 LDose Valproic Acid: Unknown Normal [facility] ([place]) Comment on above: Performed By: #### V HODA YUAN #### [address] [address] Valproic Acid Lvl 80 mcg/mL Normal 50-100 [facility] ([place]) Comment on above: Performed By: #### V ALPAlirio VIDH #### [address] [address] VIDHon 09-27-2023 Vit. D 25-Hydroxy 20.2 ng/mL Normal [facility] ([place]) Comment on above: Result Comment: Inte rpretive Values Based on Total 25(OH) Vitamin D: Deficient <20 ng/mL Insufficient 20 - <30 ng/mL Sufficient 30-100 ng/mL Performed By: #### V ALPAlirio, VIDH #### [address] [address] .Auto Diffon 09-03-2023 Basophil, Absolute 0.0 10 3/mcL Normal 0.0-0.2 [facility] ([place]) Comment on above: Performed By: #### T SH, FT4, LIPID, ADIFF, CMP, GFR, ANEU, CBC #### [address] [address] Basophils/100 WBC (Bld) 0.5 % Normal 0.0-2.5 [facility] ([place] Comment on above: Performed By: #### T SH, FT4, LIPID, ADIFF, CMP, GFR, ANEU, CBC #### [address] [address] Eosinophil, Absolute 0.1 10 3/mcL Normal 0.0-0.4 [facility] ([place]) Comment on above: Performed By: #### T SH, FT4, LIPID, ADIFF, CMP, GFR, ANEU, CBC #### [address] [address] Eosinophils/100 WBC (Bld) 1.0 % Normal 0.0-7.0 [facility] ([place]) Comment on above: Performed By: #### T SH, FT4, LIPID, ADIFF, CMP, GFR, ANEU, CBC #### [address] [address] Lymphocyte, Absolute 3.1 10 3/mcL Normal 0.8-3.9 [facility] ([place] Comment on above: Performed By: #### T SH, FT4, LIPID, ADIFF, CMP, GFR, ANEU, CBC #### [address] [address] Lymphocytes/100 WBC (Bld) 34.6 % Normal 10.0-50.0 [facility] ([place] Comment on above: Performed By: #### T SH, FT4, LIPID, ADIFF, CMP, GFR, ANEU, CBC #### [address] [address] Monocyte, Absolute 0.8 10 3/mcL Normal 0.2-1.0 [facility] ([place]) Comment on above: Performed By: #### T SH, FT4, LIPID, ADIFF, CMP, GFR, ANEU, CBC #### [address] [address] Monocytes/100 WBC (Bld) 8.6 % Normal 1.7-13.0 [facility] ([place] Comment on above: Performed By: #### T SH, FT4, LIPID, ADIFF, CMP, GFR, ANEU, CBC #### [address] [address] Neutrophils/100 WBC (Bld) 55.3 % Normal 37.0-80.0 [facility] ([place] Comment on above: Performed By: #### T SH, FT4, LIPID, ADIFF, CMP, GFR, ANEU, CBC #### [address] [address] .GFRon 09-03-2023 GFR Non- 82 ml/min/1.73sqm Normal [facility] ([place]) Comment on above: Result Comment: GFR Population [...] Performed By: #### V ALPAlirio, VIMORAIMA #### [address] [address] GFR 100 ml/min/1.73sqm Normal [facility] ([place]) Comment on above: Result Comment: GFR Population [...] Performed By: #### V KWABENA VIMORAIMA #### [address] [address] .NEUABSon 09-03-2023 Neutrophil, Absolute 5.0 10 3/mcL Normal 2.9-6.2 [facility] ([place] Comment on above: Performed By: #### T SH, FT4, LIPID, ADIFF, CMP, GFR, ANEU, CBC #### [place] [address] CBCon 09-03-2023 Erythrocyte distribution width (RBC) [Ratio] 13.9 % Normal 11.5-14.5 [facility] ([place] Comment on above: Performed By: #### T SH, FT4, LIPID, ADIFF, CMP, GFR, ANEU, CBC #### [place] [address] Hematocrit (Bld) [Volume fraction] 43.5 % Normal 37.0-47.0 [facility] ([place] Comment on above: Performed By: #### T SH, FT4, LIPID, ADIFF, CMP, GFR, ANEU, CBC #### [place] [address] Hgb 14.8 G/dL Normal 12.0-16.0 [facility] ([place] Comment on above: Performed By: #### T SH, FT4, LIPID, ADIFF, CMP, GFR, ANEU, CBC #### [place] [address] MCH (RBC) [Entitic mass] 30.2 pg Normal 27.0-31.2 [facility] ([place] Comment on above: Performed By: #### T SH, FT4, LIPID, ADIFF, CMP, GFR, ANEU, CBC #### [place] [address] MCHC 34.1 G/dL Normal 33.0-37.0 [facility] ([place] Comment on above: Performed By: #### T SH, FT4, LIPID, ADIFF, CMP, GFR, ANEU, CBC #### [address] [address] MCV (RBC) [Entitic vol] 88.6 fL Normal 80.0-94.0 [facility] ([place] Comment on above: Performed By: #### T SH, FT4, LIPID, ADIFF, CMP, GFR, ANEU, CBC #### [address] [address] Platelet 296 10 3/mcL Normal 130-400 [facility] ([place] Comment on above: Performed By: #### T SH, FT4, LIPID, ADIFF, CMP, GFR, ANEU, CBC #### [address] [address] Platelet mean volume (Bld) [Entitic vol] 7.8 fL Normal 7.4-10.4 [facility] ([place] Comment on above: Performed By: #### T SH, FT4, LIPID, ADIFF, CMP, GFR, ANEU, CBC #### [address] [address] RBC 4.91 10 6/mcL Normal 4.20-5.40 [facility] ([place] Comment on above: Performed By: #### T SH, FT4, LIPID, ADIFF, CMP, GFR, ANEU, CBC #### [address] [address] WBC 9.1 10 3/mcL Normal 4.6-10.8 [facility] ([place] Comment on above: Performed By: #### T SH, FT4, LIPID, ADIFF, CMP, GFR, ANEU, CBC #### [address] [address] CMPon 09-03-2023 Albumin Level 3.5 G/dL Normal 3.5-5.0 [facility] ([place] Comment on above: Performed By: #### T SH, FT4, LIPID, ADIFF, CMP, GFR, ANEU, CBC #### [address] [address] Albumin/Globulin [Mass ratio] 0.9 {ratio} Low 1.1-2.5 [facility] ([place] Comment on above: Performed By: #### T SH, FT4, LIPID, ADIFF, CMP, GFR, ANEU, CBC #### [address] [address] ALP [Catalytic activity/Vol] 78 U/L Normal 40-135 [facility] ([place] Comment on above: Performed By: #### T SH, FT4, LIPID, ADIFF, CMP, GFR, ANEU, CBC #### [place] [address] ALT [Catalytic activity/Vol] 33 U/L Normal 14-59 [facility] ([place] Comment on above: Performed By: #### T SH, FT4, LIPID, ADIFF, CMP, GFR, ANEU, CBC #### [place] [address] AST [Catalytic activity/Vol] 17 U/L Normal 10-40 [facility] ([place] Comment on above: Performed By: #### T SH, FT4, LIPID, ADIFF, CMP, GFR, ANEU, CBC #### [address] [address] Bili Total 0.3 mg/dL Normal 0.2-1.0 [facility] ([place]) Comment on above: Result Comment: Use of this assay is not recommended for patients undergoing treatment with eltrombopag due to the potential for falsely elevated results. Performed By: #### T SH, FT4, LIPID, ADIFF, CMP, GFR, ANEU, CBC #### [place] [address] BUN/Creatinine Ratio 22 ratio Normal 7-27 [facility] ([place]) Comment on above: Performed By: #### T SH, FT4, LIPID, ADIFF, CMP, GFR, ANEU, CBC #### [address] [address] Calcium [Mass/Vol] 9.3 mg/dL Normal 8.4-10.2 [facility] ([place]) Comment on above: Performed By: #### T SH, FT4, LIPID, ADIFF, CMP, GFR, ANEU, CBC #### [address] [address] Chloride [Moles/Vol] 102 mmol/L Normal 98-107 [facility] ([place] Comment on above: Performed By: #### T SH, FT4, LIPID, ADIFF, CMP, GFR, ANEU, CBC #### [address] [address] CO2 [Moles/Vol] 26 mmol/L Normal 22-29 [facility] ([place] Comment on above: Performed By: #### T SH, FT4, LIPID, ADIFF, CMP, GFR, ANEU, CBC #### [place] [address] Creatinine [Mass/Vol] 0.74 mg/dL Normal 0.55-1.02 [facility] ([place]) Comment on above: Performed By: #### T SH, FT4, LIPID, ADIFF, CMP, GFR, ANEU, CBC #### [place] [address] Electrolyte Balance 11.0 mEq/L Normal 4.0-15.0 [facility] ([place]) Comment on above: Performed By: #### T SH, FT4, LIPID, ADIFF, CMP, GFR, ANEU, CBC #### [address] [address] Globulin 3.8 G/dL Normal [facility] ([place] Comment on above: Performed By: #### T SH, FT4, LIPID, ADIFF, CMP, GFR, ANEU, CBC #### [place] [address] Glucose [Mass/Vol] 71 mg/dL Normal 70-105 [facility] ([place] Comment on above: Performed By: #### T SH, FT4, LIPID, ADIFF, CMP, GFR, ANEU, CBC #### [address] [address] Potassium [Moles/Vol] 4.4 mmol/L Normal 3.5-5.1 [facility] ([place]) Comment on above: Performed By: #### T SH, FT4, LIPID, ADIFF, CMP, GFR, ANEU, CBC #### [address] [address] Sodium [Moles/Vol] 139 mmol/L Normal 136-145 [facility] ([place] Comment on above: Performed By: #### T SH, FT4, LIPID, ADIFF, CMP, GFR, ANEU, CBC #### [place] [address] Total Protein 7.3 G/dL Normal 6.4-8.2 [facility]) Comment on above: Performed By: #### T SH, FT4, LIPID, ADIFF, CMP, GFR, ANEU, CBC #### [place] [address] Urea nitrogen [Mass/Vol] 16 mg/dL Normal 7-18 [facility]) Comment on above: Performed By: #### T SH, FT4, LIPID, ADIFF, CMP, GFR, ANEU, CBC #### [address] [address] FT4on 09-03-2023 Free T4 [Mass/Vol] 1.17 ng/dL Normal 0.76-1.46 [facility] ([place] Comment on above: Performed By: #### T SH, FT4, LIPID, ADIFF, CMP, GFR, ANEU, CBC #### [address] [address] LABORATORYOrdered By: SYSTEM SYSTEM on 09-03-2023 Albumin [...] 09-03-2023 Cholesterol [Mass/Vol] 196 mg/dL Normal 0-200 [facility] [place] Comment on above: Result Comment: Chol esterol Reference Interval: Less than 200 Desirable 200-239 Borderline high risk 240 and above High risk Performed By: #### V ALPAlirio, FRANCOISE #### [address] [address] Cholesterol in HDL [Mass/Vol] 42 mg/dL Normal 40-60 [facility] ([place] Comment on above: Performed By: #### V ALPAlirio, FRANCOISE #### [address] [address] Cholesterol in LDL [Mass/Vol] 104 mg/dL Normal 0-130 [facility] ([place]) Comment on above: Performed By: #### V KWABENA, FRANCOISE #### [address] [address] Triglyceride [Mass/Vol] 251 mg/dL High 0-150 [facility] ([place] Comment on above: Result Comment: Trig lyceride Reference Interval: Less than 150 Normal 150-199 Borderline high risk 200-499 High risk 500 or higher Very high risk Performed By: #### V KWABENA, VIMORAIMA #### [address] [address] TSHon 09-03-2023 TSH Qn 0.31 m[IU]/L Low 0.36-3.74 [facility] ([place]) Comment on above: Performed By: #### T SH, FT4, LIPID, ADIFF, CMP, GFR, ANEU, CBC #### [address] [address] [place] MAMMOGRAM SCREENING BILAT ERAL W/TOMOon 04-08-2023 MA MAMMOGRAM SCREENING BILATERAL W/DIRK ORIGINAL FROM: [address] [address] PROCEDURE FOR: MEGAN ESPINOZA [address] [place] [address] Home: PID#: [id number] Exam#: [id number] : 1970 Age: 53 TO: JOEL LAGOS BELL TIER [facility] [address], [place] [address] Fax: NO FAX EXAMINATION: SCREENING DIGITAL BILATERAL [...] addition to annual mammographic screening per the [place] [employer]. BIRADS: MAMMOGRAM BI-RADS: 2: Benign finding RECALL: 1 year screening RECALL TYPE: mammo LETTER SENT: Normal BI-RADS 1 and 2 Interpreted by: Kyle Cruz MD Preliminary Report By: Kyle Cruz MD Electronically signed By Kyle Cruz MD Dictated Date: 04/08/2023 4:47:02 PM Prelim Date: 04/08/2023 4:56:41 PM Sign Date: 04/08/2023 4:56:41 PM Ordering Provider: JOEL LAGOS Dye Can Operator: GUERO MATTHEW RT(R) (M) letter sent: Normal BI-RADS 1 and 2 Mammogram BI-RADS: 2 Benign Normal [facility] ([place]) Basophil percentageOrdered B y: Dr. Stockton on 10-08-2022 Bilirubin [Mass/Vol] 0.20 mg/dL 0.20-1.00 [facility] Comment on above: For patients on eltr ombopag therapy, use of Dimension Ennis TBIL is not recommended. Protein [Mass/Vol] 7.4 g/dL 6.4-8.2 [facility] WBC (Bld) [#/Vol] 7.0 10*3/uL 4.4-11.0 [facility] Blood erythrocytes count (nu mber/volume)Ordered By: Dr. Stockton on 10-08-2022 RBC (Bld) [#/Vol] 4.98 10*6/uL 4.2-5.4 [facility] Blood hemoglobin measurement (mass/volume)Ordered By: Dr. Stockton on 10-08-2022 Hemoglobin (Bld) [Mass/Vol] 14.5 g/dL 12.0-15. 0 [facility] Blood platelet mean volumeOr dered By: Dr. Stockton on 10-08-2022 Platelet mean volume (Bld) [Entitic vol] 9.1 fL 6.2-12.0 [facility] Determination of erythrocyte mean corpuscular volume (MCV)Ordered By: Dr. Stockton on 10-08-2022 MCV (RBC) [Entitic vol] 93.2 fL 81-99 [facility] Direct bilirubinOrdered By: Dr. Stockton on 10-08-2022 Bilirubin.direct [Mass/Vol] 0.09 mg/dL 0.00-0.3 0 [facility] Hematocrit Auto (Bld) [Volum e fraction]Ordered By: Dr. Stockton on 10-08-2022 Hematocrit (Bld) [Volume fraction] 46.4 % 37-47 [facility] Laboratory - Chemistry and C hemistry - challengeOrdered By: Dr. Stockton on 10-08-2022 ALP [Catalytic activity/Vol] 88 U/L 45-117 [facility] ALT [Catalytic activity/Vol] 31 U/L 13-56 [facility] Free T4 [Mass/Vol] 1.06 ng/dL 0.76-1.46 [facility] Globulin (S) [Mass/Vol] 4.1 g/dL 2.2-4.2 [facility] Laboratory - Hematology and Cell countsOrdered By: Dr. Stockton on 10-08-2022 Erythrocyte distribution width (RBC) [Entitic vol] 44.2 fL 35.1-43.9 [facility] Erythrocyte distribution width (RBC) [Ratio] 13.0 % 11.6-14.6 [facility] MCH (RBC) [Entitic mass] 29.1 pg 27.0-32.0 [facility] MCHC Auto (RBC) [Mass/Vol]Or dered By: Dr. Stockton on 10-08-2022 MCHC (RBC) [Mass/Vol] 31.3 g/dL 32-36 [facility] No Panel InformationOrdered By: Dr. Stockton on 10-08-2022 Free Triiodothyronine (T3) pg/dL 2.7 pg/mL 2.18-3.98 [facility] Thyroid Stimulating Hormone (TSH) 0.10 uIU/mL 0.358-3.74 [facility] Valproic Acid (Depakene) Level 98 ug/mL 50-100 [facility] Platelets bldOrdered By: Dr. Stockton on 10-08-2022 Platelets (Bld) [#/Vol] 255 10*3/uL 150-450 [facility] Serum or plasma albumin rick urement (mass/volume)Ordered By: Dr. Stockton on 10-08-2022 Albumin [Mass/Vol] 3.3 g/dL 3.2-5.0 [facility] Thin prep Papanicolaou smear with manual screeningOrdered By: Dr. Stockton on 10-08-2022 Thin prep Papanicolaou smear with manual screening 16 U/L 15-37 [facility] LABORATORYOrdered By: SYSTEM SYSTEM on 07-17-2022 [...] 12-09-2019 Lab Specimen Source Nasal, Nasopharyngeal Normal [facility] Comment on above: Performed By: #### C VCLA #### [facility] [address] [place] [address] CORONAVIRUS 2019,PCR NOT DETECTED Normal Not Detected [facility] Comment on above: Result Comment: This assay [...] patient management decisions. Fact sheet for providers: https://www.fda.gov/media/686534/download Fact sheet for patients: https://www.fda.gov/media/976499/download This test has received FDA Emergency Use Authorization (EUA) and has been verified by [facility] ([facility]). This test is only authorized for the duration of time that circumstances exist to justify the authorization of the emergency use of in vitro diagnostic tests for the detection of SARS-CoV-2 virus and/or diagnosis of COVID-19 infection under section 564(b)(1) of the Act, 21 U.S.C. 360bbb-3(b)(1), unless the authorization is terminated or revoked sooner. [facility] ([facility]) is certified under CLIA-88 as qualified to perform high complexity testing. This tests analytical performance characteristics have been determined by [facility]. Testing is performed at [facility] is located at [address] [place] [address] (CLIA License #[id number], CAP #[id number]). Performed By: #### C VCLA #### [facility] [address] [place] [address] Vital Signs Date Time Vital Sign Value Performing Clinician Hannah garcia 04-06-2025 12:25-0400 Body height 162.56 cm Joel Lagos [employer] ENGINEER-C Work Phone: [facility] 04-06-2025 12:25-0400 Body mass index (BMI) [Ratio] 31.2 kg/m2 Joel Lagos [employer] ENGINEER-C Work Phone: [facility] 04-06-2025 12:25-0400 Body temperature 97.2 [degF] Joel Lagos [employer] ENGINEER-C Work Phone: [facility] 04-06-2025 12:25-0400 Body weight 82.55 kg Joel Lagos [employer] ENGINEER-C Work Phone: [facility] 04-06-2025 12:25-0400 Diastolic blood pressure 87 mm[Hg] Joel Lagos [employer] ENGINEER-C Work Phone: [facility] 04-06-2025 12:25-0400 Heart rate 80 /min Joelcamron Lagos [employer] ENGINEER-C Work Phone: [facility] 04-06-2025 12:25-0400 Respiratory rate 18 /min Joel Lagos [employer] ENGINEER-C Work Phone: [facility] 04-06-2025 12:25-0400 SaO2% (BldA) [Mass fraction] 96 % Joel Lagos [employer] ENGINEER-C Work Phone: [facility] 04-06-2025 12:25-0400 Systolic blood pressure 142 mm[Hg] Joel Lagos [employer] ENGINEER-C Work Phone: [facility] 03-02-2025 08:09-0400 Body mass index (BMI) [Ratio] 30.9 kg/m2 Joel Lagos [employer] ENGINEER-C Work Phone: [facility] 03-02-2025 08:09-0400 Body temperature 97.1 [degF] Joel Cloverdale [employer] ENGINEER-C Work Phone: [facility] 03-02-2025 08:09-0400 Body weight 81.64 kg Joel Cloverdale [employer] ENGINEER-C Work Phone: [facility] 03-02-2025 08:09-0400 Diastolic blood pressure 74 mm[Hg] Joel Demond [employer] ENGINEER-C Work Phone: [facility] 03-02-2025 08:09-0400 Heart rate 80 /min Joel Cloverdale [employer] ENGINEER-C Work Phone: [facility] 03-02-2025 08:09-0400 Respiratory rate 18 /min Joel Demond [employer] ENGINEER-C Work Phone: [facility] 03-02-2025 08:09-0400 SaO2% (BldA) [Mass fraction] 99 % Joelcamron Beckettmer [employer] ENGINEER-C Work Phone: [facility] 03-02-2025 08:09-0400 Systolic blood pressure 137 mm[Hg] Joel Cloverdale [employer] ENGINEER-C Work Phone: [facility] 01-14-2025 10:37-0400 Body height 162.56 cm Joel Beckettmer [employer] ENGINEER-C Work Phone: [facility] 01-14-2025 10:37-0400 Body mass index (BMI) [Ratio] 31.1 kg/m2 Joel Lagos [employer] ENGINEER-C Work Phone: [facility] 01-14-2025 10:37-0400 Body temperature 95.6 [degF] Joel Lagos [employer] ENGINEER-C Work Phone: [facility] 01-14-2025 10:37-0400 Body weight 82.15 kg Joel Lagos [employer] ENGINEER-C Work Phone: [facility] 01-14-2025 10:37-0400 Diastolic blood pressure 83 mm[Hg] Joel Lagos [employer] ENGINEER-C Work Phone: [facility] 01-14-2025 10:37-0400 Heart rate 78 /min Joel Beckettmer [employer] ENGINEER-C Work Phone: [facility] 01-14-2025 10:37-0400 Respiratory rate 18 /min Joel Beckettmer [employer] ENGINEER-C Work Phone: [facility] 01-14-2025 10:37-0400 SaO2% (BldA) [Mass fraction] 95 % Joel Beckettmer [employer] ENGINEER-C Work Phone: [facility] 01-14-2025 10:37-0400 Systolic blood pressure 138 mm[Hg] Joel Lagos [employer] ENGINEER-C Work Phone: [facility] Encounters Encounter Date Encounter Type Care Provider Facility Start: 05-03-2025 ambulatory Joel Demond Facility :[facility] Start: 04-06-2025 End: 04-06-2025 Patient encounter procedure [facility] [facility] Start: 04-06-2025 End: 04-06-2025 ambulatory Joel Demond Facility[facility] Start: 04-06-2025 ambulatory JOEL BECKETTRory ER BELL TIER-CHANNEL MARKETING MANAGER Facility:[facility] Start: 03-02-2025 End: 03-02-2025 Patient encounter procedure E[employer] ENGINEER Mary Valdivia [facility] Work Phone: Start: 03-02-2025 End: 03-02-2025 ambulatory Joel Beckettmer [employer] ENGINEER-C Work Phone: [facility] Start: 01-26-2025 End: 01-26-2025 ambulatory JOEL BECKETTMER BELL TIER-CHANNEL MARKETING MANAGER Facility:[facility] Start: 01-26-2025 End: 01-26-2025 Patient encounter procedure JOEL Duval DEMOND BELL TIER-CHANNEL MARKETING MANAGER [facility] Start: 01-14-2025 End: 01-14-2025 ambulatory Joel Beckettmer [employer] ENGINEER-C Work Phone: -Laboratory Start: 01-14-2025 End: 01-14-[address] Akin Meredith DO -Laboratory Work Phone: Start: 01-14-2025 End: 01-14-[address] Akin Meredith DO -[facility] Work Phone: Start: 01-14-2025 End: 01-14-2025 ambulatory Joel Lagos [employer] ENGINEER-C Work Phone: -[facility] Start: 01-14-2025 End: 01-14-2025 ambulatory Akin Meredith Facility:[facility] Start: 09-28-2024 End: 09-28-2024 ambulatory JOEL Mukund BECKETTDEMOND BELL TIER-CHANNEL MARKETING MANAGER Facility:[facility] Start: 09-22-2024 End: 09-22-2024 ambulatory SAMMYLALO LIUA BELL TIER-CHILDCARE PROVIDER Facility:[facility] Start: 07-23-2024 End: 07-23-2024 ambulatory JOEL Mukund DEMOND BELL TIER-CHANNEL MARKETING MANAGER Facility:[facility] Start: 07-23-2024 End: 07-23-2024 Patient encounter procedure JOEL S DEMOND BELL TIER-CHANNEL MARKETING MANAGER [facility] Start: 01-29-2024 End: 02-02-2024 ambulatory JOEL S DEMOND BELL TIER-CHANNEL MARKETING MANAGER Facility:[facility] Start: 01-29-2024 End: 02-02-2024 Outreach Lab JOEL Mukund DEMOND BELL TIER-CHANNEL MARKETING MANAGER [facility] Start: 09-27-2023 End: 09-27-2023 ambulatory SAMMY A NOEA BELL TIER-CHILDCARE PROVIDER Facility:[facility] Start: 09-03-2023 End: 09-03-2023 ambulatory JOEL S DEMOND BELL TIER-CHANNEL MARKETING MANAGER Facility:[facility] Start: 09-03-2023 End: 09-03-2023 Patient encounter procedure JOEL S DEMOND BELL TIER-CHANNEL MARKETING MANAGER [facility] Start: 04-08-2023 End: 04-08-2023 ambulatory JOEL S DEMOND BELL TIER-CHANNEL MARKETING MANAGER Facility:[facility] Start: 04-08-2023 End: 04-08-2023 Patient encounter procedure JOEL Duval DEMOND BELL TIER-CHANNEL MARKETING MANAGER [facility] Start: 12-31-2022 End: 12-31-2022 Patient encounter procedure PHY WO ID REFERRING [facility] Start: 10-08-2022 End: 10-08-2022 ambulatory [facility] Work Phone: Start: 10-08-2022 End: 10-08-2022 Patient encounter procedure [facility] Start: 07-17-2022 End: 07-17-2022 Patient encounter procedure JOEL Duval DEMOND BELL TIER-CHANNEL MARKETING MANAGER [facility] Start: 08-01-2021 End: 08-05-2021 Outreach Lab JOEL Duval DEMOND BELL TIER-CHANNEL MARKETING MANAGER [facility] Start: 08-01-2021 End: 08-01-2021 Patient encounter procedure JOEL Duval DEMOND BELL TIER-CHANNEL MARKETING MANAGER [facility] Procedures Date Procedure Procedure Detail Performing Clinician Start: 01-14-2025 Alternaria alternata KERON Lagos [employer] ENGINEER-C Work Phone: Start: 01-14-2025 Danish cockroach RASRocío Lagos [employer] ENGINEER-C Work Phone: Start: 01-14-2025 Antibody measurement Hank Lagos [employer] ENGINEER-C Work Phone: Comment on above: The atypical pANCA p attern has been observed in asignificant percentage of patients with ulcerative colitis,primary sclerosing cholangitis and autoimmune hepatitis. Start: 01-14-2025 Box elder KERON Lagos [employer] ENGINEER-C Work Phone: Start: 01-14-2025 Cat dander RAST Joel Demond [employer] ENGINEER-C Work Phone: Start: 01-14-2025 [place] RAST Joel Narciso tmer [employer] ENGINEER-C Work Phone: Start: 01-14-2025 Common ragweed RAST Marly aldana Cloverdale [employer] ENGINEER-C Work Phone: Start: 01-14-2025 Common silver birch RAST Joel Demond [employer] ENGINEER-C Work Phone: Start: 01-14-2025 House dust mite (Df) RAST Joel Demond [employer] ENGINEER-C Work Phone: Start: 01-14-2025 Mouse urine proteins RAST Joel Demond [employer] ENGINEER-C Work Phone: Start: 01-14-2025 Pecan nut RAST Joel Lagos [employer] ENGINEER-C Work Phone: Start: 01-14-2025 Penicillium chrysoge num RAST Joel Demond [employer] ENGINEER-C Work Phone: Start: 01-14-2025 Trinidadian thistle RAST Hank lyon Demond [employer] ENGINEER-C Work Phone: Start: 01-14-2025 Tree pollen RAST Rafaela Lagos [employer] ENGINEER-C Work Phone: Start: 01-14-2025 [place] pollen RAST Rafaela Lagos [employer] ENGINEER-C Work Phone: Start: 06-17-1992 section RAFAELA LAGOS BELL TIER-CHANNEL MARKETING MANAGER None (qualifier value) CHAN LAGOS BELL TIER-CHANNEL MARKETING MANAGER Plan of Treatment Date Care Activity Detail Author Start: 04-06-2025 Cardiovascular stress testing [facility] Start: 01-14-2025 Measurement of respi ratory function [facility] CBC W Auto Different ial panel - Blood [facility] IgE [Units/volume] i n Serum or Plasma [facility] Immunizations Immunization Date Immunization Notes Care Provider Fa mary 08-24-2021 SARS-CoV-2 (COVID-19 ) mRNA-1273 vaccine JOEL DEMOND BELL TIER-CHANNEL MARKETING MANAGER [facility] 07-27-2021 SARS-CoV-2 (COVID-19 ) mRNA-1273 vaccine JOEL DEMOND BELL TIER-CHANNEL MARKETING MANAGER [facility] 03-17-2018 influenza virus vaccine, unspecified formulation JOEL DEMOND BELL TIER-CHANNEL MARKETING MANAGER [facility] Payers Date Payer Category Payer Unknown [id number] 2018 Self-pay 1970 Unknown [id number] 2.16.8 40.1.599439.3.579.2. 1970 Unknown [id number] .16.8 40.1.491805.3.579.2 1970 Unknown [id number] 40.1.287262.3.579.2 1970 Unknown [id number] .16.8 40.1.479978.3.579.2.62 1970 Unknown [id number] 2.. 840.1.232379.3.579.2.62 1970 Unknown [id number] 2.16. 840.1.855773.3.579.2.62 1970 Unknown [id number] 2.16. 840.1.040960.3.579.2. 1970 Unknown [id number] 2.16. 840.1.417431.3.579.2.62 1970 Unknown [id number] 2.16.8 40.1.628543.3.579.2.627 1970 Unknown [id number] 2.16.8 40.1.426795.3.579.2.627 1970 Unknown [id number] 2.16.8 40.1.865379.3.579.2.627 Self-pay [id number] Unknown [id number] 2.16.8 40.1.968401.3.579.2.462 Unknown [id number] 2.16.8 40.1.954715.3.579.2.462 Unknown [id number] 2.16.8 40.1.508278.3.579.2.462 Unknown [id number] 2.16.8 40.1.286258.3.579.2.462 Unknown [id number] 2.16.8 40.1.830337.3.579.2.462 Social History Date Type Detail Facility Start: 07-17-2019 End: 01-07-2025 Never smoked tobacco (finding) [facility] Start: 1970 Sex Assigned At Female [facility] Sexual Orientation [facility] Start: 12-10-2018 Sex Female (finding) [facility] Sex Female [facility] Clinical Notes 08-01-2021 to 04-06-2025 Note Date & Type Note Facility 04-06-2025 Progress note [facility] 04-06-2025 Progress note Note Date/Time April 06, 2025 3:35pm [facility] Pulmonary Medicine [address] [place], [place] [address] OFFICE VISIT Date of Service: 04/06/25 MR#: [id number] Acct: [id number] Name: MEGAN ESPINOZA Rep #: [id number] : 1970 Provider: Mary zayas NP Age/Sex: 55/F Location[place] [facility] Status: Signed Assessment and Plan Assessment and [...] These 2 tests were previously ordered through [employer] system but the patient is self pay and [employer] is not giving them prices. (2) Chronic [...] Additional Comments: This note was generated with [employer] dictation software. It may contain incorrect words, [...] The patient is employed working as an registrar assistant at a shelter facility. She does not currently keep any animals as pets in her home environment. Prior pulmonary function studies completed through [facility] in September 2024 demonstrated no evidence of [...] patient. Intake Visit Reasons: 4 wk fu Bench Machine Operator Required: No DME Vendor: n/a Accompanied by: [...] type: does not use caffeine: No Questionnaire Eminence Sleepiness Scale Eminence Sleepiness Scale Sitting and readin = Would [...] in traffic: 0 = Would never doze Eminence Sleepiness Scale Total Score: 7 Review of [...] 04/06/25 1508 <Electronically signed by Mary bennett ELECTRO OPTICS ENGINEER-C> Date _ Mary Valdivia ELECTRO OPTICS ENGINEER-C Cosigner Signature: Date (if applicable) CC: ~ [facility] Work Phone: 1(342) 400-351407-31-2025 Evaluation note* Diagnosis Onset Date Resolution Status Admit Date Chronic cough chronic January 14, 2025 10:22am [facility] Work Phone: 1(723) 472-920007-31-2025 Evaluation note* Diagnosis Onset Date Resolution Status Admit Date Chronic cough chronic January 14, 2025 10:22am Chronic cough chronic February 152024 9:24am [facility] Work Phone: 1(554) 155-442907-31-2025 Evaluation note* Diagnosis Onset Date Resolution Status Admit Date Chronic cough chronic January 14, 2025 10:22am Chronic cough chronic February 152024 9:24am Shortness of breath acute Octob er 2024 1:36pm Chronic cough chronic March 1:36pm [facility] Work Phone: 1(168) 996-784606-16-2025 Evaluation + Plan note Future Scheduled Tests Radiology* CT Thorax w/o Contrast 11/30/24 [facility] 02-06-2025 Note* Exam Date Time Procedure Performing Provider Status 07/23/24 1:56 PM XR Chest 2 Views DWIGHT HU DO; [facility] (Verified) [id number] ORIGINAL EXAMINATION: TWO XRAY VIEWS OF THE [...] 07/23/2024 3:24:57 PM Ordering Provider: JOEL LAGOS [facility]08-15-2024 Note. MICRO - Microbiology PROCEDURE: Affirm Pathogens [...] Locations *1: This test was performed at: [facility], [address] [place] [address], [facility] , [facility] ([place])07-23-2023 Evaluation + Plan note Future Scheduled Tests Laboratory* Hepatitis C Antibody IgG 07/23/23 Radiology* MA Mammo Screening Bilateral w/ Dirk 04/05/23 [facility] 10-20-2023 Evaluation + Plan note Future Scheduled Tests Radiology* MA Mammo Screening Bilateral w/ Dirk 04/05/23 [facility] 02-15-2022 Evaluation + Plan note Future Scheduled Tests Laboratory* Pathology Autotransfusionist Request 08/01/21 Radiology* XR Hip Minimum 2 Views Right 08/24/20 * XR Hand and Wrist 6 Views Right 09/14/20 [facility] 02-15-2022 Evaluation + Plan note Future Scheduled Tests Laboratory* Pathology Autotransfusionist Request 08/01/21 [facility] Evaluation noteNo assessment information available [facility] Work Phone: Evaluation note* Diagnosis Onset Date Resolution Status Admit Date Asthma acute January 14 10:22am Chronic cough chronic January 14, 2025 10:22am [facility] Work Phone: Hospital course Narrative No data available for this section [facility] Hospital Discharge instructions No data available for this section [facility] Progress note No data available for this section [facility] Reason for referral (narrative)No reason for referral [facility] Work Phone: Summary Purpose Family History [...] section and content) DATE CREATED AUTHOR 01/04/2020 [facility] DATE CREATED AUTHOR AUTHOR'S ORGANIZ ATION 02/03/2024 [facility] ([place]) DATE CREATED AUTHOR AUTHOR'S ORGANIZ ATION 04/07/2025 [facility] DATE CREATED AUTHOR AUTHOR'S ORGANIZ ATION 04/21/2025 [facility] Care Team (unrecognized sect ion and content) Care Team Personnel Name: Kierra Abernathy Clerelvis Muniz PT Position: P3 Scheduling - Journeyman Wireman Advanced Member Role: Other Name: JOEL LAGOS BELL TIER-CHANNEL MARKETING MANAGER Position: P4 Advanced Practice Nurse Member Role: Primary Care Physician Address: Address: [address] [place] [address]- [place] Care Team Related Persons Name: SAGAR ESPINOZA Care Teams (unrecognized sec tion and content) Team Status: Active Member Role Status Dates Joel Lagos ELECTRO OPTICS ENGINEER, ELECTRO OPTICS ENGINEER-C Family Provider Active Joel Lagos ELECTRO OPTICS ENGINEER, ELECTRO OPTICS ENGINEER-C Primary Care Provider Active Team Status: Inactive Member Role Status Dates Joel Lagos NP, ELECTRO OPTICS ENGINEER-C Primary Care Provider Active Dr. En Stockton MD Attending Provider, Referring Provider Active Team Status: Active Member Role/Relationship Status Dates Joel Lagos ELECTRO OPTICS ENGINEER, ELECTRO OPTICS ENGINEER-C Family Provider Active Joel Lagos ELECTRO OPTICS ENGINEER, ELECTRO OPTICS ENGINEER-C Primary Care Provider Active Team Status: Inactive Member Role/Relationship Status Dates Joel Lagos ELECTRO OPTICS ENGINEER, ELECTRO OPTICS ENGINEER-C Primary Care Provider Active Start: January 14, 2025 End: January 14, 2025 Joel Lagos ELECTRO OPTICS ENGINEER, ELECTRO OPTICS ENGINEER-C Referring Provider Active Start: January 14, 2025 End: January 14, 2025 Dr. Akin Meredith DO Attending Provider Active S tart: January 14, 2025 End: January 14, 2025 Team Status: Inactive Member Role/Relationship Status Dates Joel Lagos NP, ELECTRO OPTICS ENGINEER-C Primary Care Provider Active Start: January 14, 2025 End: January 14, 2025 Dr. Akin Meredith DO Attending Provider Active S tart: January 14, 2025 End: January 14, 2025 Dr. Akin Meredith , Referring Provider Active S tart: January 14, 2025 End: January 14, 2025 Team Status: Inactive Member Role/Relationship Status Dates Joel Lagos ELECTRO OPTICS ENGINEER, ELECTRO OPTICS ENGINEER-C Primary Care Provider Active Start: March 02, 2025 End: March 02, 2025 Joel Lagos ELECTRO OPTICS ENGINEER, ELECTRO OPTICS ENGINEER-C Referring Provider Active Start: March 02, 2025 End: March 02, 2025 Mary Valdivia NP-C Attending Provider Active Start: March 02, 2025 End: March 02, 2025 Team Status: Active Member Role/Relationship Status Dates Joel Lagos ELECTRO OPTICS ENGINEER, ELECTRO OPTICS ENGINEER-C Primary care physician Active Team Status: Inactive Member Role/Relationship Status Dates Joel Lagos ELECTRO OPTICS ENGINEER, ELECTRO OPTICS ENGINEER-C Primary care physician Active Start: January 14, 2025 End: January 14, 2025 Joel Lagos ELECTRO OPTICS ENGINEER, ELECTRO OPTICS ENGINEER-C Referring Provider Active Start: January 14, 2025 End: January 14, 2025 Dr. Akin Meredith , Attending physician Active Start: January 14, 2025 End: January 14, 2025 Team Status: Inactive Member Role/Relationship Status Dates Joel Lagos NP, ELECTRO OPTICS ENGINEER-C Primary care physician Active Start: January 14, 2025 End: January 14, 2025 Dr. Akin Meredith DO Attending physician Active Start: January 14, 2025 End: January 14, 2025 Dr. Akin Meredith DO Referring Provider Active S tart: January 14, 2025 End: January 14, 2025 Team Status: Inactive Member Role/Relationship Status Dates Joel Lagos NP, ELECTRO OPTICS ENGINEER-C Primary care physician Active Start: March 02, 2025 End: March 02, 2025 Joel Lagos ELECTRO OPTICS ENGINEER, ELECTRO OPTICS ENGINEER-C Referring Provider Active Start: March 02, 2025 End: March 02, 2025 Mary Valdivia NP-C Attending physician Active Start: March 02, 2025 End: March 02, 2025 Team Status: Inactive Member Role/Relationship Status Dates Joel Lagos NP, ELECTRO OPTICS ENGINEER-C Primary care physician Active Start: April 06, 2025 End: April 06, 2025 Joel Lagos ELECTRO OPTICS ENGINEER, ELECTRO OPTICS ENGINEER-C Referring Provider Active Start: April 06, 2025 [...] BE BASED ON THE PRIMARY CLINICAL RECORDS. [employer] provides no warranty or guarantee of the accuracy or completeness of information in this document.
== END | disposition home or self-care (01) ==
LOC: SL 13:02
PROVIDERS: PCP Nurse Practitioner Primary Care; Referring Provider Nurse Practitioner Family; Visit Provider Nurse Practitioner Family
DX: R06.02 Shortness of breath (principal)
CPT/HCPCS: 94762

== ENCOUNTER → 2025-06-15 | Outpatient (CLI) | payer SELFPAY ==
--- NOTE | 2025-06-15 13:43 | SP.MBSS_ITS ---
Modified Barium Swallow Patient Information Study Date: 06/15/25 Study Time: 13:00 Direct Billable Minutes: 84 Total Minutes procedure & reportin Diagnosis: Chronic cough R05.3 Referring Physician: Mary Valdivia Reason for Referral: Assess swallow function, assess risk for aspiration, and determine recommendations for any necessary dysphagia interventions. Medical History: The patient was referred by pulmonology for this MBSS d/t coughing w/ swallowing and PNA 3X in the past 2 years. Pt has a chronic cough managed w/ inhaler. She also was placed on a PPI, which somewhat improved her coughing. Patient reports occ pain (~2-3X/month) at the level of her chest when she swallows a pill and it becomes caught. 1-2X in the past, she has regurgitated from coughing so hard. Pt admits to some bad habits w/ eating, including taking large bites, eating quickly, and talking while eating/drinking. She feels her breathing is uncoordinated while eating at times. She reports that when she eats/drinks carefully (slow rate, small bites/sips, limiting talking), she doesn?t cough. No hx of GI work up per patient. Medical History Mixed hyperlipidemia Migraines Cyclothymic disorder Hypertension Ground glass opacity present on imaging of lung Leukocytosis Hypothyroidism Wheezing Current Diet Ordered: Regular textures / Thin liquids Dentition: Natural Teeth Mental Status: WNL Respiratory Status: Oxygenating on Room Air Penetration-Aspiration Scale Penetration-Aspiration Scale: OBJECTIVE ASSESSMENT OF SWALLOW FUNCTION (QUANTITATIVE ? PER TRIAL): PENETRATION / ASPIRATION SCALE (JOHN): 1 = does not enter airway 2 = enters airway/above vocal folds/ejected 3 = enters airway/above vocal folds/not ejected 4 = enters airway/contacts vocal folds/ejected 5 = enters airway/contacts vocal folds/not ejected 6 = enters airway/below vocal folds/ejected 7 = enters airway/below vocal folds/not ejected despite effort 8 = enters airway/below vocal folds/no effort VIDEOFLOROSCOPIC SCALE SCORE (JOHN): Grade I = aspiration of material that has penetrated into the laryngeal vestibule, intact cough reflex Grade II = aspiration < 10 % of the bolus, intact cough reflex Grade III = aspiration of < 10 % of the bolus, reduced cough reflex or aspiration of > 10 % of the bolus, intact cough reflex Grade IV = aspiration of > 10 % of the bolus, reduced cough reflex Penetration-Aspiration Scale Score Thin Liquid via teaspoon: Result: 1= does not enter airway Thin Liquid via teaspoon Trial 2: Result: 2= enter airway/above vocal folds/ejected Thin Liquid via large single sip: cup: Result: 1= does not enter airway Thin Liquid via sequential sips: cup: Result: 1= does not enter airway Pudding via teaspoon: Result: 1= does not enter airway Comment: Esophageal screen - Retention of pudding in the upper and middle esophagus. Thin Liquid via sequential sips:straw: Result: 2= enter airway/above vocal folds/ejected Comment: Esophageal screen - Liquid washes were mostly effective in clearing pudding retention through the LES. Mild retention remaining in the middle and lower esophagus, retrograde flow remaining well below the UES. 1/2 Cookie: Result: 1= does not enter airway Comment: Esophageal screen - Retention of cookie throughout the esophagus. Liquid wash provided, which somewhat cleared barium through the LES. Mild-moderate cookie retention remained in the esophagus. An additional liquid wash was provided and was not effective in clearing remaining cookie residues through the LES. Barium Tablet w/ water: Result: 1= does not enter airway Comment: Esophageal screen - Complete clearance provided 2 liquid washes. Oral Phase Labial Seal: No Labial Escape Tongue Control During Bolus Hold: Posterior escape of less than half of bolus Bolus Preparation/Mastication: Timely and efficient chewing and mashing Bolus Transport/Lingual Motion: Slowed tongue motion Oral Residue: Residue collection on oral structures Pharyngeal Phase Initiation of Pharyngeal Swallow: Bolus head in pyriforms Soft Palate Elevation: Trace column of contrast/air between soft palate and pharyngeal wall Laryngeal Elevation: Comp. Superior move thyroid cart w/comp. apprx arytenoid cart-epig pet Anterior Hyoid Excursion: Complete anterior movement Epiglottic Movement: Complete inversion Laryngeal Vestibule Closure at Height of Swallow: Incomplete; narrow column of air/contrast in laryngeal vestibule (trace laryngeal penetration w/ complete ejection 2X) Pharyngeal Stripping Wave: Present - complete Pharyngoesophageal Segment Opening: Parital distension and partial duration; parital obstruction of flow Tongue Base Retraction: Trace column of contrast between tongue base & post. pharyngeal wall Pharyngeal Residue: Trace residue within or on pharyngeal structures Esophageal Phase Esophageal Clearance: Esophageal retention w/ retrograde flow below pharyngoesophageal seg. Diagnosis/Impression Diagnosis: Esophageal dysphagia R13.14 [facility] [place]: Oropharyngeal swallow function is grossly WNL. Slowed tongue motion for A-P transport of pudding. Min posterior loss of liquids to the pharynx prior to swallow onset w/ some liquid trials. Complete mastication of cookie. Piecemeal deglutition of pudding and cookie w/ independent use of a second swallow as needed, which effectively cleared oral cavity of residues. Trace laryngeal penetration of thin liquids 2X, which fully ejected. No aspiration. Good pharyngeal motility w/ trace residues. The esophageal phase is primarily marked by... -Trace retention in the UES. -Significant retention of pudding in the upper and middle esophagus, which mostly cleared w/ thin liquid wash. -Significant retention of cookie throughout the esophagus, which somewhat cleared w/ thin liquid wash. Recommendations Diet: Regular Textures and Thin Liquids Comment: STOP meal if increased s/s of reflux, sensation of retention, or regurgitation despite use of strategies listed below and resume meal at a later time. Compensatory Strategies: Small Bites, Small Sips, Slow Rate, Alternate bites/solids and sips/liquids (1:1 ratio), Sitting upright and Remain sitting upright for 30 minutes after PO intake Recommend Repeat Modified Barium Swallow: No Need for Skilled Speech Therapy Services: No Recommended Referrals: GI Consult Education Completed: 1. Described result of evaluation. Status Active ST Patient: Active Contact Information [facility] Speech Therapy:: Deneen Hull M.A. [facility])-ELECTRONICS DESIGN ENGINEER Speech-Language Pathologist [facility] [address] [place] [address] [email or web address] [phone]
== END | disposition home or self-care (01) ==
PROVIDERS: PCP Nurse Practitioner Primary Care; Referring Provider Nurse Practitioner Family; Visit Provider Nurse Practitioner Family
DX: R05.3 Chronic cough (principal)
CPT/HCPCS: 74230; 92611